=== PATIENT | male | born 1970 | race Caucasian/White ===

== ENCOUNTER 2023-05-01 14:08 | Outpatient (OUT) | payer OTHER, SELFPAY | END 2023-05-01 14:09 | disposition home or self-care (01) | LOC: WC 14:08 | PROVIDERS: PCP Family Medicine; Visit Provider Physician Assistant | DX: L97.909 Non-pressure chronic ulcer of unspecified part of unspecified lower leg with unspecified severity (principal); G62.9 Polyneuropathy, unspecified; L97.521 Non-pressure chronic ulcer of other part of left foot limited to breakdown of skin; S90.822A Blister (nonthermal), left foot, initial encounter; L08.89 Other specified local infections of the skin and subcutaneous tissue; L84 Corns and callosities; L72.0 Epidermal cyst; J44.9 Chronic obstructive pulmonary disease, unspecified; M13.80 Other specified arthritis, unspecified site; R73.9 Hyperglycemia, unspecified; I73.89 Other specified peripheral vascular diseases | CPT/HCPCS: 11043; 36415; 80048; 83036; 85025; G0463 ==

== ENCOUNTER 2023-05-01 14:51 | Outpatient (OUT) | payer OTHER, SELFPAY ==
[2023-05-01 15:11] LABS: Basophils Absolute Auto 0.1 10^3/uL (0.0-0.1); Basophils Percent Auto 0.7 % (0.2-2.0); Eosinophils Absolute Auto 0.3 10^3/uL (0.0-0.7); Eosinophils Percent Auto 2.4 % (0.9-7.0); Hematocrit 52.6 % (42.0-54.0); Hemoglobin 18.2 g/dL (14.0-18.0); Immature Granulocytes Abs Auto 0.05 10^3/uL (0.00-0.03); Immature Granulocytes Pct Auto 0.5 % (0.0-0.5); Lymphocytes Absolute Auto 2.9 10^3/uL (1.2-3.8); Lymphocytes Percent Auto 26.6 % (20.5-60.0); Mean Corpuscular HGB Conc 34.6 g/dL (29.9-35.2); Mean Corpuscular Hemoglobin 30.5 pg (25.9-34.0); Mean Corpuscular Volume 88.3 fL (80.0-94.0); Mean Platelet Volume 9.6 fL (9.5-13.5); Monocytes Absolute Auto 1.3 10^3/uL (0.3-0.8); Monocytes Percent Auto 11.8 % (1.7-12.0); Neutrophils Absolute Auto 6.2 10^3/uL (1.4-6.5); Platelet Count 266 10^3/uL (150-450); Red Blood Count 5.96 10^6/uL (4.70-6.10); Red Cell Distribution Width 13.3 % (11.0-15.0); White Blood Count 10.7 10^3/uL (4.0-11.0)
[2023-05-01 15:49] LABS: Anion Gap 13.6; BUN Creatinine Ratio 23.5; Calcium 9.8 mg/dL (8.5-10.1); Carbon Dioxide 28.8 mmol/L (21.0-32.0); Chloride 104 mmol/L (98-107); Estimated GFR (African America >60 (>=60); Estimated GFR (Non-African Ame >60 (>=60); Glucose 113 mg/dL (74-106); Potassium 5.4 mmol/L (3.5-5.1); Sodium 141 mmol/L (136-145)
[2023-05-01 15:52] LABS: Estimated Average Glucose 105 mg/dL; Glycohemoglobin A1C 5.3 % (4.5-6.2)
== END 2023-05-01 14:52 | disposition home or self-care (01) ==
LOC: LAB 14:52
PROVIDERS: PCP Family Medicine; Visit Provider Physician Assistant
DX: L97.909 Non-pressure chronic ulcer of unspecified part of unspecified lower leg with unspecified severity (principal); G62.9 Polyneuropathy, unspecified
CPT/HCPCS: 36415; 80048; 83036; 85025

== ENCOUNTER 2023-05-16 09:54 | Outpatient (OUT) | payer OTHER, SELFPAY ==
--- NOTE | 2023-05-16 09:59 | XR_ITS ---
The [address] [address] Patient Name: CHAKA DE LEÓN MRN: [id number] date: 1970 Sex: M Assigned Patient Location: Current Patient Location: Accession/Order Number: [id number] Exam Date: 05/16/2023 09:59 Report Date: 05/16/2023 12:42 At the request of: IMAN MIGUEL Procedure: XR foot LT min 3V EXAM: XR foot LT min 3V HISTORY: Left foot pain. COMPARISON: None. TECHNIQUE: 3 views left foot. FINDINGS: No fracture or dislocation. Mild to moderate degenerative change of the great toe MTP joint. Radiographically no focal soft tissue swelling or bone destruction seen. No radiopaque foreign body. XR/XR foot LT min 3V IMPRESSION: No acute process seen radiographically. Further workup with MRI could be obtained if indicated. Electronically authenticated by: RAINE KNIGHT Date: 05/16/2023 12:42
== END 2023-05-16 09:55 | disposition home or self-care (01) ==
LOC: WC 09:55
PROVIDERS: PCP Family Medicine; Visit Provider Podiatrist Foot & Ankle Surgery
DX: M79.672 Pain in left foot (principal); L97.521 Non-pressure chronic ulcer of other part of left foot limited to breakdown of skin
CPT/HCPCS: 73630; G0463

== ENCOUNTER 2023-06-02 10:14 | Outpatient (OUT) | payer OTHER, SELFPAY ==
--- NOTE | 2023-06-02 10:13 | ECG_ITS ---
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
--- NOTE | 2023-06-02 10:31 | XR_ITS ---
The [address] [address] Patient Name: CHAKA DE LEÓN MRN: [id number] date: 1970 Sex: M Assigned Patient [facility]: [facility] Current Patient Location: [facility] Accession/Order Number: [id number] Exam Date: 06/02/2023 10:54 Report Date: 06/02/2023 11:04 At the request of: IMAN MIGUEL Procedure: XR chest 2V EXAM: XR chest 2V HISTORY: PRE OP EXAM COMPARISON: None. TECHNIQUE: PA and lateral views of the chest. FINDINGS: The cardiomediastinal silhouette is normal. Apparent 17.3 mm pulmonary nodule of the right midlung field. This is poorly visualization of the lateral view. There is no pneumothorax. No pleural effusion is noted. The osseous structures are intact. XR/XR chest 2V IMPRESSION: Apparent 17.3 mm pulmonary nodule of the right midlung field. This is poorly visualization of the lateral view. Further evaluation with CT is recommended. Electronically authenticated by: BRADLEY CRANE Date: 06/02/2023 11:04
--- NOTE | 2023-06-02 10:51 | P.GSHP_ITS ---
History of Present Illness History of Present Illness Chief complaint: ulcer of left great toe Narrative: Patient presents for preadmission testing. Please see HPI from Dr. Robbins dated 05/16/2023. Review of Systems ROS Narrative REVIEW OF SYSTEMS: Negative except as stated in HPI, ten or more systems reviewed. Constitutional: No fever , chills, weakness ENT: No sore throat or epistaxis Cardiovascular: No edema, chest pain, palpitations, or activity intolerance Respiratory: No shortness of breath, cough, or wheezing Gastrointestinal: No abdominal pain, constipation, diarrhea, or vomiting Genitourinary: No dysuria or hematuria Neurological: No numbness, tingling, weakness, or headache Psychiatric: No mood changes PFSH PFS Medical History (Updated 06/02/23 @ 10:26 by Rochelle Urban NP) Surgical History (Updated 06/02/23 @ 10:26 by Rochelle Urban NP) Family History (Updated 06/02/23 @ 10:26 by Rochelle Urban NP) Other Family history of diabetes mellitus Family history of heart disease Family history of hypertension Family history of lung cancer Social History (Updated 06/02/23 @ 10:23 by Rochelle Urban NP) Within the past year, how often did you have a drink containing alcohol: never Score interpretation: A score less than 4 is consistent with normal alcohol consumption. Smoking status: Current every day smoker What tobacco products do you use: cigarettes Pack-years instructions: Please document either packs per day or cigarettes per day in order for pack years to calculate correctly. If using both packs per day and cigarettes per day, please make sure that they denote the same thing. If they differ, pack- years will calculate based on packs per day. Packs Per Day Cigarettes Per Day 1/4 of a pack 5 1/2 a pack 10 3/4 of a pack 15 1 pack 20 1.5 pack 30 2 packs 40 2.5 packs 50 3 packs 60 Packs per day: 2 Years smoked: 35 Smoking pack-years: 70.00 Highest level of school completed/degree received: high school graduate Meds Home Medications and Allergies Allergies Allergy/AdvReac Type Severity Reaction Status Date / Time No Known Drug Allergies Allergy Verified 06/02/23 10:22 Exam Narrative Exam Narrative: Constitutional: Awake, alert, comfortable, well-appearing, nontoxic, interactive, vital signs as charted Head: Normocephalic, atraumatic Neck: Supple, normal appearance, normal range of motion, no meningeal signs, no lymphadenopathy Respiratory: No respiratory distress, breath sounds clear Cardiovascular: Regular rate, irregular rhythm, systolic murmur noted Psychiatric: Oriented ?3, normal affect Assessment and Plan Assessment and Plan (1) Callus of foot: (2) Toe ulcer: Plan Left 1st MPJ fusion scheduled with Dr. Robbins 06/08/2023.
== END 2023-06-02 10:15 | disposition home or self-care (01) ==
PROVIDERS: PCP Emergency Medicine; Visit Provider Podiatrist Foot & Ankle Surgery
DX: Z01.810 Encounter for preprocedural cardiovascular examination (principal); L97.521 Non-pressure chronic ulcer of other part of left foot limited to breakdown of skin
CPT/HCPCS: 71046; 93005; G0463

== ENCOUNTER 2023-06-30 08:56 | Outpatient (OUT) | payer OTHER, SELFPAY | END 2023-06-30 08:57 | disposition home or self-care (01) | LOC: WC 08:56 | PROVIDERS: PCP Emergency Medicine; Visit Provider Podiatrist Foot & Ankle Surgery | DX: L97.521 Non-pressure chronic ulcer of other part of left foot limited to breakdown of skin (principal) | CPT/HCPCS: 11042 ==

== ENCOUNTER 2023-07-07 08:59 | Outpatient (OUT) | payer OTHER, SELFPAY | END 2023-07-07 09:00 | disposition home or self-care (01) | LOC: WC 08:59 | PROVIDERS: PCP Emergency Medicine; Visit Provider Podiatrist Foot & Ankle Surgery | DX: L97.521 Non-pressure chronic ulcer of other part of left foot limited to breakdown of skin (principal) | CPT/HCPCS: G0463 ==

== ENCOUNTER 2023-07-13 13:34 | Outpatient (OUT) | payer OTHER, SELFPAY ==
[2023-07-13 09:20] LABS: Hemoglobin 17.5 g/dL (14.0-18.0)
[2023-07-13] MEDS: ALBUTEROL SULFATE 2.5 MG/3 ML VIAL NEB IH (10:15)
--- NOTE | 2023-07-13 10:19 | RT_ITS ---
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 Findings were considered accurate and reproducible, with exception of pre-bronchodilator FVC which did not meet ATS standards. Both pre- and post-bronchodilator values utilized for spirometry. Due to software limitations, unable to assess for any prior studies for comparison. Spirometry (based on pre-bronchodilator values): -FEV1/FVC: Reduced @ 53% -FEV1: Mildly reduced @ 81% -FVC: Normal @ 119% -There is a partial bronchodilator response in FEV1 which meets >200mL increase but <12% change. Lung volumes by plethysmography (based on pre-bronchodilator values): -RV: High normal @ 117% -TLC: High normal @ 118% Diffusion capacity: -DLCO: Very severe reduction @ 37% when corrected for Hb 17.5g/dL Impressions: -Spirometry consistent with a mild obstruction with a partial bronchodilator response, normal lung volumes, and a very severe diffusion impairment which appears out of proportion to the remainder of the study. Hemoglobin is elevated suggesting a secondary polycythemia, likely associated with the reduced DLCO. Overall study is compatible with COPD/emphysema, though there may be an additional process contributing to the decreased DLCO (e.g. cardiac, ILD, smoking prior to the testing). Clinical correlation required. Electronically Signed On 07-13-2023 13:33:32 EDT by Sang Edwards
== END 2023-07-13 13:35 | disposition home or self-care (01) ==
LOC: CARD 13:35
PROVIDERS: PCP Emergency Medicine; Visit Provider Internal Medicine
DX: J43.2 Centrilobular emphysema (principal)
CPT/HCPCS: 36415; 85018; 94060; 94726; 94729; 99406

== ENCOUNTER 2023-07-17 15:09 | Outpatient (OUT) | payer OTHER, SELFPAY | END 2023-07-17 15:10 | disposition home or self-care (01) | LOC: WC 15:09 | PROVIDERS: PCP Emergency Medicine; Visit Provider Physician Assistant | DX: L97.521 Non-pressure chronic ulcer of other part of left foot limited to breakdown of skin (principal) | CPT/HCPCS: 11042 ==

== ENCOUNTER 2023-07-31 15:28 | Outpatient (OUT) | payer OTHER, SELFPAY | END 2023-07-31 15:29 | disposition home or self-care (01) | LOC: WC 15:28 | PROVIDERS: PCP Emergency Medicine; Visit Provider Physician Assistant | DX: L97.521 Non-pressure chronic ulcer of other part of left foot limited to breakdown of skin (principal) | CPT/HCPCS: G0463 ==

== ENCOUNTER 2023-08-18 09:03 | Outpatient (OUT) | payer OTHER, SELFPAY | END 2023-08-18 09:04 | disposition home or self-care (01) | LOC: WC 09:04 | PROVIDERS: PCP Emergency Medicine; Visit Provider Podiatrist Foot & Ankle Surgery | DX: L97.521 Non-pressure chronic ulcer of other part of left foot limited to breakdown of skin (principal) | CPT/HCPCS: G0463 ==

== ENCOUNTER 2023-09-07 10:13 | Outpatient (OUT) | payer OTHER, SELFPAY ==
[2023-09-07 11:11] LABS: Alanine Aminotransferase 31 U/L (16-63); Albumin Level 3.6 g/dL (3.4-5.0); Alkaline Phosphatase 114 U/L (46-116); Anion Gap 12.7; Aspartate Amino Transferase 19 U/L (15-37); BUN Creatinine Ratio 23.3; Bilirubin Total 0.3 mg/dL (0.2-1.0); Calcium 8.8 mg/dL (8.5-10.1); Carbon Dioxide 28.3 mmol/L (21.0-32.0); Chloride 104 mmol/L (98-107); Estimated GFR (African America >60 (>=60); Estimated GFR (Non-African Ame >60 (>=60); Globulin 3.5 g/dL; Glucose 101 mg/dL (74-106); Sodium 141 mmol/L (136-145); Total Protein 7.1 g/dL (6.4-8.2)
[2023-09-07 11:49] LABS: Basophils Absolute Auto 0.1 10^3/uL (0.0-0.1); Basophils Percent Auto 0.5 % (0.2-2.0); Eosinophils Absolute Auto 0.4 10^3/uL (0.0-0.7); Eosinophils Percent Auto 3.2 % (0.9-7.0); Hematocrit 49.1 % (42.0-54.0); Hemoglobin 16.5 g/dL (14.0-18.0); Immature Granulocytes Abs Auto 0.03 10^3/uL (0.00-0.03); Immature Granulocytes Pct Auto 0.3 % (0.0-0.5); Mean Corpuscular HGB Conc 33.6 g/dL (29.9-35.2); Mean Corpuscular Volume 92.1 fL (80.0-94.0); Mean Platelet Volume 10.1 fL (9.5-13.5); Monocytes Absolute Auto 1.1 10^3/uL (0.3-0.8); Monocytes Percent Auto 9.7 % (1.7-12.0); Neutrophils Absolute Auto 6.6 10^3/uL (1.4-6.5); Neutrophils Percent Auto 59.3 % (43.0-75.0); Platelet Count 242 10^3/uL (150-450); Red Blood Count 5.33 10^6/uL (4.70-6.10); Red Cell Distribution Width 12.7 % (11.0-15.0); White Blood Count 11.1 10^3/uL (4.0-11.0)
== END 2023-09-07 10:14 | disposition home or self-care (01) ==
LOC: PST 10:14
PROVIDERS: PCP Emergency Medicine; Visit Provider Podiatrist Foot & Ankle Surgery
DX: L97.521 Non-pressure chronic ulcer of other part of left foot limited to breakdown of skin (principal); Z01.812 Encounter for preprocedural laboratory examination
CPT/HCPCS: 36415; 80053; 85025

== ENCOUNTER 2025-06-11 11:27 | Outpatient (OUT) | payer OTHER, SELFPAY ==
--- OUTSIDE RECORDS SUMMARY | 2025-06-11 11:29 | XMS_ITS | Encounter Summary ---
Author Organization [facility] Address [address] [place] [address] Phone Care Team Providers Care Lithographing Machine Operator Name Role Phone Marguerite Degroot DO Primary Care Provider [phone] Marguerite Degroot DO Primary Care Provider [phone] Encounter Details Date Type Department Care Team (Late st Contact Info) Description 08/16/2023 Scanned Document [facility] [address] [place] [id number] Scanning, Generic Provider Social History Tobacco Use Types Packs/Day Years Used Date Smoking Tobacco: Never Assessed Sex and Gender Information Value Date Recorded Sex Assigned at Not on file Legal Sex Male 3:19 PM EDT Gender Identity Not on file Sexual Orientation Not on file COVID-19 Exposure Response Date Recorded In the last 10 days, have yo u been in contact with someone who was confirmed or suspected to have Coronavirus/COVID-19? No / Unsure 08/15/2023 8:33 AM EDT documented as of this encounter Plan of Treatment Not on file documented as of this encounter Procedures Procedure Name Priority Date/Time Associated Diagnosis Comments CARDIAC STRESS TEST 08/16/2023 documented in this encounter Results * CARDIAC STRESS TEST (08/16/2023) Narrative 08/16/2023 Ordered by an unspecified provider. us Generic Provider Scanning CV STRESS PROCEDURES F inal Result documented in this encounter Visit Diagnoses Not on filedocumented in this encounter Care Teams Lithographing Machine Operator Relationship Specialty Start Date End Date Marguerite Degroot DO [address] [place], [place] [id number] PCP - General 06/27/23 09/14/23 Marguerite Degroot DO [address] [place] [address] PCP - General Family Medicine 09/15/23 documented as of this encounter
--- OUTSIDE RECORDS SUMMARY | 2025-06-11 11:29 | XMS_ITS | Encounter Summary ---
Author Organization [facility] Address [address] [place] [address] Phone Care Team Providers Care Ballistic Expert Name Role Phone Magruerite Degroot DO Primary Care Provider [phone] Marguerite Degroot DO Primary Care Provider [phone] Encounter Details Date Type Department Care Team (Late st Contact Info) Description 06/27/2023 Scanned Document [facility] [address] [place] [address] Conversion, Onbase Social History Tobacco Use Types Packs/Day Years Used Date Smoking Tobacco: Never Assessed Sex and Gender Information Value Date Recorded Sex Assigned at Not on file Legal Sex Male 3:19 PM EDT Gender Identity Not on file Sexual Orientation Not on file documented as of this encounter Plan of Treatment Not on file documented as of this encounter Procedures Procedure Name Priority Date/Time Associated Diagnosis Comments ELECTROCARDIOGRAM RHYTHM STRIP 06/27/2023 documented in this encounter Results * ELECTROCARDIOGRAM RHYTHM STRIP (06/27/2023) Narrative 06/27/2023 Ordered by an unspecified provider. us Onbase Conversion ECG ORDERABLES Final Result documented in this encounter Visit Diagnoses Not on filedocumented in this encounter Care Teams Ballistic Expert Relationship Specialty Start Date End Date Marguerite Degroot DO [address] [place] [address] PCP - General 06/27/23 09/14/23 Marguerite Degroot DO [address] [place] [address] PCP - General Family Medicine 09/15/23 documented as of this encounter
--- OUTSIDE RECORDS SUMMARY | 2025-06-11 11:29 | XMS_ITS | Clinical Summary ---
Author Organization [facility] Address [address] [place] [address] Phone Care Team Providers Care Cyber Incident Handler Name Role Phone Marguerite Degroot Primary Care Provider [phone] Allergies No known active allergies Social History Tobacco Use Types Packs/Day Years Used Date Smoking Tobacco: Never Assessed Sex and Gender Information Value Date Recorded Sex Assigned at Not on file Legal Sex Male 3:19 PM EDT Gender Identity Not on file Sexual Orientation Not on file Last Filed Vital Signs Vital Sign Reading Time Taken Comments Blood Pressure 102/60 08/15/2023 11:20 AM EDT Pulse 73 08/15/2023 11:20 AM EDT Temperature - - Respiratory Rate - - Oxygen Saturation - - Inhaled Oxygen Concentration - - Weight 93 kg (205 lb) 08/15/2023 11:20 AM EDT Height 190.5 cm (6' 3 ) 08/15/2023 11:20 AM EDT Body Mass Index 25.62 08/15/2023 11:20 AM EDT Plan of Treatment Health Maintenance Due Date Last Done Comments CT Colonography 1970 Colonoscopy 1970 Colorectal Cancer Screening 1970 FIT-DNA (Cologuard) 1970 FIT 1970 HIV Screening 1970 Lipid Panel 1970 Sigmoidoscopy 1970 Yearly Adult Physical 1970 MMR Vaccines (1 of 1 - Stand romana series) 12/24/1971 Diabetes Screening 1988 Hepatitis C Screening 1988 Hepatitis B Vaccines (1 of 3 - 19+ 3-dose series) 1989 DTaP/Tdap/Td Vaccines (1 - Tdap) 1992 PSA Prostate Cancer Screening 2020 Pneumococcal Vaccine (1 of 1 - PCV) 2020 Zoster Vaccines (1 of 2) 2020 COVID-19 Vaccine (1 - 2023-2 5 season) 2024 Influenza Vaccine (#1) 2025 HIB Vaccines Aged Out No longer eligi ble based on patient's age to complete this topic HPV Vaccines Aged Out No longer eligi ble based on patient's age to complete this topic Hepatitis A Vaccines Aged Out No long er eligible based on patient's age to complete this topic IPV Vaccines Aged Out No longer eligi ble based on patient's age to complete this topic Meningococcal Vaccine Aged Out No tito palma eligible based on patient's age to complete this topic Rotavirus Vaccines Aged Out No longer eligible based on patient's age to complete this topic Insurance [employer] Care Teams Cyber Incident Handler Relationship Specialty Start Date End Date Marguerite Degroot DO [address] [place], [place] [id number] PCP - General Family Medicine 09/15/23
--- OUTSIDE RECORDS SUMMARY | 2025-06-11 11:30 | XMS_ITS | Clinical Summary ---
Author Organization [facility] Address [address] [place] [address] Care Team Providers Care Chicken And Fish Butcher Name Role Phone Marguerite Degroot MD Primary Care Provider Allergies No known active allergies Medications tiotropium-oloda terol (Stiolto Respimat) 2.5-2.5 MCG/ACT aerosol solution inhaler 1 (one) time each day at the same time. 07/12/2023 Active Active Problems Problem Noted Date Diagnosed Date Age-related nuclear cataract of left eye 23 Family History Medical History Relation Name Comments Cataracts Mother Diabetes Mother Relation Name Status Comments Mother Social History Tobacco Use Types Packs/Day Years Used Date Smoking Tobacco: Every Day Cigarettes Tobacco Cessation:Ready to Q uit: No; Counseling Given: Yes Sex and Gender Information Value Date Recorded Sex Assigned at Not on file Legal Sex Male 11:25 PM EDT Gender Identity Not on file Sexual Orientation Not on file Plan of Treatment Not on file Insurance [address] [place] [id number] [employer] Care Teams Chicken And Fish Butcher Relationship Specialty Start Date End Date Marguerite Degroot MD PCP - General Family Medicine 08/31/23
--- OUTSIDE RECORDS SUMMARY | 2025-06-11 11:30 | XMS_ITS | Encounter Summary ---
Author Organization [facility] Address [address] [place] [address] Phone Care Team Providers Care Actuarial Internship Name Role Phone Ambika Toscano APRN-HOME PARAPROFESSIONAL Primary Care Pro vider Marguerite Degroot DO Primary Care Provider [phone] Marguerite Degroot DO Primary Care Provider [phone] Encounter Details Date Type Department Care Team (Late st Contact Info) Description 06/22/[address] [facility] [address] [place] [address] Conversion, Onbase Social History Tobacco Use Types Packs/Day Years Used Date Smoking Tobacco: Never Assessed Sex and Gender Information Value Date Recorded Sex Assigned at Not on file Legal Sex Male 3:19 PM EDT Gender Identity Not on file Sexual Orientation Not on file documented as of this encounter Plan of Treatment Not on file documented as of this encounter Visit Diagnoses Not on filedocumented in this encounter Care Teams Actuarial Internship Relationship Specialty Start Date End Date Ambika Toscano APRN-CNP PCP - General 06/22/23 06/26/23 Marguerite Degroot DO [address] [place] [address] PCP - General 06/27/23 09/14/23 Marguerite Degroot DO [address] [place] [address] PCP - General Family Medicine 09/15/23 documented as of this encounter
--- OUTSIDE RECORDS SUMMARY | 2025-06-11 11:33 | XMS_ITS | CCD ---
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 Role Phone Anabell Degroot Primary Care Physician IMAN ROBBINS Attending Unavailable IMAN ROBBINS Admitting Unavailable ARASH, DR ROBIN Michael Primary Care Unavailable ARASH, DR ROBIN Michael Primary Care Unavailable MARILYNERTYSHABNAM Admitting Unavailabl e CLOUGHERTYSHABNAM Attending Unavailabl e CLOUGHERTYSHABNAM Attending Unavailabl e CLOUGHERTYSHABNAM Admitting Unavailabl e ARASH, DR ROBIN Michael Primary Care Unavailable ARASH, DR ROBIN Michael Primary Care Unavailable IMAN ROBBINS Consulting Unavailable IMAN ROBBINS Admitting Unavailable IMAN ROBBINS Attending Unavailable ELHAM GOODE Consulting Unavailable ARASH, DR ROBIN Michael Primary Care Unavailable IMAN ROBBINS Admitting Unavailable IMAN ROBBINS Attending Unavailable IMAN ROBBINS Attending Unavailable ARASH, DR ROBIN Michael Primary Care Unavailable IMAN ROBBINS Admitting Unavailable Anabell Degroot Unavailable Unavailable Unavailable Angelita, Dr. Guillermina Mejia Referring Dafne vailable Angelita, Dr. Guillermina Mejia Attending Dafne vailable Anabell Degroot DO Primary Care Provider Quintin Vo Attending Unavailable Quintin Vo Attending Unavailable Quintin Vo Referring Unavailable Quintin Vo Admitting Unavailable MEJIA HARDING Attending Unavailable CRISTOPHER DAY Referring Unavailable Anabell Degroot DO Primary Care Provider ANABELL DEGROOT Primary Care Unavailable GUILLERMINA GOLDSTEIN Referring Unavailable ANABELL DEGROOT Primary Care Unavailable GUILLERMINA GOLDSTEIN Referring Unavailable GUILLERMINA GOLDSTEIN Referring Unavailable ANABELL DEGROOT Primary Care Unavailable GUILLERMINA GOLDSTEIN Referring Unavailable ANABELL DEGROOT Primary Care Unavailable GUILLERMINA GOLDSTEIN Referring Unavailable ANABELL DEGROOT Primary Care Unavailable GUILLERMINA GOLDSTEIN Referring Unavailable ANABELL DEGROOT Primary Care Unavailable Medications Current Medications Medication Drug Class(es) Dates Sig (Normalized) Sig (Original) albuterol HFA 90 mcg/inh MDI (8 sources) Start: 10-11-2021 take 180 ug by inhalation every two hours albuterol HFA 90 mcg/inh MDI 180 mcg, 2 puff(s), Inhalation, q2hr Shortness of breath or wheezing, 8.5 gm, Refill(s) 0, [facility], 191, cm, 10/06/21 9:14:00 EST, Height/Length Dosing, 100, kg, 10/06/21 9:14:00 EST, Weight Dosing Start Date: 10/11/21 Status: Ordered apixaban 5 mg oral tablet (16 sources) Factor Xa Inhibitor Start: 10-11-2021 take 1 tablet by mouth twice daily Eliquis 5 mg oral tablet 5 mg = 1 tab(s), Oral, BID, # 60 tab(s), Refills(s) 3, Pharmacy: [facility] 1985, 191, cm, 11/01/21 13:08:00 EST, Height/Length Dosing, 97.2, kg, 11/01/21 13:07:00 EST, Weight Dosing Start Date: 11/01/21 Status: Ordered dexamethasone 6 mg oral tablet (8 sources) Corticosteroid Start: 10-11-2021 take 1 tablet by mouth once daily dexamethasone 6 mg oral tablet 6 mg = 1 tab(s), Oral, Daily, # 4 tab(s), Refills(s) 0, Pharmacy: [facility] 1985, 191, cm, 10/06/21 9:14:00 EST, Height/Length Dosing, 100, kg, 10/06/21 9:14:00 EST, Weight Dosing Start Date: 10/11/21 Status: Ordered ibuprofen 400 mg oral tablet (9 sources) Nonsteroidal Anti-inflammatory Drug Start: 11-01-2021 take 400 mg by mouth every six hours as needed for pain ibuprofen 400 mg, Oral, q6hr, PRN as needed for pain, Refills(s) 0 Start Date: 11/01/21 Status: Ordered Ibuprofen CAPS T ARIS 4 CAPSULE Daily Quantity: 0 Refills: 0 Ordered: 27-Jun-2023 DO Active Completed/Discontinued Medications Medication Drug Class(es) Dates Sig (Normalized) Sig (Original) aspirin 81 mg delayed release oral tablet (1 source) Platelet Aggregation Inhibitor, Nonsteroidal Anti-inflammatory Drug Start: 06-27-2023 take 1 tablet by mouth once daily Aspirin 81 MG Oral Tablet Delayed Release TAKE 1 TABLET DAILY. Quantity: 90 Refills: 3 Ordered: 27-Jun-2023 Guillermina Goldstein MD Start : 27-Jun-2023 Active regadenoson (Lexiscan) injection 0.4 mg (2 sources) Start: 08-15-2023 End: 08-15-2023 regadenoson (Lexiscan) injection 0.4 mg Problems Active Problems Problem Classification Problem Date Documented Date Episodic/Chronic Chronic obstructive pulmonary disease and bronchiectasis (10 sources) Chronic obstructive lung disease; Translations: [Chronic obstructive pulmonary disease, unspecified] Onset: 07-06-2022 09-23-2012 Chronic Chronic ulcer of skin (5 sources) Non-pressure chronic ulcer of other part of left foot with fat layer exposed; Translations: [N-PRS ULCR OTH PRT LT FT FAT EXPOS] Onset: 05-24-2022 Chronic Diabetes mellitus without complication (1 source) Hyperglycemia, unspecified; Translations: [HYPERGLYCEMIA UNSPECIFIED] Onset: 07-06-2022 Episodic Disorders of lipid metabolism (9 sources) Hypercholesterolemia; Translations: [Hyperlipidemia] 11-01-2021 Chronic Other circulatory disease (5 sources) Other specified peripheral vascular diseases; Translations: [OTH SPEC PERIPHERAL VASC DISEASES] Onset: 06-01-2022 Chronic Other circulatory disease (3 sources) Femoral bruit; Translations: [Other symptoms involving cardiovascular system] 08-15-2023 Episodic Other lower respiratory disease (3 sources) Disorder of lung; Translations: [Other disorders of lung] Onset: 01-31-2022 Episodic Other non-traumatic joint disorders (1 source) Other specified arthritis, unspecified site; Translations: [OTHER SPECIFIED ARTHRITIS UNS SITE] Onset: 06-01-2022 Chronic Other nutritional; endocrine; and metabolic disorders (1 source) Overweight in adulthood with body mass index of 25 or more but less than 30; Translations: [Overweight] Episodic Other skin disorders (1 source) Epidermal cyst; Translations: [EPIDERMAL CYST] Onset: 07-06-2022 Episodic Other skin disorders (1 source) Corns and callosities; Translations: [CORNS AND CALLOSITIES] Onset: 07-06-2022 Episodic Skin and subcutaneous tissue infections (1 source) Other specified local infections of the skin and subcutaneous tissue; Translations: [OTH SPEC LOC INFECT SKIN SUBQ TISS] Onset: 07-06-2022 Episodic Substance-related disorders (10 sources) Smoker; Translations: [Nicotine dependence, cigarettes, uncomplicated] Onset: 07-06-2022 10-24-2017 Chronic Comment on above: Added secondary to d ocumentation in Social History. 1-2 PACKS DAILY; Superficial injury; contusion (5 sources) Blister (nonthermal), left foot, sequela; Translations: [BLISTER NONTHERMAL LT FOOT SEQUELA] Onset: 08-02-2021 Episodic Past or Other Problems Problem Classification Problem Date Documented Date Episodic/Chronic Heart valve disorders (5 sources) Heart murmur; Translations: [Undiagnosed cardiac murmurs] Onset: 08-15-2023 08-15-2023 Episodic Other circulatory disease (2 sources) Other specified symptoms and signs involving the circulatory and respiratory systems; Translations: [Other specified symptoms and signs involving the circulatory and respiratory systems] Onset: 08-15-2023 Episodic Other screening for suspected conditions (not mental disorders or infectious disease) (3 sources) Electrocardiogram abnormal; Translations: [Nonspecific abnormal electrocardiogram [ECG] [EKG]] Onset: 08-15-2023 Episodic Unclassified (3 sources) cyst removed( Confirmed ) 10-07-2012 Unclassified (5 sources) cyst removed 10-07-2012 Results Test Name Value Interpretation Reference Range Facility Consent for Treatmenton Consent for Treatment [id number] IFF Normal [facility] Oncology Progress Noteon Oncology Progress Note Patient: Eyad DE LEÓN Age: 52 years Sex: Male : 1970 Associated Diagnoses: None Author: Quintin Vo DO History of Present Illness Mr. De León is a 51 year old man who presented initially in October [address] Stevenson. He had been diagnosed with COVID-pneumonia in September 2021 and was found to have a pulmonary embolism at that time. He was prescribed Eliquis at discharge from [facility]. He also has a history of some lung nodules that have been followed for 3-4 years now and have remained fairly stable overall. On September 2021 scans there was note of some increase in size of these nodules and some enlarged hilar and infrahilar lymph nodes. He was referred to oncology for further work-up. Plan will be to repeat CT of the chest in 3 months and see him in follow-up. 01/31/22 denies any symptoms today, feels well overall with good energy CT scan stable with resolution of enlarged hilar, infrahilar lymph nodes. no s/s of bleeding while on Eliquis he continues to smoke and is not interested in quitting currently 08/25/[address] with 2.3cm R pulmonary nodule and a few sub 5mm L pulmonary nodule. T10 vertebral body lesion is overal grwoing very slowly since 2018 now [id number] no new complaints. / 08/30/23 doing well. he is not on eliquis since january 2022. Review of Systems Constitutional: Negative. Eye: Negative. Ear/Nose/Mouth/Throat: Negative. Respiratory: Negative. Cardiovascular: Negative. Gastrointestinal: Negative. Genitourinary: Negative. Hematology/Lymphatics: Negative. Endocrine: Negative. Immunologic: Negative. Musculoskeletal: Negative. Integumentary: Negative. Neurologic: Negative. Psychiatric: Negative. All other systems are negative Health Status Allergies: Allergic Reactions (Selected) No Known Allergies Current medications: Home Medications (5) Active albuterol HFA 90 mcg/inh MDI 180 mcg = 2 puff(s), PRN, Inhalation, q2hr apixaban 5 mg oral tablet 5 mg = 1 tab(s), Oral, BID dexamethasone 6 mg oral tablet 6 mg = 1 tab(s), Oral, Daily Eliquis 5 mg oral tablet 5 mg = 1 tab(s), Oral, BID ibuprofen 400 mg, PRN, Oral, q6hr , No qualifying data available Problem list: All Problems Smoker / IMO 174010 / Confirmed Added secondary to documentation in Social History. Resolved: COPD / SNOMED CT 60826163 Resolved: cyst removed Resolved: Hypercholesterolemia / SNOMED CT 39559912 Canceled: Tobacco use / SNOMED CT [id number] Added secondary to social history documentation. Histories Past Medical History: Resolved COPD (22499482): Resolved. cyst removed: Resolved. Hypercholesterolemia (03481090): Resolved. Family History: No family history items have been selected or recorded. Procedure history: cyst removed. Social History Social & Psychosocial Habits Alcohol 08/30/2023 Risk Assessment: Denies Alcohol Use Comment: denies - 08/19/2019 09:22 - Lisa Fajardo RN Substance Abuse 08/30/2023 Risk Assessment: Denies Substance Abuse Comment: denies - 08/19/2019 09:22 - Lisa Fajardo RN Tobacco 08/30/2023 Risk Assessment: High Risk 08/30/2023 Tobacco Use: Current Type: Cigarettes Previous treatment: None Comment: 1 ppd - 09/23/2012 21:12 - Kaitlyn Davis RN 08/30/2023 Type: Cigarettes Comment: 1 ppd - 08/19/2019 09:22 - Lisa Fajardo RN . Physical Examination Vital Signs (last 24 hrs) Last Charted Temp Axillary 36.6 DegC (AUG 30 13:58) SBP 120 mmHg (AUG 30 13:57) DBP 73 mmHg (AUG 30 13:57) SpO2 97 % (AUG 30 13:58) General: Alert and oriented, No acute distress. Eye: Pupils are equal, round and reactive to light, Extraocular movements are intact, Normal conjunctiva. HENT: Normocephalic, Normal hearing. Neck: Supple, Non-tender, No jugular venous distention, No thyromegaly. Respiratory: Lungs are clear to auscultation, Respirations are non-labored, Breath sounds are equal, Symmetrical chest wall expansion, Good air exchange. Cardiovascular: Normal rate, Good pulses equal in all extremities, Normal peripheral perfusion. Gastrointestinal: Soft, Non-tender, Non-distended, Normal bowel sounds, no guarding, no tenderness. Lymphatics: negative. Musculoskeletal Normal range of motion. Normal strength. Normal gait. Neurologic: Alert, Oriented, Normal sensory, Normal motor function, No focal deficits, Cranial Nerves II-XII are grossly intact. Cognition and Speech: Oriented, Speech clear and coherent, Functional cognition intact. Psychiatric: Cooperative, Appropriate mood & affect. Integumentary: Warm, Dry, No pallor, No rash. Review / Management Results review: No qualifying data available . Impression and Plan Diagnosis Pulmonary embolus (OGD34-OL I26.99, Working, Medical). COVID-19 with pulmonary comorbidity (FYP42-JJ U07.1, Working, Medical). .. Pulmonary Embolus d/t COVID completed 6 mos El (more content not included)... Normal [facility] Outside Progress Noteon 07-25 Outside Progress Note [id number] TIFF Normal [facility] Heart TransthoracicOrdere d By: Guillermina Goldstein on 08-18-2023 LV A4C EF 74.7 [facility] Work Phone: [facility] Work Phone: Heart Transthoracicon [address], [address] [place] [address] TRANSTHORACIC ECHOCARDIOGRAM REPORT Patient Name: CHAKA COMPACharles Itzel Physician: [id number] Guillermina Goldstein MD, [facility] Study Date: 08/15/2023 Ordering Provider: [id number] GUILLERMINA GOLDSTEIN MRN/PID: [id number] Fellow: Nurse: Date of /Age: 3 1970 / 52 years 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 Robbins for Foot Ulcer/Date Pending, COPD, Hyperlipidemia, 2/6 Systolic Murmur, Tobacco Abuse, Overweight, Femoral Artery Bruit CPT Codes: Echo Complete w Full Doppler-[id number] Study Detail: The following Echo studies were performed: 2D, M-Mode, Doppler and color flow. PHYSICIAN INTERPRETATION: Left Ventricle: Left ventricular systolic function is normal, with an estimated ejection fraction of 65%. There are no regional wall motion abnormalities. The left ventricular cavity size is normal. Spectral Doppler shows a normal pattern of left ventricular diastolic filling. Left Atrium: The left atrium is normal in size. Right Ventricle: The right ventricle is normal in size. There is normal right ventricular global systolic function. Right Atrium: The right atrium is normal in size. Aortic Valve: The aortic valve appears abnormal. There is trace to mild aortic valve regurgitation. The peak instantaneous gradient of the aortic valve is 80.6 mmHg. The mean gradient of the aortic valve is 39.0 mmHg. Aortic valve is probably bicuspid with increased velocity up to 450 cm/s corresponding to a peak pressure gradient of 90 mmHg and a mean pressure gradient of 40 mmHg, these findings are consistent with severe aortic stenosis. Trivial regurgitation is noted, aortic valve area measured 0.9 cm . Mitral Valve: The mitral valve is mildly thickened. There is no evidence of mitral valve regurgitation. Tricuspid Valve: The tricuspid valve is structurally normal. There is trace tricuspid regurgitation. Pulmonic Valve: The pulmonic valve is structurally normal. There is no indication of pulmonic valve regurgitation. Pericardium: There is no pericardial effusion noted. Aorta: The aortic root is normal. Systemic Veins: The inferior vena cava appears to be of normal size. In comparison to the previous echocardiogram(s): No previous studies are available for comparison. CONCLUSIONS: 1. Left ventricular systolic function is normal with a 65% estimated ejection fraction. 2. Aortic valve appears abnormal. 3. Aortic valve is probably bicuspid with increased velocity up to 450 cm/s corresponding to a peak pressure gradient of 90 mmHg and a mean pressure gradient of 40 mmHg, these findings are consistent with severe aortic stenosis. Trivial regurgitation is noted, aortic valve area measured 0.9 cm . 4. No previous studies are available for comparison. QUANTITATIVE DATA SUMMARY: 2D MEASUREMENTS: Normal Ranges: Ao Root d: 3.30 cm (2.0-3.7cm) LAs: 3.40 cm (2.7-4.0cm) RVIDd: 2.80 cm (0.9-3.6cm) IVSd: 1.30 cm (0.6-1.1cm) LVPWd: 1.10 cm (0.6-1.1cm) LVIDd: 4.50 cm (3.9-5.9cm) LVIDs: 2.40 cm LV Mass Index: 89.3 g/m2 LV % FS 46.7 % LV SYSTOLIC FUNCTION BY 2D PLANIMETRY (MOD): Normal Ranges: EF-A4C View: 74.7 % (>=55%) LV DIASTOLIC FUNCTION: Normal Ranges: MV Peak E: 0.81 m/s (0.7-1.2 m/s) MV Peak A: 0.69 m/s (0.42-0.7 m/s) E/A Ratio: 1.17 (1.0-2.2) MV lateral e' 0.10 m/s MV medial e' 0.07 m/s E/e' Ratio: 8.20 (<8.0) MITRAL VALVE: Normal Ranges: MV Vmax: 1.22 m/s (<=1.3m/s) MV peak P.0 mmHg (<5mmHg) MV mean P.0 mmHg (<48mmHg) MITRAL INSUFFICIENCY: Normal Ranges: MR Vmax: 293.00 cm/s AORTIC VALVE: Normal Ranges: AoV Vmax: 4.49 m/s (<=1.7m/s) AoV Peak P.6 mmHg (<20mmHg) AoV Mean P.0 mmHg (1.7-11.5mmHg) LVO (more content not included)... 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 Robbins for Foot Ulcer/Date Pending, COPD, Hyperlipidemia, 2/6 Systolic Murmur, Tobacco Abuse, Overweight, Femoral Artery Bruit CPT Codes: Echo Complete w Full Doppler-[id number] Study Detail: The following Echo studies were performed: 2D, M-Mode, Doppler and color flow. PHYSICIAN INTERPRETATION: Left Ventricle: Left ventricular systolic function is normal, with an estimated ejection fraction of 65%. There are no regional wall motion abnormalities. The left ventricular cavity size is normal. Spectral Doppler shows a normal pattern of left ventricular diastolic filling. Left Atrium: The left atrium is normal in size. Right Ventricle: The right ventricle is normal in size. There is normal right ventricular global systolic function. Right Atrium: The right atrium is normal in size. Aortic Valve: The aortic valve appears abnormal. There is trace to mild aortic valve regurgitation. The peak instantaneous gradient of the aortic valve is 80.6 mmHg. The mean gradient of the aortic valve is 39.0 mmHg. Aortic valve is probably bicuspid with increased velocity up to 450 cm/s corresponding to a peak pressure gradient of 90 mmHg and a mean pressure gradient of 40 mmHg, these findings are consistent with severe aortic stenosis. Trivial regurgitation is noted, aortic valve area measured 0.9 cm . Mitral Valve: The mitral valve is mildly thickened. There is no evidence of mitral valve regurgitation. Tricuspid Valve: The tricuspid valve is structurally normal. There is trace tricuspid regurgitation. Pulmonic Valve: The pulmonic valve is structurally normal. There is no indication of pulmonic valve regurgitation. Pericardium: There is no pericardial effusion noted. Aorta: The aortic root is normal. Systemic Veins: The inferior vena cava appears to be of normal size. In comparison to the previous echocardiogram(s): No previous studies are available for comparison. CONCLUSIONS: 1. Left ventricular systolic function is normal with a 65% estimated ejection fraction. 2. Aortic valve appears abnormal. 3. Aortic valve is probably bicuspid with increased velocity up to 450 cm/s corresponding to a peak pressure gradient of 90 mmHg and a mean pressure gradient of 40 mmHg, these findings are consistent with severe aortic stenosis. Trivial regurgitation is noted, aortic valve area measured 0.9 cm . 4. No previous studies are available for comparison. QUANTITATIVE DATA SUMMARY: 2D MEASUREMENTS: Normal Ranges: Ao Root d: 3.30 cm (2.0-3.7cm) LAs: 3.40 cm (2.7-4.0cm) RVIDd: 2.80 cm (0.9-3.6cm) IVSd: 1.30 cm (0.6-1.1cm) LVPWd: 1.10 cm (0.6-1.1cm) LVIDd: 4.50 cm (3.9-5.9cm) LVIDs: 2.40 cm LV Mass Index: 89.3 g/m2 LV % FS 46.7 % LV SYSTOLIC FUNCTION BY 2D PLANIMETRY (MOD): Normal Ranges: EF-A4C View: 74.7 % (>=55%) LV DIASTOLIC FUNCTION: Normal Ranges: MV Peak E: 0.81 m/s (0.7-1.2 m/s) MV Peak A: 0.69 m/s (0.42-0.7 m/s) E/A Ratio: 1.17 (1.0-2.2) MV lateral e' 0.10 m/s MV medial e' 0.07 m/s E/e' Ratio: 8.20 (<8.0) MITRAL VALVE: Normal Ranges: MV Vmax: 1.22 m/s (<=1.3m/s) MV peak P.0 mmHg (<5mmHg) MV mean P.0 mmHg (<48mmHg) MITRAL INSUFFICIENCY: Normal Ranges: MR Vmax: 293.00 cm/s AORTIC VALVE: Normal Ranges: AoV Vmax: 4.49 m/s (<=1.7m/s) AoV Peak P.6 mmHg (<20mmHg) AoV Mean P.0 mmHg (1.7-11.5mmHg) LVOT Max Luis: 0.85 m/s (<=1.1m/s) AoV VTI: 90.30 cm (18-25cm) LVOT VTI: 15.60 cm LVOT Diameter: 2.50 cm (1.8-2.4cm) AoV Area, VTI: 0.85 cm2 (2.5-5.5cm2) AoV Area,Vmax: 0.93 cm2 (2.5-4.5cm2) AoV Dimensionless Index: 0.17 AORTIC INSUFFICIENCY: AI Vmax: 3.43 m/s AI Half-time: 395 msec AI Decel Rate: 254.00 cm/s2 TRICUSPID VALVE/RVSP: Normal Ranges: Peak TR Velocity: 2.00 m/s RV Syst Pressure: 19.0 mmHg (< 30mmHg) PULMONIC VALVE: Normal Ranges: PV Max Luis: 0.6 m/s (0.6-0.9m/s) PV Max P.5 mmHg PIEDV: 2.00 m/s PADP: 19.0 mmHg [id number] Guillermina Goldstein MD, [facility] Electronically signed on 08/18/2023 at 2:33:32 PM Final [facility] Work Phone: Vascular US PVR without exer ciseon 08-18-[address], [place] [address] Vascular Lab Report VASC US PVR WITHOUT EXERCISE Patient Name: CHAKA Robbins Physician: [id number] Guillermina Goldstein MD, FAC Study Date: 08/15/2023 Ordering Provider: [id number] GUILLERMINA GOLDSTEIN MRN/PID: [id number] Fellow: Technologist: Heaven Simmons RDCS, T Date of /Age: 3 1970 / 52 years Technologist 2: Gender: M Admission Status: Outpatient Location Performed: [facility] Diagnosis/ICD: Other specified symptoms and signs involving the circulatory and respiratory systems-R09.89 Indication: Left Femoral Artery Bruit, Abnormal EKG, POC-Dr. Robbins for Left Foot Ulcer/Date Pending, COPD, Hyperlipidemia, 2/6 Systolic Murmur, Tobacco Abuse, Overweight CONCLUSIONS: Bilateral Lower PVR: No evidence of arterial occlusive disease bilaterally in the lower extremities at rest. Right Lower PVR: Biphasic flow is noted in the right common femoral artery, right superficial femoral artery, right popliteal artery, right dorsalis pedis artery and right anterior tibial artery. Normal PVR waveform in the right lower extremity. Left Lower PVR: Biphasic flow is noted in the left common femoral artery, left superficial femoral artery, left popliteal artery, left dorsalis pedis artery and left anterior tibial artery. Normal PVR waveforms in the left lower extremity. Imaging & Doppler Findings: RIGHT Lower PVR Pressures Ratios Right High Thigh 121 mmHg 1.08 Right Low Thigh 135 mmHg 1.21 Right Calf 127 mmHg 1.13 Right Posterior Tibial (Ankle) 125 mmHg 1.12 Right Dorsalis Pedis (Ankle) 108 mmHg 0.96 LEFT Lower PVR Pressures Ratios Left High Thigh 134 mmHg 1.20 Left Low Thigh 138 mmHg 1.23 Left Calf 130 mmHg 1.16 Left Posterior Tibial (Ankle) 137 mmHg 1.22 Left Dorsalis Pedis (Ankle) 131 mmHg 1.17 Right Left Brachial Pressure 112 mmHg 101 mmHg Elkin Goldstein MD, FACC Final Guillermina Santos M D - 08/18/[address], [place] [address] Vascular Lab Report VASC US PVR WITHOUT EXERCISE Patient Name: CHAKA Robbins Physician: Elkin Goldstein MD, FACC Study Date: 08/15/2023 Ordering Provider: Elkin GOLDSTEIN MRN/PID: [id number] Fellow: Technologist: Heaven Simmons RDCS, T Date of /Age: 3 1970 / 52 years Technologist 2: Gender: M Admission Status: Outpatient Location Performed: [facility] Diagnosis/ICD: Other specified symptoms and signs involving the circulatory and respiratory systems-R09.89 Indication: Left Femoral Artery Bruit, Abnormal EKG, POC-Dr. Robbins for Left Foot Ulcer/Date Pending, COPD, Hyperlipidemia, 2/6 Systolic Murmur, Tobacco Abuse, Overweight CONCLUSIONS: Bilateral Lower PVR: No evidence of arterial occlusive disease bilaterally in the lower extremities at rest. Right Lower PVR: Biphasic flow is noted in the right common femoral artery, right superficial femoral artery, right popliteal artery, right dorsalis pedis artery and right anterior tibial artery. Normal PVR waveform in the right lower extremity. Left Lower PVR: Biphasic flow is noted in the left common femoral artery, left superficial femoral artery, left popliteal artery, left dorsalis pedis artery and left anterior tibial artery. Normal PVR waveforms in the left lower extremity. Imaging & Doppler Findings: RIGHT Lower PVR Pressures Ratios Right High Thigh 121 mmHg 1.08 Right Low Thigh 135 mmHg 1.21 Right Calf 127 mmHg 1.13 Right Posterior Tibial (Ankle) 125 mmHg 1.12 Right Dorsalis Pedis (Ankle) 108 mmHg 0.96 LEFT Lower PVR Pressures Ratios Left High Thigh 134 mmHg 1.20 Left Low Thigh 138 mmHg 1.23 Left Calf 130 mmHg 1.16 Left Posterior Tibial (Ankle) 137 mmHg 1.22 Left Dorsalis Pedis (Ankle) 131 mmHg 1.17 Right Left Brachial Pressure 112 mmHg 101 mmHg [id number] Guillermina Goldstein MD, FACC Final [facility] Work Phone: Vascular US PVR without exer ciseOrdered By: Guillermina Goldstein on 08-18-2023 [facility] Work Phone: NM Heart Perfusion W stress and W radionuclide Robina 08-15-2023 Normal Lexiscan Myov iew cardiac perfusion stress test. No evidence of ischemia or myocardial infarction by perfusion imaging. Normal left ventricular systolic function, ejection fraction 64%. No previous studies are available for comparison. Signed by: Guillermina Goldstein 08/15/2023 6:10 PM Dictation workstation: [id number] Interpreted By: Guillermina Goldstein, and Shalom Correia STUDY: MYOCARDIAL PERFUSION STRESS TEST WITH LEXISCAN Performing facility: [facility], [address] [place] [address] [address], [address] Provider: Guillermina Goldstein MD, [facility] PCP: Dr. Daniel Degroot Supervising provider: Guillermina Goldstein MD, [facility] INDICATION: Abn EKG Pre-operative risk assessment for Toe surgery scheduled at [place] on TBD. HISTORY: Gender: M; Age: 52 y/o ; Height: HT 190.5 cm cm; Weight: WT 92.987 kg kg. Abnormal EKG; High Cholesterol; COPD; Currently smoking. COMPARISON: No comparison. ACCESSION NUMBER(S): [id number] ORDERING CLINICIAN: GUILLERMINA GOLDSTEIN TECHNIQUE: ONE DAY protocol. Stress injection: Date:08-15-23, 35.6 mCi of Myoview IV 20 seconds after rapid injection of Lexiscan. Rest injection: Date: 08-15-23, 11.1 mCi of Myoview IV at rest. The patient had a rapid injection of 0.4 mg of Lexiscan IV over 10 seconds. Imaging was performed by gated tomographic technique. Reason for Lexiscan: Foot pain STRESS TEST DATA: Resting heart rate was 73 BPM. Resting blood pressure was 102/60 mmHg. Peak blood pressure was 106/66 mmHg. Peak heart rate was 103 BPM. TEST TERMINATED DUE TO: Protocol completed FINDINGS: STRESS TEST RESULTS: Resting electrocardiogram revealed normal sinus rhythm with incomplete right bundle branch block and septal myocardial infarction of undetermined age. There were no significant ischemic ECG changes or dysrhythmias. The patient did not have chest pains/symptoms during procedure. There was a normal recovery phase. IMAGING RESULTS: Image quality was good. Rest and stress tomographic images were reviewed and revealed normal perfusion without evidence of ischemia, myocardial infarction, or left ventricular dilatation with stress. Overall left ventricular systolic function appeared to be normal without regional wall motion abnormalities. Ejection fraction was 64%. TID is 1.13 and is normal. There was evidence of apical attenuation artifact. MMODAL Guillermina Goldstein M D - 08/15/2023 Interpreted By: Guillermina Goldstein and Giannuzzi Michael STUDY: MYOCARDIAL PERFUSION STRESS TEST WITH LEXISCAN Performing facility: [facility], [address], [address], [place] [id number] [facility] Provider: Guillermina Goldstein MD, [facility] PCP: Dr. Daniel Degroot Supervising provider: Guillermina Goldstein MD, [facility] INDICATION: Abn EKG Pre-operative risk assessment for Toe surgery scheduled at [place] on TBD. HISTORY: Gender: M; Age: 52 y/o ; Height: HT 190.5 cm cm; Weight: WT 92.987 kg kg. Abnormal EKG; High Cholesterol; COPD; Currently smoking. COMPARISON: No comparison. ACCESSION NUMBER(S): [id number] ORDERING CLINICIAN: GUILLERMINA GOLDSTEIN TECHNIQUE: ONE DAY protocol. Stress injection: Date:08-15-23, 35.6 mCi of Myoview IV 20 seconds after rapid injection of Lexiscan. Rest injection: Date: 08-15-23, 11.1 mCi of Myoview IV at rest. The patient had a rapid injection of 0.4 mg of Lexiscan IV over 10 seconds. Imaging was performed by gated tomographic technique. Reason for Lexiscan: Foot pain STRESS TEST DATA: Resting heart rate was 73 BPM. Resting blood pressure was 102/60 mmHg. Peak blood pressure was 106/66 mmHg. Peak heart rate was 103 BPM. TEST TERMINATED DUE TO: Protocol completed FINDINGS: STRESS TEST RESULTS: Resting electrocardiogram revealed normal sinus rhythm with incomplete right bundle branch block and septal myocardial infarction of undetermined age. There were no significant ischemic ECG changes or dysrhythmias. The patient did not have chest pains/symptoms during procedure. There was a normal recovery phase. IMAGING RESULTS: Image quality was good. Rest and stress tomographic images were reviewed and revealed normal perfusion without evidence of ischemia, myocardial infarction, or left ventricular dilatation with stress. Overall left ventricular systolic function appeared to be normal without regional wall motion abnormalities. Ejection fraction was 64%. TID is 1.13 and is normal. There was evidence of apical attenuation artifact. IMPRESSION: Normal Lexiscan Myoview cardiac perfusion stress test. No evidence of ischemia or myocardial infarction by perfusion imaging. Normal left ventricular systolic function, ejection fraction 64%. No previous studies are available for comparison. Signed by: Guillermina Goldstein 08/15/2023 6:10 PM Dictation workstation: [id number] [facility] Work Phone: Radiology Study observation (narrative) [facility] Work Phone: NM Heart Perfusion W stress and W radionuclide IVOrdered By: Giullermina Goldstein on 08-15-2023 [facility] Work Phone: NUCLEAR STRESS TESTon 2022 NUCLEAR STRESS TEST Interpreted By: Guillermina Goldstein and Giannuzzi Michael STUDY: MYOCARDIAL PERFUSION STRESS TEST WITH LEXISCAN Performing facility: [facility], [address], [address], [address] Provider: Guillermina Goldstein MD, FACC PCP: Dr. Daniel Degroot Supervising provider: Guillermina Goldstein MD, FACC INDICATION: Abn EKG Pre-operative risk assessment for Toe surgery scheduled at [place] on TBD. HISTORY: Gender: M; Age: 52 y/o ; Height: HT 190.5 cm cm; Weight: WT 92.987 kg kg. Abnormal EKG; High Cholesterol; COPD; Currently smoking. COMPARISON: No comparison. ACCESSION NUMBER(S): [id number] ORDERING CLINICIAN: GUILLERMINA GOLDSTEIN TECHNIQUE: ONE DAY protocol. Stress injection: Date:08-15-23, 35.6 mCi of Myoview IV 20 seconds after rapid injection of Lexiscan. Rest injection: Date: 08-15-23, 11.1 mCi of Myoview IV at rest. The patient had a rapid injection of 0.4 mg of Lexiscan IV over 10 seconds. Imaging was performed by gated tomographic technique. Reason for Lexiscan: Foot pain STRESS TEST DATA: Resting heart rate was 73 BPM. Resting blood pressure was 102/60 mmHg. Peak blood pressure was 106/66 mmHg. Peak heart rate was 103 BPM. TEST TERMINATED DUE TO: Protocol completed FINDINGS: STRESS TEST RESULTS: Resting electrocardiogram revealed normal sinus rhythm with incomplete right bundle branch block and septal myocardial infarction of undetermined age. There were no significant ischemic ECG changes or dysrhythmias. The patient did not have chest pains/symptoms during procedure. There was a normal recovery phase. IMAGING RESULTS: Image quality was good. Rest and stress tomographic images were reviewed and revealed normal perfusion without evidence of ischemia, myocardial infarction, or left ventricular dilatation with stress. Overall left ventricular systolic function appeared to be normal without regional wall motion abnormalities. Ejection fraction was 64%. TID is 1.13 and is normal. There was evidence of apical attenuation artifact. IMPRESSION: Normal Lexiscan Myoview cardiac perfusion stress test. No evidence of ischemia or myocardial infarction by perfusion imaging. Normal left ventricular systolic function, ejection fraction 64%. No previous studies are available for comparison. Signed by: Guillermina Goldstein 08/15/2023 6:10 PM Dictation workstation: [id number] [facility] Comment on above: Order Comment: José Antonio S elected: Y [facility] to schedule and to read TRANSTHORACIC ECHO (TTE) COM PLETEon 08-15-2023 TRANSTHORACIC ECHO (TTE) COMPLETE [address], [address], [place] [address] TRANSTHORACIC ECHOCARDIOGRAM REPORT Patient Name: CHAKA DE LEÓN Reading Physician: [id number] Guillermina Goldstein MD, [facility] Study Date: 08/15/2023 Ordering Provider: [id number] GUILLERMINA GOLDSTEIN MRN/PID: [id number] Fellow: Nurse: Date of /Age: 3 1970 / 52 years Stretching Machine Operator: Heaven Simmons RDCS, T Gender: M Additional Staff: Height: 190.50 cm Admit Date: Weight: 92.99 kg Admission Status: BSA: 2.22 m2 Department Location: [facility] Blood Pressure: 126 /72 mmHg Study Type: TRANSTHORACIC ECHO (TTE) COMPLETE Diagnosis/ICD: Cardiac murmur, unspecified-R01.1; Encounter for preprocedural cardiovascular examination-Z01.810 Indication: Abnormal EKG, POC-Dr. Robbins for Foot Ulcer/Date Pending, COPD, Hyperlipidemia, 2/6 Systolic Murmur, Tobacco Abuse, Overweight, Femoral Artery Bruit CPT Codes: Echo Complete w Full Doppler-[id number] Study Detail: The following Echo studies were performed: 2D, M-Mode, Doppler and color flow. PHYSICIAN INTERPRETATION: Left Ventricle: Left ventricular systolic function is normal, with an estimated ejection fraction of 65%. There are no regional wall motion abnormalities. The left ventricular cavity size is normal. Spectral Doppler shows a normal pattern of left ventricular diastolic filling. Left Atrium: The left atrium is normal in size. Right Ventricle: The right ventricle is normal in size. There is normal right ventricular global systolic function. Right Atrium: The right atrium is normal in size. Aortic Valve: The aortic valve appears abnormal. There is trace to mild aortic valve regurgitation. The peak instantaneous gradient of the aortic valve is 80.6 mmHg. The mean gradient of the aortic valve is 39.0 mmHg. Aortic valve is probably bicuspid with increased velocity up to 450 cm/s corresponding to a peak pressure gradient of 90 mmHg and a mean pressure gradient of 40 mmHg, these findings are consistent with severe aortic stenosis. Trivial regurgitation is noted, aortic valve area measured 0.9 cm???. Mitral Valve: The mitral valve is mildly thickened. There is no evidence of mitral valve regurgitation. Tricuspid Valve: The tricuspid valve is structurally normal. There is trace tricuspid regurgitation. Pulmonic Valve: The pulmonic valve is structurally normal. There is no indication of pulmonic valve regurgitation. Pericardium: There is no pericardial effusion noted. Aorta: The aortic root is normal. Systemic Veins: The inferior vena cava appears to be of normal size. In comparison to the previous echocardiogram(s): No previous studies are available for comparison. CONCLUSIONS: 1. Left ventricular systolic function is normal with a 65% estimated ejection fraction. 2. Aortic valve appears abnormal. 3. Aortic valve is probably bicuspid with increased velocity up to 450 cm/s corresponding to a peak pressure gradient of 90 mmHg and a mean pressure gradient of 40 mmHg, these findings are consistent with severe aortic stenosis. Trivial regurgitation is noted, aortic valve area measured 0.9 cm???. 4. No previous studies are available for comparison. QUANTITATIVE DATA SUMMARY: 2D MEASUREMENTS: Normal Ranges: Ao Root d: 3.30 cm (2.0-3.7cm) LAs: 3.40 cm (2.7-4.0cm) RVIDd: 2.80 cm (0.9-3.6cm) IVSd: 1.30 cm (0.6-1.1cm) LVPWd: 1.10 cm (0.6-1.1cm) LVIDd: 4.50 cm (3.9-5.9cm) LVIDs: 2.40 cm LV Mass Index: 89.3 g/m2 LV % FS 46.7 % LV SYSTOLIC FUNCTION BY 2D PLANIMETRY (MOD): Normal Ranges: EF-A4C View: 74.7 % (>=55%) LV DIASTOLIC FUNCTION: Normal Ranges: MV Peak E: 0.81 m/s (0.7-1.2 m/s) MV Peak A: 0.69 m/s (0.42-0.7 m/s) E/A Ratio: 1.17 (1.0-2.2) MV lateral e' 0.10 m/s MV medial e' 0.07 m/s E/e' Ratio: 8.20 (<8.0) MITRAL VALVE: Normal Ranges: MV Vmax: 1.22 m/s (<=1.3m/s) MV peak P.0 mmHg (<5mmHg) MV mean P.0 mmHg (<48mmHg) MITRAL INSUFFICIENCY: Normal Ranges: MR Vmax: 293.00 cm/s AORTIC VALVE: Normal Ranges: AoV Vmax: 4.49 m/s (<=1.7m/s) AoV Peak P.6 mmHg (<20mmHg) AoV Mean P.0 mmHg (1.7-11.5mmHg) LVOT Max Luis: 0.85 m/s (<=1.1m/s) AoV VTI: 90.30 cm (18-25cm) LVOT VTI: 15.60 cm LVOT Diameter: 2.50 cm (1.8-2.4cm) AoV Area, VTI: 0.85 cm2 (2.5-5.5cm2) AoV Area,Vmax: 0.93 cm2 (2.5-4.5cm2) AoV Dimensionless Index: 0.17 AORTIC INSUFFICIENCY: AI Vmax: 3.43 m/s AI Half-time: 395 msec AI Decel Rate: 254.00 cm/s2 TRICUSPID VALVE/RVSP: Normal Ranges: Peak TR Velocity: 2.00 m/s RV Syst Pressure: 19.0 mmHg (< 30mmHg) PULMONIC VALVE: Normal Ranges: PV Max Luis: 0.6 m/s (0.6-0.9m/s) PV Max P.5 mmHg PIEDV: 2.00 m/s PADP: 19.0 mmHg [id number] Guillermina Goldstein MD, [facility] Electronically signed on 08/18/2023 at 2:33:32 PM Final [facility] US PVR WITHOUT EXERCISE on 08-15-2023 [facility] US PVR WITHOUT EXERCISE [address], [address], [place] [address] Vascular Lab Report [facility] US PVR WITHOUT EXERCISE Patient Name: CHAKA DE LEÓN Itzel Physician: [id number] Guillermina Goldstein MD, FACC Study Date: 08/15/2023 Ordering Provider: [id number] GUILLERMINA GOLDSTEIN MRN/PID: [id number] Fellow: Technologist: Heaven Simmons RD, T Date of /Age: 3 1970 / 52 years Technologist 2: Gender: M Admission Status: Outpatient Location Performed: [facility] Diagnosis/ICD: Other specified symptoms and signs involving the circulatory and respiratory systems-R09.89 Indication: Left Femoral Artery Bruit, Abnormal EKG, POC-Dr. Robbins for Left Foot Ulcer/Date Pending, COPD, Hyperlipidemia, 2/6 Systolic Murmur, Tobacco Abuse, Overweight CONCLUSIONS: Bilateral Lower PVR: No evidence of arterial occlusive disease bilaterally in the lower extremities at rest. Right Lower PVR: Biphasic flow is noted in the right common femoral artery, right superficial femoral artery, right popliteal artery, right dorsalis pedis artery and right anterior tibial artery. Normal PVR waveform in the right lower extremity. Left Lower PVR: Biphasic flow is noted in the left common femoral artery, left superficial femoral artery, left popliteal artery, left dorsalis pedis artery and left anterior tibial artery. Normal PVR waveforms in the left lower extremity. Imaging & Doppler Findings: RIGHT Lower PVR Pressures Ratios Right High Thigh 121 mmHg 1.08 Right Low Thigh 135 mmHg 1.21 Right Calf 127 mmHg 1.13 Right Posterior Tibial (Ankle) 125 mmHg 1.12 Right Dorsalis Pedis (Ankle) 108 mmHg 0.96 LEFT Lower PVR Pressures Ratios Left High Thigh 134 mmHg 1.20 Left Low Thigh 138 mmHg 1.23 Left Calf 130 mmHg 1.16 Left Posterior Tibial (Ankle) 137 mmHg 1.22 Left Dorsalis Pedis (Ankle) 131 mmHg 1.17 Right Left Brachial Pressure 112 mmHg 101 mmHg [id number] Guillermina Goldstein MD, FACC Final [facility] Vascular US PVR without exer ciseon 08-15-2023 Radiology Study observation (narrative) [facility] Work Phone: CT Chest w/ Contraston 08-11 CT Chest w/ Contrast Exam Date/Time: 08/10/2023 09:25 EDT Reason for Exam: Lung nodule, multiple < 6mm;Other (please specify) Report IMPRESSION: STABLE CHRONIC CHANGES WITH ADVANCED EMPHYSEMA AND BENIGN BEHAVING NODULES. EXAM: CT Chest w/ Contrast INDICATION: Shortness of breath Lung nodule, multiple < 6mm TECHNIQUE: Helical CT was performed through the chest without IV contrast. COMPARISON: 08/16/2022 and 10/06/2021 FINDINGS Lungs: Advanced emphysematous changes. Multiple pulmonary nodules most striking in the right middle lobe. Several of these are juxtapleural. The largest measures 2 cm and contains multiple calcifications. These are not significantly changed. There stability and absence of FDG activity in a previous PET scan from 01/25/2018 Signs of advanced emphysema.. Consider low dose cancer screening protocol if not already enrolled in such a program. Pleura: No pleural effusion or thickening. Mediastinum: Mediastinum and tommy are normal. There are no pathologically enlarged lymph nodes. Vascular structures: There is no evidence for thoracic aortic aneurysm or dissection. No coronary artery calcifications noted Chest wall: The chest wall and lower neck are normal. Upper abdomen: The visualized portions of the upper abdomen are unremarkable. Bones: No aggressive skeletal lesions. All CT scans at this facility use dose modulation, iterative reconstruction, and/or weight based dosing when appropriate to reduce radiation dose to as low as reasonably achievable. Ordering Provider: Quintin Vo FINAL REPORT Dictated: 08/11/2023 10:40 am Quintin Herrera MD Signed (Electronic Signature): 08/11/2023 10:40 am Signed by: Quintin Herrera MD Transcribed by: DAVE Technologist: TORRI Technical Comments GFR (mL/min/1/73m2) na Contrast: Isovue 300 Contrast amount in ml's: 100 Normal [facility] Consent for Treatmenton 07-23 Consent for Treatment [id number]#1.00T IFF Normal [facility] Outside Progress Noteon 10- Outside Progress Note [id number] 0TIFF Normal [facility] Insurance Correspondenceon 1 Insurance Correspondence [id number]#1.00 TIFF Normal [facility] Office Visit (Cardiology)on 06-27-2023 Follow-up visit Diagnoses/Problems Assessed Pre-operative cardiovascular examination (V72.81) (Z01.810) Cardiac murmur (785.2) (R01.1) Abnormal EKG (794.31) (R94.31) COPD (chronic obstructive pulmonary disease) (496) (J44.9) Hyperlipidemia (272.4) (E78.5) Overweight with body mass index (BMI) of 25 to 25.9 in adult (278.02,V85.21) (E66.3,Z68.25) Current smoker (305.1) (F17.200) 1-2 PACKS DAILY Femoral bruit (785.9) (R09.89) Orders Abnormal EKG IO EKG Electrocardiogram- 12 Lead; Status:Complete; Done: 27Jun2023 Abnormal EKG, Femoral bruit VASC LAB PVR MULU only; Status:Hold For - Scheduling,Retrospectiv e Authorization; Requested for:27Jun2023; Abnormal EKG, Femoral bruit, Pre-operative cardiovascular examination US UP/Low Ext PVR; Status:Hold For - Scheduling,Retrospectiv e Authorization; Requested for:27Jun2023; Radiologist to Determine Optimal Study : Y What are the patient's signs and symptoms? : poc Abnormal EKG, Hyperlipidemia Start: Aspirin 81 MG Oral Tablet Delayed Release; TAKE 1 TABLET DAILY Abnormal EKG, Pre-operative cardiovascular examination NM Cardiac Stress/Rest Nuclear Med Order; Status:Hold For - Scheduling,Retrospectiv e Authorization; Requested for:27Jun2023; Radiologist to Determine Optimal Study : Y What are the patient's signs and symptoms? : poc Cardiac murmur, Pre-operative cardiovascular examination Echocardiogram; Status:Hold For - Scheduling,Retrospectiv e Authorization; Requested for:27Jun2023; Hyperlipidemia Lipid Panel; Status:Active - Retrospective Authorization; Requested for:[id number]; Overweight with body mass index (BMI) of 25 to 25.9 in adult Healthy Weight Tips; Status:Complete - Retrospective Authorization; Done: [id number] Some eating tips that can help you lose weight.; Status:Complete - Retrospective Authorization; Done: [id number] SocHx: Current smoker You need to stop smoking. Though it is not easy, more than half of all adult smokers have quit. We encourage you to write down all the reasons you should quit smoking and set a quit date for yourself. Ask us how we can help. You may also call 0-694-AFOIAugmenixNOW for free resources and assistance.; Status:Complete - Retrospective Authorization; Done: [id number] Tobacco Use Screening; Status:Complete; Done: [id number] Patient Instructions Please bring all medicines, vitamins, and herbal supplements with you when you come to the office. Prescriptions will not be filled unless you are compliant with your follow up appointments or have a follow up appointment scheduled as per instruction of your physician. Refills should be requested at the time of your visit. Follow-up after testing completed Lexiscan Echo PVR aspirin Lipid The provider reviewed the following test(s) and result(s) with the patient: ECG Chief Complaint CHAKA DE LEÓN is being seen for npv:jeri- abn ekg/ murmur. 53-year-old white male was referred to me for cardiac risk stratification prior to surgery on his left foot for nonhealing ulcer that has been there for couple of years. This is scheduled with Dr. Robbins in [place]. The patient is not a very good historian but confesses for being heavy tobacco user of more than 2 packs daily for years. He is labeled as having emphysema and has history of severe hyperlipidemia on medical therapy which he stopped taking when he run out of his medications. He is nonhypertensive and nondiabetic. Does not have family history of premature CAD. He came by himself. He was assessed recently by his PCP and he was found to have abnormal EKG and a cardiac murmur. They reported first-degree AV block. I do not have that EKG for my review but his EKG in my office did not demonstrate first-degree AV block but rather nonspecific ST and T changes. The patient denies any angina orthopnea PND or lower extremity edema but has nonhealing wound in his left foot. He has no knowledge of having had previous PVR studies. He has no syncope or cardiac arrhythmias. He only takes ibuprofen for generalized aches. His examination was remarkable for diminished breath sounds in his lungs and to/6 systolic murmur best heard at the left lower sternal border. It was nonradiating and there is no gallop or diastolic murmurs. He had no carotid bruits but has a left femoral artery bruit. His pulse was felt in all extremities with no dropout. He has overweight. The patient does not utilize oxygen at home. Assessment/recommendati ons: 1?patient need cardiac risk stratification before minor surgery involving the left foot for nonhealing ulcer for over couple of years. He has good pulses in his dorsalis pedis and posterior tibial but has left femoral artery bruit. He has abnormal EKG with nonspecific ST and T changes but no clinical angina. I do not have his lipid profile to calculate his 10-year cardiovascular risk category. The patient clearly need to have cardiac risk assessment using noninvasive measures. He will have a Lexiscan perfusion study, echocardiogram to (more content not included)... Normal [facility] Tobacco Screening.on 023 Fall risk assessment a) No falls within the last year [facility] [employer] 600 DO Work Phone: Tobacco use status CP a) Yes [facility] [employer] [facility] 600 DO Work Phone: Tobacco Screening. Yes [facility] [employer] 600 DO Work Phone: Physician Orderon 06-23-2023 Physician Order Scheduled in [facility] on 06/29. Spoke with Monika at [facility] and let her know I got patient scheduled. [id number]#1.00C D:127 Normal [facility] XR FOOT LT MIN 3 VIEWSon XR FOOT LT MIN 3 VIEWS STUDY: XR FOOT LT MIN 3 VIEWS HISTORY: Pain in left foot COMPARISON: Foot radiograph 12/02/2020 FINDINGS: Soft tissue irregularity with overlying bandage along the medial aspect of the first toe is without subjacent osseous irregularity. Mild joint space narrowing is again noted at the first MTP joint. There is no fracture or focal osseous destruction. There is mild posterior calcaneal spurring at the Achilles insertion. IMPRESSION: Soft tissue irregularity at the medial first toe without subjacent osseous irregularity. Mild degenerative changes at the first MTP joint. Electronically authenticated by: ELHAM GOODE Date: 2022-04-11 16:53 Normal [facility] Vital Signs Date Time Vital Sign Value Performing Clinician Facility 08-30-2023 13:58-0500 Heart rate 79 /min [facility] 08-30-2023 13:58-0500 SaO2% (BldA) [Mass fraction] 97 % [facility] 08-30-2023 13:58-0500 Body temperature 97.88 [degF] [facility] 08-30-2023 13:57-0500 Diastolic blood pressure 73 mm[Hg] [facility] 08-30-2023 13:57-0500 Mean blood pressure 89 mm[Hg] [facility] 08-30-2023 13:57-0500 Systolic blood pressure 120 mm[Hg] [facility] 08-30-2023 13:56-0500 Respiratory rate 14 /min [facility] 08-15-2023 11:20-0400 Body height 190.[address] 08-15-2023 11:20-0400 Body mass index (BMI) [Ratio] 25.62 kg/m2 [address] 08-15-2023 11:20-0400 Body weight 92.[address] 08-15-2023 11:20-0400 Diastolic blood pressure 60 mm[Hg] [address] 08-15-2023 11:20-0400 Heart rate 73 /min [address] 08-15-2023 11:20-0400 Systolic blood pressure 102 mm[Hg] [address] 08-15-2023 08:42-0400 Body height 190.[address] 08-15-2023 08:42-0400 Body mass index (BMI) [Ratio] 25.62 kg/m2 [address] 08-15-2023 08:42-0400 Body weight 92.[address] 08-15-2023 08:42-0400 Diastolic blood pressure 72 mm[Hg] [address] 08-15-2023 08:42-0400 Systolic blood pressure 126 mm[Hg] [address] 06-27-2023 11:21-0400 Diastolic blood pressure 54 mm[Hg] Anabell C Mikayla Work Phone: [facility] [employer] 600 DO Work Phone: 06-27-2023 11:21-0400 Systolic blood pressure 98 mm[Hg] Anabell C Mikayla Work Phone: [facility] [employer] 600 DO Work Phone: 06-27-2023 11:18-0400 Body height 190.5 cm Anabell C Mikayla Work Phone: [facility] [employer] 600 DO Work Phone: 06-27-2023 11:18-0400 Body mass index (BMI) [Ratio] 25.62 kg/m2 Anabell C Mikayla Work Phone: [facility] [employer] 600 DO Work Phone: 06-27-2023 11:18-0400 Body surface area Derived from formula 2.22 m2 Anabell C Mikayla Work Phone: [facility] [employer] 600 DO Work Phone: 06-27-2023 11:18-0400 Body weight 92.99 kg Anabell C Mikayla [facility] DO Work Phone: 06-27-2023 11:18-0400 Diastolic blood pressure 54 mm[Hg] Anabell Sampson Mikayla Work Phone: [facility] 600 DO Work Phone: 06-27-2023 11:18-0400 Heart rate 64 /min Anabell Sampson Mikayla Work Phone: [facility] 600 DO Work Phone: 06-27-2023 11:18-0400 Systolic blood pressure 100 mm[Hg] Anabell Sampson Mikayla Work Phone: [facility] 600 DO Work Phone: 08-25-2022 10:30-0400 Blood Pressure Location [facility] 08-25-2022 10:30-0400 Body temperature 98.24 [degF] [facility] 08-25-2022 10:30-0400 BP/Pulse Patient Position [facility] 08-25-2022 10:30-0400 Diastolic blood pressure 67 mm[Hg] [facility] 08-25-2022 10:30-0400 Heart rate 75 /min [facility] 08-25-2022 10:30-0400 Mean blood pressure 83 mm[Hg] [facility] 08-25-2022 10:30-0400 Respiratory rate 19 /min [facility] 08-25-2022 10:30-0400 SaO2% (BldA) [Mass fraction] 95 % [facility] 08-25-2022 10:30-0400 Systolic blood pressure 113 mm[Hg] [facility] 01-31-2022 12:33-0400 Blood Pressure Location Adwoa Monahan [facility] 01-31-2022 12:33-0400 Body temperature 97.7 [degF] Adwoa Monahan [facility] 01-31-2022 12:33-0400 BP/Pulse Patient Position Adwoa Monahan [facility] 01-31-2022 12:33-0400 Diastolic blood pressure 74 mm[Hg] Adwoa Monahan [facility] 01-31-2022 12:33-0400 Heart rate 91 /min Adwoa Monahan [facility] 01-31-2022 12:33-0400 Mean blood pressure 90 mm[Hg] Adwoa Monahan [facility] 01-31-2022 12:33-0400 Respiratory rate 17 /min Adwoa Monahan [facility] 01-31-2022 12:33-0400 SaO2% (BldA) [Mass fraction] 96 % Adwoa Taniya [facility] 01-31-2022 12:33-0400 Systolic blood pressure 121 mm[Hg] Adwoa Taniya [facility] Encounters Encounter Date Encounter Type Care Provider Facility Start: 09-05-2024 End: 09-12-2024 Pre-admission assessment Quintingaston Vo [facility] Start: 08-31-2023 End: 09-01-2023 ambulatory MEJIA HARDING Not Available Start: 08-30-2023 End: 08-31-2023 ambulatory Quintin Vo Facility:[facility] Start: 08-30-2023 End: 08-30-2023 Patient encounter procedure Quintin Vo [facility] Start: 08-15-2023 End: 08-15-2023 Subsequent hospital visit by physician Randee Beavers Stress Room 1 [facility] Start: 08-15-2023 End: 08-15-2023 Patient encounter status Randee 2 [facility] Work Phone: Start: 08-15-2023 End: 08-15-2023 Subsequent hospital visit by physician Randee Beavers Echo/Vasc Room 2 [facility] Comment on above: Femoral bruit Heart murmur; Pre-operative cardiovascular examination Start: 08-15-2023 End: 08-15-2023 ambulatory GUILLERMINA GOLDSTEIN [facility] Start: 08-15-2023 End: 08-15-2023 Encounter for preprocedural cardiovascular examination ANABELL DEGROOT [facility] Start: 08-10-2023 End: 08-11-2023 ambulatory Quintin Vo Facility:[facility] Start: 08-10-2023 End: 08-10-2023 Patient encounter procedure Quintin Vo [facility] Start: 06-27-2023 Office consultation new/estab patient 60 min Anabell Sampson NarvaezMikayla Work Phone: [facility] 600 DO Work Phone: Start: 06-27-[address] Guillermina Goldstein Facility: Start: 06-22-[address] [facility] Start: 08-25-2022 End: 08-25-2022 Patient encounter procedure Quintin Vo [facility] Start: 08-16-2022 End: 08-16-2022 Patient encounter procedure Adwoa Gonzales Taniya [facility] Start: 06-20-2022 End: 06-21-2022 ambulatory IMAN ROBBINS Facility:[facility] Start: 05-24-2022 End: 05-25-2022 ambulatory IMAN ROBBINS Facility:[facility] Start: 04-26-2022 End: 04-27-[address] ROBIN ANTOINE Facility:[facility] Start: 04-11-2022 End: 04-12-[address] ROBIN ANTOINE Facility:[facility] Start: 01-31-2022 End: 01-31-2022 Patient encounter procedure Adwoa Monahan [facility] Start: 01-28-2022 End: 01-28-2022 Patient encounter procedure Quintin Vo [facility] Start: 01-28-2022 End: 01-29-2022 Pre-admission assessment Cristopher Stevenson [facility] Start: 10-04-[address] ROBIN ANTOINE Facil ity:[facility] Start: 08-02-2021 End: 08-03-2021 ambulatory HAQUE Lizz MORENOCHARAN Facility:[facility] Patient encounter status Anabell Degroot Work Phone: [facility] 600 DO Work Phone: Procedures Date Procedure Procedure Detail Performing Clinician Start: 08-15-2023 NUCLEAR STRESS TEST RANDEE DEGROOT Start: 08-15-2023 Cv strs tst xers&/or rx cont ecg trcg only Guillermina Goldstein MD Work Phone: Start: 08-15-2023 VASC US PVR WITHOUT EXERCISE ANABELL DEGROOT Start: 08-15-2023 TRANSTHORACIC ECHO ( TTE) COMPLETE ANABELL DEGROOT Start: 08-15-2023 Non-invasive physiol ogic study extremity 3 levls Guillermina Goldstein MD Work Phone: Start: 08-15-2023 Echo tthrc r-t 2d w/wom-mode compl spec&colr d Guillermina Goldstein MD Work Phone: cyst removed Quintin Rodriguez cz Tonsillectomy Anabell Degroot Work Phone: Plan of Treatment Date Care Activity Detail Author Start: 09-19-2023 FUV, Provider: Guillermina Goldstein, Status: Pen, Time: 11:30 AM FUV, Provider: Guillermina Goldstein, Status: Pen, Time: 11:30 AM -[facility] 600 DO Work Phone: Start: 09-19-2023 End: 09-19-2023 Patient encounter procedure 09/19/2023 11:30 AM EST Office Visit [place] [address] [place] [address] Guillermina Goldstein MD [address] [facility] 2, [address] [place] [address] [facility] Start: 08-15-2023 PVR, Provider: BINTA HERRERA [facility] 01,[id number], Status: Pen, Time: 9:45 AM PVR, Provider: ARIANNA [facility] ULTRASOUND 01,[id number], Status: Pen, Time: 9:45 AM [facility] 600 DO Work Phone: Start: 08-15-2023 ECHO, Provider: EDISON GONZALEZ [facility] ULTR[facility] 01,[id number], Status: Pen, Time: 8:45 AM ECHO, Provider: ARIANNA [facility] ULTRASOUND 01,[id number], Status: Pen, Time: 8:45 AM -[facility] 600 DO Work Phone: Start: 08-15-2023 STRESS NUC, Provider : ARIANNA [facility] NUCLEAR 01,[id number], Status: Pen, Time: 8:00 AM STRESS NUC, Provider: ARIANNA [facility] NUCLEAR 01,[id number], Status: Pen, Time: 8:00 AM [facility] 600 DO Work Phone: Start: 06-23-2023 Influenza vaccination Influenza Vacc ine (#1) [facility] Start: 2020 Zoster Vaccines (1 of 2) Zoste r Vaccines (1 of 2) [facility] Start: 1992 DTaP/Tdap/Td Vaccine s (1 - Tdap) DTaP/Tdap/Td Vaccines (1 - Tdap) [facility] Start: 1989 Hepatitis A Vaccines (1 of 2 - Risk 2-dose series) Hepatitis A Vaccines (1 of 2 - Risk 2-dose series) [facility] Start: 1988 Diabetes mellitus screening Diabetes Screening [facility] Start: 1988 Hepatitis C screening Hepatitis C Sc [facility] Start: 1976 Pneumococcal Vaccine : Pediatrics (0 to 5 Years) and At-Risk Patients (6 to 64 Years) (1 - PCV) Pneumococcal Vaccine: Pediatrics (0 to 5 Years) and At-Risk Patients (6 to 64 Years) (1 - PCV) [facility] Start: 12-24-1971 MMR Vaccines (1 of 1 - Standard series) MMR Vaccines (1 of 1 - Standard series) [facility] Start: 06-25-1971 COVID-19 Vaccine (#1) COVID-19 Vacci ne (#1) [facility] Start: 1970 Hepatitis B Vaccines (1 of 3 - 3-dose series) Hepatitis B Vaccines (1 of 3 - 3-dose series) [facility] Start: 1970 HIV screening HIV Screening [facility] Start: 1970 Lipid panel Lipid Panel [facility] Start: 1970 Screening for malign ant neoplasm of colon [facility] Start: 1970 Yearly Adult Physical Yearly Adult P hysical [facility] End: 08-15-2023 US [facility]hor[facility] Work Phone: Comment on above: Once for 1 Occurrenc es starting 08/15/2023 until 08/15/2023 End: 08-15-2023 Vascular US PVR without exercise [facility] Work Phone: Comment on above: Once for 1 Occurrenc es starting 08/15/2023 until 08/15/2023 Payers Date Payer Category Payer Unknown 2021 Unknown [id number] 1970 Unknown [id number] 2.16.84 [id number] 1970 Unknown [id number] 2.16.84 [id number] 1970 Unknown [id number] 2.16.84 [id number] 1970 Unknown [id number] 2.16.84 0.1.020520.3.579.2.593 1970 Unknown [id number] 2.16.84 0.1.783908.3.579.2.593 1970 Unknown [id number] 2.16.84 0.1.731616.3.579.2.593 1970 Unknown [id number] 2.16. [id number] 1970 Unknown [id number] 2.16.8 40.1.810871.3.579.2.727 1970 Unknown [id number] 2.16.8 40.1.101281.3.579.2.727 1970 Unknown [id number] 2.16.840. 1.594812.3.579.2.1259 1970 Unknown [id number] 2.16.840 .1.928490.3.579.2.1246 1970 Unknown [id number] 2.16.840 .1.750659.3.579.2.1246 1970 Unknown [id number] 2.16.840 .1.737612.3.579.2.1246 1970 Unknown [id number] 2.16.840 .1.887941.3.579.2.1246 1970 Unknown [id number] 2.16.84 0.1.367870.3.579.2.1246 1970 Unknown [id number] 2.16.8 40.1.364515.3.579.2.1246 1970 Unknown [id number] 2.16.8 [id number] 1959 Unknown [id number] Social History Date Type Detail Facility Tobacco Cigarettes [facility] Comment on above: 1 ppd Sex Assigned At Male [facility] Tobacco smoking status No Smokin g Status Entered [facility] Daily caffeine consumption Daily caffeine consumption -[facility] 600 DO Work Phone: Comment on above: 1-2 PACKS DAILY; [facility] Work Phone: Start: 1970 Sex Assigned At Not on file U [facility] Work Phone: Start: 08-05-2023 End: 08-15-2023 Exposure to SARS-CoV-2 (event) Not sure [facility] Clinical Notes 11-01-2021 to 11-28-2023 RadiologyRadiologyRadiologyRadiology Note Date & Type Note Facility 11-28-2023 Evaluation + Plan note Future Scheduled TestsCT Chest, Low Dose Screening 11/28/23 [facility] 08-26-2022 Hospital Discharg e instructions Follow Up Care 08/26/2022 10:06:59 With:Quintin Vo Address: [address] [address] [phone] [employer] (1) When: Unknown Comments:f/u in [address] chest low dose screening prior to f/u in 1 year. If he talks to Dr. Degroot, she can order ct screening and do f/u and he will not need to see me. [facility] 08-15-2022 Hospital Discharg e instructions Follow Up Care 08/15/2022 13:08:07 With:Quintin Vo Address: [address] [address] [phone] [employer] (1) When: Unknown Comments:f/u with me or opal after ct ches with contrast in a year. [facility] 11-01-2021 Hospital Discharg e instructions Follow Up Care 11/01/2021 13:28:42 With:Quintin Vo Address: [address] [place] [address] [phone] [employer] (1) When: Unknown Comments:finish Sowmya in JuneCT chest w/ contrast in 6mofollow-up with Dr. Dobbins in 6mo after scan [facility] Evaluation + Plan note Future Appointments Appointment Date:01/31/2022 12:30:00 PM Scheduled Provider:Adwoa Delgado Location:FT.ONCOLOGY Appointment Type:ONC Office Visit 15 (FT) [facility] Evaluation + Plan note Future Appointments Appointment Date:08/10/2022 12:30:00 PM Scheduled Provider:Quintin Vo DO Location:[facility].ONCOLOGY Appointment Type:ONC Office Visit 15 (FT) Future Scheduled TestsCT Chest w/ Contrast 08/02/22 [facility] Evaluation + Plan note Future Appointments Appointment Date:08/25/2022 10:15:00 AM Scheduled Provider:Quintin Vo DO Location:FT.ONCOLOGY Appointment Type:ONC Office Visit 30 (FT) [facility] Evaluation + Plan note Future Scheduled TestsCT Chest w/ Contrast 08/09/23 [facility] Evaluation + Plan note Future Appointments Appointment Date:08/30/2023 02:00:00 PM Scheduled Provider:Quintin Vo DO Location:FT.ONCOLOGY Appointment Type:ONC Office Visit 15 (FT) [facility] Evaluation + Plan note Future Scheduled TestsCT Chest, Low Dose Screening 11/28/23 [facility] Evaluation note Diagnosis Femoral bruit documented in this encounter [facility] Work Phone: Evaluation note* Diagnosis Heart murmur Undiagnosed cardiac murmurs Pre-operative cardiovascular examination documented in this encounter [facility] Work Phone: Evaluation note* Diagnosis Femoral bruit documented in this encounter [facility] Work Phone: Evaluation note* Diagnosis Heart murmur Undiagnosed cardiac murmurs Pre-operative cardiovascular examination documented in this encounter [facility] Work Phone: Hospital course Narrative No data available for this section [facility] No data available for this section [facility] No data available for this section [facility] Summary Purpose Family History Unknown Family Member Name Dates Details No pertinent family history: Mother(V49.89, Z78.9) Status:Active Advance Directives No Advanced Directives Records FoundNo Advanced Directives Records FoundNo Advanced Directives Records FoundNo Advanced Directives Records FoundNo Advanced Directives Records FoundNo Advanced Directives Records Found Chief Complaint * CHAKA DE LEÓN is being seen for npv:jeri- abn ekg/ murmur. * 53-year-old white male was referred to me for cardiac risk stratification prior to surgery on his left foot for nonhealing ulcer that has been there for couple of years. This is scheduled with Dr. Robbins in [place]. The patient is not a very good historian but confesses for being heavy tobaccouser of more than 2 packs daily for years. He is labeled as having emphysema and has history of severe hyperlipidemia on medical therapy which he stopped taking when he run out of his medications. Heis nonhypertensive and nondiabetic. Does not have family history of premature CAD. He came by himsel f. He was assessed recently by his PCP and he was found to have abnormal EKG and a cardiac murmur. They reported first-degree AV block. I do not have that EKG for my review but his EKG in my office did not demonstrate first-degree AV block but rather nonspecific ST and T changes. The patient deniesany angina orthopnea PND or lower extremity edema but has nonhealing wound in his left foot. He hasno knowledge of having had previous PVR studies. He has no syncope or cardiac arrhythmias. He only takes ibuprofen for generalized aches. His examination was remarkable for diminished breath sounds in his lungs and to/6 systolic murmur best heard at the left lower sternal border. It was nonradiating and there is no gallop or diastolic murmurs. He had no carotid bruits but has a left femoral artery bruit. His pulse was felt in all extremities with no dropout. He has overweight. The patient does not utilize oxygen at home. * Assessment/recommendations: * 1 patient need cardiac risk stratification before minor surgery involving the left foot for nonhealing ulcer for over couple of years. He has good pulses in his dorsalis pedis and posterior tibial but has left femoral artery bruit. He has abnormal EKG with nonspecific ST and T changes but no clinical angina. I do not have his lipid profile to calculate his 10-year cardiovascular risk category. The patient clearly need to have cardiac risk assessment using noninvasive measures. He will have a Lexiscan perfusion study, echocardiogram to assess the cardiac murmur and a PVR study to assess the severity of his PAD. Aspirin is recommended and lipid profile is ordered and will use his lab data to assess his cardiac risks. * 2 a cardiac murmur that is systolic in nature best heard at the left lower sternal border, aortic stenosis cannot be excluded. Echocardiogram is ordered. * 3 emphysema from heavy tobacco abuse but currently not symptomatic and not utilizing inhalers or oxygen. Tobacco cessation was strongly advocated * 4 heavy tobacco abuse up to 2 packs on daily basis. Encouraged the patient to find a way to quit smoking. Offered the patient pharmacological therapy such as Chantix and nicotine patches. * 5 abnormal EKG with nonspecific ST and T changes. Could be a manifestation of underlying CAD for which Lexiscan perfusion study was recommended. * 6 hyperlipidemia that has been treated previously but the patient did not continue therapy once he ran out of his medications. We will check his lipid profile and address accordingly. Reason for Referral Specialty Diagnoses / Procedures Referred By Oneil enrique Referred To Contact Cardiology Diagnoses Heart murmur Pre-operative cardiovascular examination Procedures Transthoracic Echo (TTE) Complete TN ECHO TRANSTHORC R-T 2D W/WO M-MODE REC F-UP/LMTD TN DOP ECHOCARD COLOR FLOW VELOCITY MAPPING TN DOP ECHOCARD PULSE WAVE W/SPECTRAL F-UP/LMTD STD Guillermina Goldstein MD [address] [facility] 2, [address] [address] Referral ID Status Reason Start Date Expiration Date Visits Requested Visits Authorized [id number] Authorized Perform Procedure 07/17/2023 01/13/2024 1 1 Specialty Diagnoses / Procedures Referred By Oneil enrique Referred To Contact Cardiology Diagnoses Femoral bruit Procedures Vascular US PVR without exercise Guillermina Goldstein MD [address], [address] [place] [address] Referral ID Status Reason Start Date Expiration Date Visits Requested Visits Authorized [id number] Authorized Perform Procedure 07/17/2023 01/13/2024 1 1 Additional Source Comments (unrecognized sect ion and content) No Status Records FoundNo Status Records FoundNo Status Records FoundNo Status Records FoundNo Status Records FoundNo Status Records Found INFORMATION SOURCE (unrecogn ized section and content) DATE CREATED AUTHOR 07/19/2022 [facility] [place] [facility] DATE CREATED AUTHOR AUTHOR'S ORGANIZ ATION 06/27/2023 [facility] DATE CREATED AUTHOR AUTHOR'S ORGANIZ ATION 06/28/2023 [employer] DATE CREATED AUTHOR AUTHOR'S ORGANIZ ATION 09/01/2023 [facility] DATE CREATED AUTHOR AUTHOR'S ORGANIZ ATION 09/04/2023 [facility] EPIC DATE CREATED AUTHOR AUTHOR'S ORGANIZ ATION 06/04/2024 [facility] Patient Care team informatio n (unrecognized section and content) Personnel Name: Anabell Degroot DO Address: Address: [address] [place] [address] Liza tyler , [address] [employer] Relationship Specialty Start Date End Date Anabell Degroot DO [address] [place] [address] PCP - General 06/27/23 [employer] Relationship Specialty Start Date End Date Anabell Degroot DO [address] [place] [address] PCP - General 06/27/23 [employer] Relationship Specialty Start Date End Date Anabell Degroot DO PCP - General 06/27/23 [employer] Relationship Specialty Start Date End Date Anbaell Degroot DO PCP - General 06/27/23 Reason for Visit (unrecogniz ed section and content) Specialty Diagnoses / Procedures Referred By Oneil t Referred To Contact Cardiology Diagnoses Femoral bruit Procedures Vascular US PVR without exercise Guillermina Goldstein MD [address] [facility] [address], [address] [address] Referral ID Status Reason Start Date Expiration Date Visits Requested Visits Authorized [id number] Authorized Perform Procedure 07/17/2023 01/13/2024 1 1 Specialty Diagnoses / Procedures Referred By Oneil t Referred To Contact Radiology Diagnoses Abnormal electrocardiogram (ECG) (EKG) Encounter for preprocedural cardiovascular examination Procedures Nuclear Stress Test CHG MYOCARDIAL SPECT MULTIPLE STUDIES CHG MYOCARDIAL SPECT SINGLE STUDY AT REST OR STRESS TN CV STRS TST XERS&/OR RX CONT ECG W/O I&R TN CV STRS TST XERS&/OR RX CONT ECG I&R ONLY TN CV STRS TST XERS&/OR RX CONT ECG TRCG ONLY TN CV STRS TST XERS&/OR RX CONT ECG W/SI&R Guilelrmina Goldstein MD [address] [facility] 2, [address] [address] Referral ID Status Reason Start Date Expiration Date V isits Requested Visits Authorized [id number] Authorized 07/06/2023 01/02/2024 3 3 Specialty Diagnoses / Procedures Referred By Oneil t Referred To Contact Cardiology Diagnoses Heart murmur Pre-operative cardiovascular examination Procedures Transthoracic Echo (TTE) Complete TN ECHO TRANSTHORC R-T 2D W/WO M-MODE REC F-UP/LMTD TN DOP ECHOCARD COLOR FLOW VELOCITY MAPPING TN DOP ECHOCARD PULSE WAVE W/SPECTRAL F-UP/LMTD STD Guillermina Goldstein MD [address], [address] [address] Referral ID Status Reason Start Date Expiration Date Visits Requested Visits Authorized [id number] Authorized Perform Procedure 07/17/2023 01/13/2024 1 1 FOR RECORDS PERTAINING TO PATIENTS WHO ARE OR HAVE BEEN ENROLLED IN A CHEMICAL DEPENDENCY/SUBSTANCEABUSE PROGRAM, SOME INFORMATION MAY BE OMITTED. This clinical summary was aggregated from multiple sources. Caution should be exercised in using it in the provision of clinical care. This summary normalizes information from multiple sources, and as a consequence, information in this document may materially change the coding, format and clinical context of patient data. In addition, data may be omitted in some cases. CLINICAL DECISIONS SHOULD BE BASED ON THE PRIMARY CLINICAL RECORDS. [facility]. provides no warranty or guarantee of the accuracy or completeness of information in this document.
== END 2025-06-11 11:28 | disposition home or self-care (01) ==
LOC: WC 11:27
PROVIDERS: PCP Emergency Medicine; Visit Provider Physician Assistant
DX: L97.525 Non-pressure chronic ulcer of other part of left foot with muscle involvement without evidence of necrosis (principal)
CPT/HCPCS: 11043; G0463

== ENCOUNTER 2025-06-24 13:32 | Outpatient (OUT) | payer OTHER, SELFPAY ==
--- OUTSIDE RECORDS SUMMARY | 2025-06-24 13:34 | XMS_ITS | Encounter Summary ---
Author Organization [facility] Address [address] [place] [address] Phone Care Team Providers Care Radiotelephone Operator Name Role Phone Marguerite Degroot DO Primary Care Provider Marguerite Degroot DO Primary Care Provider [phone] Encounter Details Date Type Department Care Team (Late st Contact Info) Description 06/27/2023 Scanned Document [facility] [address] [place] [address] Conversion, Onbase Social History Tobacco Use Types [...] on filedocumented in this encounter Care Teams Radiotelephone Operator Relationship Specialty Start Date End Date Marguerite Degroot DO [address] [place] [address] PCP - General 06/27/23 09/14/23 Marguerite Degroot DO [address] [place] [address] PCP - General Family Medicine 09/15/23 documented as of this encounter
--- OUTSIDE RECORDS SUMMARY | 2025-06-24 13:34 | XMS_ITS | Clinical Summary ---
Author Organization [facility] Address [address] [place] [address] Care Team Providers Care Obstetrics And Gynecology Professor Name Role Phone Marguerite Degroot MD Primary Care Provider [phone] Allergies No known active allergies Medications tiotropium-oloda [...] Treatment Not on file Insurance [address] [place] [id number] [employer] Care Teams Obstetrics And Gynecology Professor Relationship Specialty Start Date End Date Marguerite Degroot MD PCP - General Family Medicine 08/31/23
--- OUTSIDE RECORDS SUMMARY | 2025-06-24 13:34 | XMS_ITS | Encounter Summary ---
Author Organization [facility] Address [address] [place] [address] Phone Care Team Providers Care Qualification Engineer Name Role Phone Marguerite Degroot DO Primary Care Provider [phone] Marguerite Degroot DO Primary Care Provider [phone] Encounter Details Date Type Department Care Team (Late st Contact Info) Description 08/16/2023 Scanned Document [facility] [address] [place] [id number] Scanning, Generic Provider Social History Tobacco Use [...] on filedocumented in this encounter Care Teams Qualification Engineer Relationship Specialty Start Date End Date Marguerite Degroot DO [address] [place], [place] [id number] PCP - General 06/27/23 09/14/23 Marguerite Degroot DO [address] [place] [address] PCP - General Family Medicine 09/15/23 documented as of this encounter
--- OUTSIDE RECORDS SUMMARY | 2025-06-24 13:34 | XMS_ITS | Encounter Summary ---
Author Organization [facility] Address [address] [place] [address] Phone Care Team Providers Care Lumber Tallier Name Role Phone Ambika Toscano APRN-CARDIOLOGY TEACHER Primary Care Pro vider Marguerite Degroot DO Primary Care Provider [phone] Marguerite Degroot DO Primary Care Provider [phone] Encounter Details Date Type Department Care Team (Late st Contact Info) Description 06/22/2023 Scanned Document [facility] [address] [place] [address] Conversion, Onbase Social History Tobacco Use Types [...] on filedocumented in this encounter Care Teams Lumber Tallier Relationship Specialty Start Date End Date Ambika Toscano APRN-CNP PCP - General 06/22/23 06/26/23 Marguerite Degroot DO [address] [place] [address] PCP - General 06/27/23 09/14/23 Marguerite Degroot DO [address] [place] [address] PCP - General Family Medicine 09/15/23 documented as of this encounter
--- OUTSIDE RECORDS SUMMARY | 2025-06-24 13:34 | XMS_ITS | Encounter Summary ---
Author Organization [facility] Address [address] [place] [address] Phone Care Team Providers Care Packaging Technician Name Role Phone Marguerite Degroot DO Primary Care Provider [phone] Marguerite Degroot DO Primary Care Provider [phone] Encounter Details Date Type Department Care Team (Late st Contact Info) Description 08/08/2023 Scanned Document [facility] [address] [place] [id number] Scanning, Generic Provider Social History Tobacco Use [...] on filedocumented in this encounter Care Teams Packaging Technician Relationship Specialty Start Date End Date Marguerite Degroot DO [address] [place] [address] PCP - General 06/27/23 09/14/23 Marguerite Degroot DO [address] [place] [place] [address] PCP - General Family Medicine 09/15/23 documented as of this encounter
--- OUTSIDE RECORDS SUMMARY | 2025-06-24 13:34 | XMS_ITS | Clinical Summary ---
Author Organization [facility] Address [address] [place] [address] Phone Care Team Providers Care Sports Reporter Name Role Phone Marguerite Degroot Primary Care Provider [phone] Allergies No known active allergies Social History [...] complete this topic Insurance [employer] Care Teams Sports Reporter Relationship Specialty Start Date End Date Marguerite Degroot DO [address] [place], [place] [id number] PCP - General Family Medicine 09/15/23
--- OUTSIDE RECORDS SUMMARY | 2025-06-24 13:55 | XMS_ITS | CCD ---
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 Name Role Phone Anabell Degroot Primary Care Physician IMAN ROBBINS Attending Unavailable IMAN ROBBINS Admitting Unavailable ARASH, DR ROBIN Michael Primary Care Unavailable ARASH, DR ROBIN Michael Primary Care Unavailable JOSHUGHERTYSHABNAM Admitting Unavailabl e CLOUGHERTYSHABNAM Attending Unavailabl e [...] breath or wheezing, 8.5 gm, Refill(s) 0, [facility], 191, cm, 10/06/21 9:14:00 EST, Height/Length Dosing, 100, kg, 10/06/21 9:14:00 EST, Weight Dosing Start Date: 10/11/21 Status: Ordered apixaban 5 mg oral tablet (16 sources) Factor Xa Inhibitor Start: 10-11-2021 take 1 tablet by mouth twice daily Eliquis 5 mg oral tablet 5 mg = 1 tab(s), Oral, BID, # 60 tab(s), Refills(s) 3, Pharmacy: [facility] 1985, 191, cm, 11/01/21 13:08:00 EST, Height/Length Dosing, 97.2, kg, 11/01/21 13:07:00 EST, Weight Dosing Start Date: 11/01/21 Status: Ordered dexamethasone 6 mg oral tablet (8 sources) Corticosteroid Start: 10-11-2021 take 1 tablet by mouth once daily dexamethasone 6 mg oral tablet 6 mg = 1 tab(s), Oral, Daily, # 4 tab(s), Refills(s) 0, Pharmacy: [facility] 1985, 191, cm, 10/06/21 9:14:00 EST, [...] Consent for Treatmenton Consent for Treatment [id number]#1.00T IFF Normal [facility] Oncology Progress Noteon Oncology Progress Note Patient: [...] He was prescribed Eliquis at discharge from [facility]. He also has a history of some [...] overal grwoing very slowly since 2018 now [id number] no new complaints. / 08/30/23 doing well. [...] Problem list: All Problems Smoker / IMO [id number] / Confirmed Added secondary to documentation in Social History. Resolved: COPD / SNOMED CT 74981029 Resolved: cyst removed Resolved: Hypercholesterolemia / SNOMED CT 22000809 Canceled: Tobacco use / SNOMED CT [id number]-R1O1 -[id number] Added secondary to social history documentation. Histories Past Medical History: Resolved COPD (26352852): Resolved. cyst removed: Resolved. Hypercholesterolemia (66415682): Resolved. Family History: No family history items [...] . Impression and Plan Diagnosis Pulmonary embolus (MZF51-EX I26.99, Working, Medical). COVID-19 with pulmonary comorbidity (MXX79-ST U07.1, Working, Medical). .. Pulmonary Embolus d/t COVID completed 6 mos El (more content not included)... Normal [facility] Outside Progress Noteon 07-25 Outside Progress Note [id number]#1.00 TIFF Normal [facility] Heart TransthoracicOrdere d By: Guillermina Goldstein on 08-18-2023 LV A4C EF 74.7 [facility] Work Phone: [facility] Work Phone: Heart Transthoracicon [address], [address] [place] [address] TRANSTHORACIC ECHOCARDIOGRAM REPORT Patient Name: CHAKA COMPACharles Itzel Physician: [id number] Guillermina Goldstein MD, 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 Robbins for Foot Ulcer/Date Pending, COPD, Hyperlipidemia, 2/6 Systolic Murmur, Tobacco Abuse, Overweight, Femoral Artery Bruit CPT Codes: Echo Complete w Full Doppler-15112 Study Detail: The following Echo studies were [...] included)... Guillermina Santos M D - 08/18/[address], [address], [place] [address] TRANSTHORACIC ECHOCARDIOGRAM REPORT Patient Name: CHAKA DE LEÓN Itzel Physician: [id number] Guillermina Goldstein MD, 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 Robbins for Foot Ulcer/Date Pending, COPD, Hyperlipidemia, 2/6 Systolic Murmur, Tobacco Abuse, Overweight, Femoral Artery Bruit CPT Codes: Echo Complete w Full Doppler-73455 Study Detail: The following Echo studies were [...] mmHg PIEDV: 2.00 m/s PADP: 19.0 mmHg [id number] Guillermina Goldstein MD, [facility] Electronically signed on 08/18/2023 at 2:33:32 PM Final [facility] Work Phone: Vascular US PVR without exer ciseon 08-18-[address], [place] [address] Vascular Lab Report VASC US PVR WITHOUT EXERCISE Patient Name: CHAKA Robbins Physician: [id number] Guillermina Goldstein MD, FAC Study Date: 08/15/2023 Ordering Provider: [id number] GUILLERMINA GOLDSTEIN MRN/PID: [id number] Fellow: Technologist: Heaven Simmons RDCS, T Date of /Age: 3 1970 / 52 years Technologist 2: Gender: M Admission Status: Outpatient Location Performed: [facility] Diagnosis/ICD: Other specified symptoms and signs involving [...] Final Guillermina Santos M D - 08/18/[address], [place] [address] Vascular Lab Report VASC US PVR WITHOUT EXERCISE Patient Name: CHAKA Robbins Physician: Elkin Goldstein MD, FACC Study Date: 08/15/2023 Ordering Provider: Elkin GOLDSTEIN MRN/PID: [id number] Fellow: Technologist: Heaven Simmons RDCS, T Date of /Age: 3 1970 / 52 years Technologist 2: Gender: M Admission Status: Outpatient Location Performed: [facility] Diagnosis/ICD: Other specified symptoms and signs involving [...] Left Brachial Pressure 112 mmHg 101 mmHg [id number] Guillermina Goldstein MD, FACC Final [facility] Work Phone: Vascular US PVR without exer ciseOrdered By: Guillermina Goldstein on 08-18-2023 [facility] Work Phone: NM Heart Perfusion W stress and W radionuclide Robina 08-15-2023 Normal Lexiscan Myov iew cardiac perfusion stress test. No evidence of ischemia or myocardial infarction by perfusion imaging. Normal left ventricular systolic function, ejection fraction 64%. No previous studies are available for comparison. Signed by: Guillermina Goldstein 08/15/2023 6:10 PM Dictation workstation: [id number] Interpreted By: Guillermina Goldstein, and Shalom Correia STUDY: MYOCARDIAL PERFUSION STRESS TEST WITH LEXISCAN Performing facility: [facility], [address] [place] [address] [address], [address] Provider: Guillermina Goldstein MD, [facility] PCP: Dr. Daniel Degroot Supervising provider: Guillermina Goldstein MD, [facility] INDICATION: Abn EKG Pre-operative risk assessment for Toe surgery scheduled at [place] on TBD. HISTORY: Gender: M; Age: 52 y/o ; Height: HT 190.5 cm cm; Weight: WT 92.987 kg kg. Abnormal EKG; High Cholesterol; COPD; Currently smoking. COMPARISON: No comparison. ACCESSION NUMBER(S): [id number] ORDERING CLINICIAN: GUILLERMINA GOLDSTEIN TECHNIQUE: ONE DAY [...] PERFUSION STRESS TEST WITH LEXISCAN Performing facility: [facility], [address], [address], [place] [id number] [facility] Provider: Guillermina Goldstein MD, [facility] PCP: Dr. Daniel Degroot Supervising provider: Guillermina Goldstein MD, [facility] INDICATION: Abn EKG Pre-operative risk assessment for Toe surgery scheduled at [place] on TBD. HISTORY: Gender: M; Age: 52 y/o ; Height: HT 190.5 cm cm; Weight: WT 92.987 kg kg. Abnormal EKG; High Cholesterol; COPD; Currently smoking. COMPARISON: No comparison. ACCESSION NUMBER(S): [id number] ORDERING CLINICIAN: GUILLERMINA GOLDSTEIN TECHNIQUE: ONE DAY [...] Guillermina Goldstein 08/15/2023 6:10 PM Dictation workstation: [id number] [facility] Work Phone: Radiology Study observation (narrative) [facility] Work Phone: NM Heart Perfusion W stress and W radionuclide IVOrdered By: Guillermina Goldstein on 08-15-2023 [facility] Work Phone: NUCLEAR STRESS TESTon 2022 NUCLEAR STRESS TEST Interpreted By: Guillermina Goldstein and Giannuzzi Michael STUDY: MYOCARDIAL PERFUSION STRESS TEST WITH LEXISCAN Performing facility: [facility], [address], [address], [address] Provider: Guillermina Goldstein MD, FACC PCP: Dr. Daniel Degroot Supervising provider: Guillermina Goldstein MD, FACC INDICATION: Abn EKG Pre-operative risk assessment for Toe surgery scheduled at [place] on TBD. HISTORY: Gender: M; Age: 52 y/o ; Height: HT 190.5 cm cm; Weight: WT 92.987 kg kg. Abnormal EKG; High Cholesterol; COPD; Currently smoking. COMPARISON: No comparison. ACCESSION NUMBER(S): [id number] ORDERING CLINICIAN: GUILLERMINA GOLDSTEIN TECHNIQUE: ONE DAY [...] Guillermina Goldstein 08/15/2023 6:10 PM Dictation workstation: [id number] [facility] Comment on above: Order Comment: José Antonio S elected: Y [facility] to schedule and to read TRANSTHORACIC ECHO (TTE) COM PLETEon 08-15-2023 TRANSTHORACIC ECHO (TTE) COMPLETE [address], [address], [place] [address] TRANSTHORACIC ECHOCARDIOGRAM REPORT Patient Name: CHAKA DE LEÓN Reading Physician: [id number] Guillermina Goldstein MD, 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 Robbins for Foot Ulcer/Date Pending, COPD, Hyperlipidemia, 2/6 Systolic Murmur, Tobacco Abuse, Overweight, Femoral Artery Bruit CPT Codes: Echo Complete w Full Doppler-83604 Study Detail: The following Echo studies were [...] mmHg PIEDV: 2.00 m/s PADP: 19.0 mmHg [id number] [facility], [facility] Electronically signed on 08/18/2023 at 2:33:32 PM Final [facility] US PVR WITHOUT EXERCISE on 08-15-2023 [facility] US PVR WITHOUT EXERCISE [address], [address], [place] [address] Vascular Lab Report [facility] US PVR WITHOUT EXERCISE Patient Name: CHAKA DE LEÓN Itzel Physician: [id number] Guillermina Goldstein MD, FACC Study Date: 08/15/2023 Ordering Provider: [id number] GUILLERMINA GOLDSTEIN MRN/PID: [id number] Fellow: Technologist: Heaven Simmons RD, T Date of /Age: 3 1970 / 52 years Technologist 2: Gender: M Admission Status: Outpatient Location Performed: [facility] Diagnosis/ICD: Other specified symptoms and signs involving [...] Left Brachial Pressure 112 mmHg 101 mmHg [id number] Guillermina Goldstein MD, FACC Final Normal [facility] Vascular US PVR without exer ciseon 08-15-2023 Radiology Study observation (narrative) [facility] Work Phone: CT Chest w/ Contraston [...] 300 Contrast amount in ml's: 100 Normal [facility] Consent for Treatmenton 07-23 Consent for Treatment [id number]#1.00T IFF Normal [facility] Outside Progress Noteon 10- Outside Progress Note [id number]#1.0 0TIFF Normal [facility] Insurance Correspondenceon 1 Insurance Correspondence [id number]#1.00 TIFF Normal [facility] Office Visit (Cardiology)on 06-27-2023 Follow-up visit Diagnoses/Problems [...] Lipid Panel; Status:Active - Retrospective Authorization; Requested for:80Axf2460; Overweight with body mass index (BMI) of 25 to 25.9 in adult Healthy Weight Tips; Status:Complete - Retrospective Authorization; Done: 32Iqx4742 Some eating tips that can help you lose weight.; Status:Complete - Retrospective Authorization; Done: 56Dct5140 SocHx: Current smoker You need to stop smoking. Though it is not easy, more than half of all adult smokers have quit. We encourage you to write down all the reasons you should quit smoking and set a quit date for yourself. Ask us how we can help. You may also call 8-526-BIWGEleven JamesNOW for free resources and assistance.; Status:Complete - Retrospective Authorization; Done: 48Wwk3322 Tobacco Use Screening; Status:Complete; Done: 83Nex2992 Patient Instructions Please bring all medicines, vitamins, [...] This is scheduled with Dr. Robbins in [place]. The patient is not a very good [...] echocardiogram to (more content not included)... Normal [employer] Tobacco Screening.on 023 Fall risk assessment a) No falls within the last year [facility] 600 DO Work Phone: Tobacco use status CP a) Yes [facility] 600 DO Work Phone: Tobacco Screening. Yes [facility] [employer] 600 DO Work Phone: Physician Orderon 06-23-2023 Physician Order Scheduled in [facility] on 06/29. Spoke with Monika at [facility] and let her know I got patient scheduled. [id number]#1.00C D:127 Normal [facility] XR FOOT LT MIN 3 VIEWSon XR [...] by: ELHAM GOODE Date: 2022-04-11 16:53 Normal [facility] Vital Signs Date Time Vital Sign Value Performing Clinician Facility 08-30-2023 13:58-0500 Heart rate 79 /min [facility] 08-30-2023 13:58-0500 SaO2% (BldA) [Mass fraction] 97 % [facility] 08-30-2023 13:58-0500 Body temperature 97.88 [degF] [facility] [place] [facility] 08-30-2023 13:57-0500 Diastolic blood pressure 73 mm[Hg] [facility] 08-30-2023 13:57-0500 Mean blood pressure 89 mm[Hg] [facility] 08-30-2023 13:57-0500 Systolic blood pressure 120 mm[Hg] [facility] 08-30-2023 13:56-0500 Respiratory rate 14 /min [facility] [place] [facility] 08-15-2023 11:20-0400 Body height 190.[address] 08-15-2023 11:20-0400 Body mass index (BMI) [Ratio] 25.62 kg/m2 [address] 08-15-2023 11:20-0400 Body weight 92.[address] 08-15-2023 11:20-0400 Diastolic blood pressure 60 mm[Hg] [address] 08-15-2023 11:20-0400 Heart rate 73 /min [address] 08-15-2023 11:20-0400 Systolic blood pressure 102 mm[Hg] [address] 08-15-2023 08:42-0400 Body height 190.[address] 08-15-2023 08:42-0400 Body mass index (BMI) [Ratio] 25.62 kg/m2 [address] 08-15-2023 08:42-0400 Body weight 92.[address] 08-15-2023 08:42-0400 Diastolic blood pressure 72 mm[Hg] [address] 08-15-2023 08:42-0400 Systolic blood pressure 126 mm[Hg] [address] 06-27-2023 11:21-0400 Diastolic blood pressure 54 mm[Hg] Anabell C Mikayla Work Phone: [facility] [employer] 600 DO Work Phone: 06-27-2023 11:21-0400 Systolic blood pressure 98 mm[Hg] Anabell C Mikayla Work Phone: [facility] [employer] 600 DO Work Phone: 06-27-2023 11:18-0400 Body height 190.5 cm Anabell C Mikayla Work Phone: [facility] [employer] 600 DO Work Phone: 06-27-2023 11:18-0400 Body mass index (BMI) [Ratio] 25.62 kg/m2 Anabell C Mikayla Work Phone: [facility] [employer] 600 DO Work Phone: 06-27-2023 11:18-0400 Body surface area Derived from formula 2.22 m2 Anabell C Mikayla Work Phone: [facility] [employer] 600 DO Work Phone: 06-27-2023 11:18-0400 Body weight 92.99 kg Anabell C Mikayla [facility] Phone: [facility] 600 DO Work Phone: 06-27-2023 11:18-0400 Diastolic blood pressure 54 mm[Hg] Anabell Sampson Mikayla Work Phone: [facility] 600 DO Work Phone: 06-27-2023 11:18-0400 Heart rate 64 /min Anabell Sampson Mikayla Work Phone: [facility] 600 DO Work Phone: 06-27-2023 11:18-0400 Systolic blood pressure 100 mm[Hg] Anabell Sampson Mikayla Work Phone: [facility] 600 DO Work Phone: 08-25-2022 10:30-0400 Blood Pressure Location [facility] 08-25-2022 10:30-0400 Body temperature 98.24 [degF] [facility] [place] [facility] 08-25-2022 10:30-0400 BP/Pulse Patient Position [facility] 08-25-2022 10:30-0400 Diastolic blood pressure 67 mm[Hg] [facility] 08-25-2022 10:30-0400 Heart rate 75 /min [facility] 08-25-2022 10:30-0400 Mean blood pressure 83 mm[Hg] [facility] 08-25-2022 10:30-0400 Respiratory rate 19 /min [facility] [place] [facility] 08-25-2022 10:30-0400 SaO2% (BldA) [Mass fraction] 95 % [facility] 08-25-2022 10:30-0400 Systolic blood pressure 113 mm[Hg] [facility] 01-31-2022 12:33-0400 Blood Pressure Location Adwoa Monahan [facility] 01-31-2022 12:33-0400 Body temperature 97.7 [degF] Adwoa Monahan [facility] 01-31-2022 12:33-0400 BP/Pulse Patient Position Adwoa Monahan [facility] 01-31-2022 12:33-0400 Diastolic blood pressure 74 mm[Hg] Adwoa Monahan [facility] 01-31-2022 12:33-0400 Heart rate 91 /min Adwoa Monahan [facility] 01-31-2022 12:33-0400 Mean blood pressure 90 mm[Hg] Adwoa Monahan [facility] 01-31-2022 12:33-0400 Respiratory rate 17 /min Adwoa Monahan [facility] 01-31-2022 12:33-0400 SaO2% (BldA) [Mass fraction] 96 % Adwoa Taniya [facility] 01-31-2022 12:33-0400 Systolic blood pressure 121 mm[Hg] Adwoa Taniya [facility] Encounters Encounter Date Encounter Type Care Provider Facility Start: 09-05-2024 End: 09-12-2024 Pre-admission assessment Quintingaston Vo [facility] Start: 08-31-2023 End: 09-01-2023 ambulatory MEJIA HARDING Not Available Start: 08-30-2023 End: 08-31-2023 ambulatory Quintin Vo Facility:[facility] Start: 08-30-2023 End: 08-30-2023 Patient encounter procedure Quintin Vo [facility] Start: 08-15-2023 End: 08-15-2023 Subsequent hospital visit by physician Randee Beavers Stress Room 1 [facility] Start: 08-15-2023 End: 08-15-2023 Patient encounter status Randee 2 [facility] Work Phone: Start: 08-15-2023 End: 08-15-2023 Subsequent hospital visit by physician Randee Beavers Echo/Vasc Room 2 [facility] Comment on above: Femoral bruit Heart murmur; Pre-operative cardiovascular examination Start: 08-15-2023 End: 08-15-2023 ambulatory GUILLERMINA GOLDSTEIN [facility] Start: 08-15-2023 End: 08-15-2023 Encounter for preprocedural cardiovascular examination ANABELL DEGROOT [facility] Start: 08-10-2023 End: 08-11-2023 ambulatory Quintin Vo Facility:[facility] Start: 08-10-2023 End: 08-10-2023 Patient encounter procedure Quintin Vo [facility] Start: 06-27-2023 Office consultation new/estab patient 60 min Anabell Sampson NarvaezMikayla Work Phone: [facility] 600 DO Work Phone: Start: 06-27-[address] Guillermina Goldstein Facility: Start: 06-22-[address] [facility] Start: 08-25-2022 End: 08-25-2022 Patient encounter procedure Quintin Vo [facility] Start: 08-16-2022 End: 08-16-2022 Patient encounter procedure Adwoa Gonzales Taniya [facility] Start: 06-20-2022 End: 06-21-2022 ambulatory IMAN ROBBINS Facility:[facility] Start: 05-24-2022 End: 05-25-2022 ambulatory IMAN ROBBINS Facility:[facility] Start: 04-26-2022 End: 04-27-[address] ROBIN ANTOINE Facility:[facility] Start: 04-11-2022 End: 04-12-[address] ROBIN ANTOINE Facility:[facility] Start: 01-31-2022 End: 01-31-2022 Patient encounter procedure Adwoa Monahan [facility] Start: 01-28-2022 End: 01-28-2022 Patient encounter procedure Quintin Vo [facility] Start: 01-28-2022 End: 01-29-2022 Pre-admission assessment Cristopher Stevenson [facility] Start: 10-04-[address] ROBIN ANTOINE Facil ity:[facility] Start: 08-02-2021 End: 08-03-2021 ambulatory HAQUE Lizz MORENOCHARAN Facility:[facility] Patient encounter status Anabell Degroot Work Phone: [facility] 600 DO Work Phone: Procedures Date [...] Guillermina Goldstein, Status: Pen, Time: 11:30 AM -[facility] 600 DO Work Phone: Start: 09-19-2023 End: 09-19-2023 Patient encounter procedure 09/19/2023 11:30 AM EST Office Visit [place] [address] [place] [address] Guillermina Goldstein MD [address] [facility] [address] [place] [address] [facility] Start: 08-15-2023 PVR, Provider: BINTA HERRERA [facility] ULTRASOUND 01,[id number], Status: Pen, Time: 9:45 AM PVR, Provider: ARIANNA [facility] ULTRASOUND 01,[id number], Status: Pen, Time: 9:45 AM [facility] 600 DO Work Phone: Start: 08-15-2023 ECHO, Provider: EDISON GONZALEZ [facility] ULTRASOUND 01,[id number], Status: Pen, Time: 8:45 AM ECHO, Provider: ARIANNA [facility] ULTRASOUND 01,[id number], Status: Pen, Time: 8:45 AM [facility] 600 DO Work Phone: Start: 08-15-2023 STRESS NUC, Provider : ARIANNA [facility] NUCLEAR 01,[id number], Status: Pen, Time: 8:00 AM STRESS NUC, Provider: ARIANNA [facility] NUCLEAR 01,[id number], Status: Pen, Time: 8:00 AM [facility] 600 DO Work Phone: Start: 06-23-2023 Influenza vaccination Influenza Vacc ine (#1) [facility] Start: 2020 Zoster Vaccines (1 of 2) Zoste r Vaccines (1 of 2) [facility] Start: 1992 DTaP/Tdap/Td Vaccine s (1 - Tdap) DTaP/Tdap/Td Vaccines (1 - Tdap) [facility] Start: 1989 Hepatitis A Vaccines (1 of 2 - Risk 2-dose series) Hepatitis A Vaccines (1 of 2 - Risk 2-dose series) [facility] Start: 1988 Diabetes mellitus screening Diabetes Screening [facility] Start: 1988 Hepatitis C screening Hepatitis C [facility] Start: 1976 Pneumococcal Vaccine : Pediatrics (0 to 5 Years) and At-Risk Patients (6 to 64 Years) (1 - PCV) Pneumococcal Vaccine: Pediatrics (0 to 5 Years) and At-Risk Patients (6 to 64 Years) (1 - PCV) [facility] Start: 12-24-1971 MMR Vaccines (1 of 1 - Standard series) MMR Vaccines (1 of 1 - Standard series) [facility] Start: 06-25-1971 COVID-19 Vaccine (#1) COVID-19 Vacci ne (#1) [facility] Start: 1970 Hepatitis B Vaccines (1 of 3 - 3-dose series) Hepatitis B Vaccines (1 of 3 - 3-dose series) [facility] Start: 1970 HIV screening HIV Screening [facility] Start: 1970 Lipid panel Lipid Panel [facility] Start: 1970 Screening for malign ant neoplasm of colon [facility] Start: 1970 Yearly Adult Physical Yearly Adult P hysical [facility] End: 08-15-2023 US Heart Transthoracic [facility] Service Area Work Phone: Comment on above: Once for 1 Occurrenc es starting 08/15/2023 until 08/15/2023 End: 08-15-2023 Vascular US PVR without exercise [facility] Service Area Work Phone: Comment on above: Once for 1 Occurrenc es starting 08/15/2023 until 08/15/2023 Payers Date Payer Category Payer Unknown 2021 Unknown [id number] 1970 Unknown [id number] 2.16.84 0.1.303378.3.579.2.593 1970 Unknown [id number] 2.16.84 0.1.505976.3.579.2.593 1970 Unknown [id number] 2.16.84 0.1.755620.3.579.2.593 1970 Unknown [id number] 2.16.84 0.1.968370.3.579.2.593 1970 Unknown [id number] 2.16.84 0.1.486874.3.579.2.593 1970 Unknown [id number] 2.16.84 0.1.872553.3.579.2.593 1970 Unknown [id number] 2.16. 840.1.713305.3.579.2.356 1970 Unknown [id number] 2.16.8 40.1.450921.3.579.2.727 1970 Unknown [id number] 2.16.8 40.1.024134.3.579.2.727 1970 Unknown [id number] 2.16.840. 1.493326.3.579.2.1259 1970 Unknown [id number] 2.16.840 .1.608523.3.579.2.1246 1970 Unknown [id number] 2.16.840 .1.185765.3.579.2.1246 1970 Unknown [id number] 2.16.840 .1.432761.3.579.2.1246 1970 Unknown [id number] 2.16.840 .1.764915.3.579.2.1246 1970 Unknown [id number] 2.16.84 0.1.270862.3.579.2.1246 1970 Unknown [id number] 2.16.8 40.1.751749.3.579.2.1246 1970 Unknown [id number] 2.16.8 40.1.129547.3.579.2.1246 1959 Unknown [id number] Social History Date Type Detail Facility Tobacco Cigarettes [facility] Comment on above: 1 ppd Sex Assigned At Male [facility] Tobacco smoking status No Smokin g Status Entered [facility] Daily caffeine consumption Daily caffeine consumption -[facility] [address] DO Work Phone: Comment on above: 1-2 PACKS DAILY; [facility] Work Phone: Start: 1970 Sex Assigned At Not on file [facility] Work Phone: Start: 08-05-2023 End: 08-15-2023 Exposure to SARS-CoV-2 (event) Not sure [facility] Clinical Notes 11-01-2021 to 11-28-2023 RadiologyRadiologyRadiologyRadiology Note Date & Type Note Facility 11-28-2023 Evaluation + Plan note Future Scheduled TestsCT Chest, Low Dose Screening 11/28/23 [facility] 08-26-2022 Hospital Discharg e instructions Follow Up Care 08/26/2022 10:06:59 With:Quintin Vo Address: [address] [address] [phone] [employer] (1) When: Unknown Comments:f/u in [address] chest low dose screening prior to f/u in 1 year. If he talks to Dr. Degroot, she can order ct screening and do f/u and he will not need to see me. [facility] 08-15-2022 Hospital Discharg e instructions Follow Up Care 08/15/2022 13:08:07 With:Quintin Vo Address: [address] [address]- [phone] [employer] Business (1) When: Unknown Comments:f/u with me or opal after ct ches with contrast in a year. [facility] 11-01-2021 Hospital Discharg e instructions Follow Up Care 11/01/2021 13:28:42 With:Quintin Vo Address: [address] [place] [address] [phone] [employer] Business (1) When: Unknown Comments:finish Sowmya in JuneCT chest w/ contrast in 6mofollow-up with Dr. Dobbins in 6mo after scan [facility] Evaluation + Plan note Future Appointments Appointment Date:01/31/2022 12:30:00 PM Scheduled Provider:Adwoa Delgado Location:[facility].ONCOLOGY Appointment Type:ONC Office Visit 15 (FT) [facility] Evaluation + Plan note Future Appointments Appointment Date:08/10/2022 12:30:00 PM Scheduled Provider:Quintin Vo DO Location:[facility].ONCOLOGY Appointment Type:ONC Office Visit 15 (FT) Future Scheduled TestsCT Chest w/ Contrast 08/02/22 [facility] Evaluation + Plan note Future Appointments Appointment Date:08/25/2022 10:15:00 AM Scheduled Provider:Quintin Vo DO Location:FT.ONCOLOGY Appointment Type:ONC Office Visit 30 (FT) [facility] Evaluation + Plan note Future Scheduled TestsCT Chest w/ Contrast 08/09/23 [facility] Evaluation + Plan note Future Appointments Appointment Date:08/30/2023 02:00:00 PM Scheduled Provider:Quintin Vo DO Location:[facility].ONCOLOGY Appointment Type:ONC Office Visit 15 (FT) [facility] Evaluation + Plan note Future Scheduled TestsCT Chest, Low Dose Screening 11/28/23 [facility] Evaluation note Diagnosis Femoral bruit documented in this encounter [facility] Work Phone: Evaluation note* Diagnosis Heart murmur Undiagnosed cardiac murmurs Pre-operative cardiovascular examination documented in this encounter [facility] Work Phone: Evaluation note* Diagnosis Femoral bruit documented in this encounter [facility] Work Phone: Evaluation note* Diagnosis Heart murmur Undiagnosed cardiac murmurs Pre-operative cardiovascular examination documented in this encounter [facility] Work Phone: Hospital course Narrative No data available for this section [facility] No data available for this section [facility] No data available for this section [facility] Summary Purpose Family History Unknown Family Member [...] This is scheduled with Dr. Robbins in [place]. The patient is not a very good [...] cardiovascular examination Procedures Transthoracic Echo (TTE) Complete [place] ECHO TRANSTHORC R-T 2D W/WO M-MODE REC F-UP/LMTD [place] DOP ECHOCARD COLOR FLOW VELOCITY MAPPING [place] DOP ECHOCARD PULSE WAVE W/SPECTRAL F-UP/LMTD STD Guillermina Goldstein MD [address] [facility] [address], [address] [address] Referral ID Status Reason Start Date Expiration Date Visits Requested Visits Authorized [id number] Authorized Perform Procedure 07/17/2023 01/13/2024 1 1 Specialty Diagnoses / Procedures Referred By Oneil enrique Referred To Contact Cardiology Diagnoses Femoral bruit Procedures Vascular US PVR without exercise Guillermina Goldstein MD [address], [address] [place] [address] Referral ID Status Reason Start Date Expiration Date Visits Requested Visits Authorized [id number] Authorized Perform Procedure 07/17/2023 01/13/2024 1 1 Additional Source Comments (unrecognized sect ion and content) No Status Records FoundNo Status Records FoundNo Status Records FoundNo Status Records FoundNo Status Records FoundNo Status Records Found INFORMATION SOURCE (unrecogn ized section and content) DATE CREATED AUTHOR 07/19/2022 [facility] DATE CREATED AUTHOR AUTHOR'S ORGANIZ ATION 06/27/2023 [facility] DATE CREATED AUTHOR AUTHOR'S ORGANIZ ATION 06/28/2023 [employer] DATE CREATED AUTHOR AUTHOR'S ORGANIZ ATION 09/01/2023 [facility] DATE CREATED AUTHOR AUTHOR'S ORGANIZ ATION 09/04/2023 [facility] EPIC DATE CREATED AUTHOR AUTHOR'S ORGANIZ ATION 06/04/2024 [facility] Patient Care team informatio n (unrecognized section and content) Personnel Name: Anabell Degroot DO Address: Address: [address] [place] [address] Liza tyler , [address] [employer] Operator Relationship Specialty Start Date End Date Anabell Degroot DO [address] [place] [address] PCP - General 06/27/23 [employer] Relationship Specialty Start Date End Date Anabell Degroot DO [address] [place] [address] PCP - General 06/27/23 [employer]ing Operator Relationship Specialty Start Date End Date Anabell Degroot DO PCP - General 06/27/23 [employer] And [employer]ing Operator Relationship Specialty Start Date End Date Anabell Degroot DO PCP - General 06/27/23 Reason for Visit (unrecogniz ed section and content) Specialty Diagnoses / Procedures Referred By Oneil t Referred To Contact Cardiology Diagnoses Femoral bruit Procedures Vascular US PVR without exercise Guillermina Goldstein MD [address] [facility] [address], [address] [address] Referral ID Status Reason Start Date Expiration Date Visits Requested Visits Authorized [id number] Authorized Perform Procedure 07/17/2023 01/13/2024 1 1 Specialty Diagnoses / Procedures Referred By Oneil t Referred To Contact Radiology Diagnoses Abnormal electrocardiogram (ECG) (EKG) Encounter for preprocedural cardiovascular examination Procedures Nuclear Stress Test CHG MYOCARDIAL SPECT MULTIPLE STUDIES CHG MYOCARDIAL SPECT SINGLE STUDY AT REST OR STRESS [place] CV STRS TST XERS&/OR RX CONT ECG W/O I&R [place] CV STRS TST XERS&/OR RX CONT ECG I&R ONLY [place] CV STRS TST XERS&/OR RX CONT ECG TRCG ONLY [place] CV STRS TST XERS&/OR RX CONT ECG W/SI&R Guillermina Goldstein MD [address] [facility] [address], [address] [address] Referral ID Status Reason Start Date Expiration Date V isits Requested Visits Authorized [id number] Authorized 07/06/2023 01/02/2024 3 3 Specialty Diagnoses / Procedures Referred By Oneil t Referred To Contact Cardiology Diagnoses Heart murmur Pre-operative cardiovascular examination Procedures Transthoracic Echo (TTE) Complete [place] ECHO TRANSTHORC R-T 2D W/WO M-MODE REC F-UP/LMTD [place] DOP ECHOCARD COLOR FLOW VELOCITY MAPPING [place] DOP ECHOCARD PULSE WAVE W/SPECTRAL F-UP/LMTD STD Guillermina Goldstein MD [address], [address] [address] Referral ID Status Reason Start Date Expiration Date Visits Requested Visits Authorized [id number] Authorized Perform Procedure 07/17/2023 01/13/2024 1 1 [...] BE BASED ON THE PRIMARY CLINICAL RECORDS. [facility] [employer] [facility]. provides no warranty or guarantee of the accuracy or completeness of information in this document.
== END 2025-06-24 13:33 | disposition home or self-care (01) ==
LOC: WC 13:32
PROVIDERS: PCP Emergency Medicine; Visit Provider Physician Assistant
DX: L97.525 Non-pressure chronic ulcer of other part of left foot with muscle involvement without evidence of necrosis (principal)
CPT/HCPCS: 11043

== ENCOUNTER 2025-07-08 11:35 | Outpatient (OUT) | payer OTHER, SELFPAY ==
--- OUTSIDE RECORDS SUMMARY | 2025-07-08 12:31 | XMS_ITS | CCD ---
Author Organization [facility] Care Team Providers Care Mastic Floor Layer Name Role Phone Anabell Degroot Primary Care Physician [phone] IMAN ROBBINS Attending Unavailable IMAN ROBBINS Admitting [...] breath or wheezing, 8.5 gm, Refill(s) 0, [facility], 191, cm, 10/06/21 9:14:00 EST, Height/Length Dosing, 100, kg, 10/06/21 9:14:00 EST, Weight Dosing Start Date: 10/11/21 Status: Ordered apixaban 5 mg oral tablet (16 sources) Factor Xa Inhibitor Start: 10-11-2021 take 1 tablet by mouth twice daily Eliquis 5 mg oral tablet 5 mg = 1 tab(s), Oral, BID, # 60 tab(s), Refills(s) 3, Pharmacy: [facility], 191, cm, 11/01/21 13:08:00 EST, Height/Length Dosing, 97.2, kg, 11/01/21 13:07:00 EST, Weight Dosing Start Date: 11/01/21 Status: Ordered dexamethasone 6 mg oral tablet (8 sources) Corticosteroid Start: 10-11-2021 take 1 tablet by mouth once daily dexamethasone 6 mg oral tablet 6 mg = 1 tab(s), Oral, Daily, # 4 tab(s), Refills(s) 0, Pharmacy: [facility], 191, cm, 10/06/21 9:14:00 EST, [...] Consent for Treatmenton Consent for Treatment [id number]#1.00T IFF Normal [facility] Oncology Progress Noteon Oncology Progress Note Patient: [...] He was prescribed Eliquis at [facility]. He also has a history of some [...] overal grwoing very slowly since 2018 now [id number] no new complaints. / 08/30/23 doing well. [...] Problem list: All Problems Smoker / IMO [id number] / Confirmed Added secondary to documentation in Social History. Resolved: COPD / SNOMED CT 46175284 Resolved: cyst removed Resolved: Hypercholesterolemia / SNOMED CT 92414057 Canceled: Tobacco use / SNOMED CT [id number] -[id number] Added secondary to social history documentation. Histories Past Medical History: Resolved COPD (57054491): Resolved. cyst removed: Resolved. Hypercholesterolemia (00572289): Resolved. Family History: No family history items [...] . Impression and Plan Diagnosis Pulmonary embolus (GIV81-EV I26.99, Working, Medical). COVID-19 with pulmonary comorbidity (WGG24-YN U07.1, Working, Medical). .. Pulmonary Embolus d/t COVID completed 6 mos El (more content not included)... Normal [facility] Outside Progress Noteon 07-25 Outside Progress Note [id number]#1.00 TIFF Normal [facility] Heart TransthoracicOrdere d By: Guillermina Goldstein on 08-18-2023 LV A4C EF 74.7 [facility] Work Phone: [facility] Work Phone: Heart Transthoracicon [address], [address] [place] [address] TRANSTHORACIC ECHOCARDIOGRAM REPORT Patient Name: CHAKA COMPACharles Itzel Physician: [id number] Guillermina Goldstein MD, [facility] Study Date: 08/15/2023 Ordering Provider: [id number] GUILLERMINA GOLDSTEIN MRN/PID: [id number] Fellow: Nurse: Date of /Age: 3 1970 / 52 years Slate Splitting Supervisor: Heaven Simmons RDCS Seferino Gender: M Additional Staff: Height: 190.50 cm Admit Date: Weight: 92.99 kg Admission Status: BSA: 2.22 m2 Department Location: [facility] Blood Pressure: 126 /72 mmHg Study Type: TRANSTHORACIC ECHO (TTE) COMPLETE Diagnosis/ICD: Cardiac murmur, unspecified-R01.1; Encounter for preprocedural cardiovascular examination-Z01.810 Indication: Abnormal EKG, POC-Dr. Robbins for Foot Ulcer/Date Pending, COPD, Hyperlipidemia, 2/6 Systolic Murmur, Tobacco Abuse, Overweight, Femoral Artery Bruit CPT Codes: Echo Complete w Full Doppler-99980 Study Detail: The following Echo studies were [...] included)... Guillermina Santos M D - 08/18/[address], [address], [place] [address] TRANSTHORACIC ECHOCARDIOGRAM REPORT Patient Name: CHAKA DE LEÓN Itzel Physician: [id number] Guillermina Goldstein MD, [facility] Study Date: 08/15/2023 Ordering Provider: [id number] GUILLERMINA GOLDSTEIN MRN/PID: [id number] Fellow: Nurse: Date of /Age: 3 1970 / 52 years [employer]ate Spl[employer] Supervisor: Heaven Simmons RDCS, RVT Gender: M Additional Staff: Height: 190.50 cm Admit Date: Weight: 92.99 kg Admission Status: BSA: 2.22 m2 Department Location: [facility] Blood Pressure: 126 /72 mmHg Study Type: TRANSTHORACIC ECHO (TTE) COMPLETE Diagnosis/ICD: Cardiac murmur, unspecified-R01.1; Encounter for preprocedural cardiovascular examination-Z01.810 Indication: Abnormal EKG, POC-Dr. Robbins for Foot Ulcer/Date Pending, COPD, Hyperlipidemia, 2/6 Systolic Murmur, Tobacco Abuse, Overweight, Femoral Artery Bruit CPT Codes: Echo Complete w Full Doppler-64979 Study Detail: The following Echo studies were [...] mmHg PIEDV: 2.00 m/s PADP: 19.0 mmHg [id number] Guillermina Goldstein MD, [facility] Electronically signed on 08/18/2023 at 2:33:32 PM Final [facility] Work Phone: Vascular US PVR without exer ciseon 08-18-[address], [place] [address] Vascular Lab Report VASC US PVR WITHOUT EXERCISE Patient Name: CHAKA Robbins Physician: [id number] Guillermina Goldstein MD, FAC Study Date: 08/15/2023 Ordering Provider: [id number] GUILLERMINA GOLDSTEIN MRN/PID: [id number] Fellow: Technologist: Heaven Simmons RDCS, T Date of /Age: 3 1970 / 52 years Technologist 2: Gender: M Admission Status: Outpatient Location Performed: [facility] Diagnosis/ICD: Other specified symptoms and signs [...] Final Guillermina Santos M D - 08/18/[address], [place] [address] Vascular Lab Report VASC US PVR WITHOUT EXERCISE Patient Name: CHAKA Robbins Physician: Elkin Goldstein MD, FACC Study Date: 08/15/2023 Ordering Provider: Elkin GOLDSTEIN MRN/PID: [id number] Fellow: Technologist: Heaven Simmons RDCS, T Date of /Age: 3 1970 / 52 years Technologist 2: Gender: M Admission Status: Outpatient Location Performed: [facility] Diagnosis/ICD: Other specified symptoms and signs [...] Left Brachial Pressure 112 mmHg 101 mmHg [id number] Guillermina Goldstein MD, FACC Final [facility] Work Phone: Vascular US PVR without exer ciseOrdered By: Guillermina Goldstein on 08-18-2023 [facility] Work Phone: NM Heart Perfusion W stress and W radionuclide Robina 08-15-2023 Normal Lexiscan Myov iew cardiac perfusion stress test. No evidence of ischemia or myocardial infarction by perfusion imaging. Normal left ventricular systolic function, ejection fraction 64%. No previous studies are available for comparison. Signed by: Guillermina Goldstein 08/15/2023 6:10 PM Dictation workstation: [id number] Interpreted By: Guillermina Goldstein, and Shalom Correia STUDY: MYOCARDIAL PERFUSION STRESS TEST WITH LEXISCAN Performing facility: [facility], [address] [place] [address] [address], [address] Provider: Guillermina Goldstein MD, [facility] PCP: Dr. Daniel Degroot Supervising provider: Guillermina Goldstein MD, [facility] INDICATION: Abn EKG Pre-operative risk assessment for Toe surgery scheduled at [place] on TBD. HISTORY: Gender: M; Age: 52 y/o ; Height: HT 190.5 cm cm; Weight: WT 92.987 kg kg. Abnormal EKG; High Cholesterol; COPD; Currently smoking. COMPARISON: No comparison. ACCESSION NUMBER(S): [id number] ORDERING CLINICIAN: GUILLERMINA GOLDSTEIN TECHNIQUE: ONE DAY [...] PERFUSION STRESS TEST WITH LEXISCAN Performing facility: [facility], [address], [address], [place] [id number] [facility] Provider: Guillermina Goldstein MD, [facility] PCP: Dr. Daniel Degroot Supervising provider: Guillermina Goldstein MD, [facility] INDICATION: Abn EKG Pre-operative risk assessment for Toe surgery scheduled at [place] on TBD. HISTORY: Gender: M; Age: 52 y/o ; Height: HT 190.5 cm cm; Weight: WT 92.987 kg kg. Abnormal EKG; High Cholesterol; COPD; Currently smoking. COMPARISON: No comparison. ACCESSION NUMBER(S): [id number] ORDERING CLINICIAN: GUILLERMINA GOLDSTEIN TECHNIQUE: ONE DAY [...] Guillermina Goldstein 08/15/2023 6:10 PM Dictation workstation: [id number] [facility] Work Phone: Radiology Study observation (narrative) [facility] Work Phone: NM Heart Perfusion W stress and W radionuclide IVOrdered By: Guillermina Goldstein on 08-15-2023 [facility] Work Phone: NUCLEAR STRESS TESTon 2022 NUCLEAR STRESS TEST Interpreted By: Guillermina Goldstein and Giannuzzi Michael STUDY: MYOCARDIAL PERFUSION STRESS TEST WITH LEXISCAN Performing facility: [facility], [address], [address], [address] Provider: Guillermina Goldstein MD, FACC PCP: Dr. Daniel Degroot Supervising provider: Guillermina Goldstein MD, FACC INDICATION: Abn EKG Pre-operative risk assessment for Toe surgery scheduled at [place] on TBD. HISTORY: Gender: M; Age: 52 y/o ; Height: HT 190.5 cm cm; Weight: WT 92.987 kg kg. Abnormal EKG; High Cholesterol; COPD; Currently smoking. COMPARISON: No comparison. ACCESSION NUMBER(S): [id number] ORDERING CLINICIAN: GUILLERMINA GOLDSTEIN TECHNIQUE: ONE DAY [...] Guillermina Goldstein 08/15/2023 6:10 PM Dictation workstation: [id number] [facility] Comment on above: Order Comment: José Antonio S elected: Y [facility] to schedule and to read TRANSTHORACIC ECHO (TTE) COM PLETEon 08-15-2023 TRANSTHORACIC ECHO (TTE) COMPLETE [address], [address], [place] [address] TRANSTHORACIC ECHOCARDIOGRAM REPORT Patient Name: CHAKA DE LEÓN Reading Physician: [id number] Guillermina Goldstein MD, [facility] Study Date: 08/15/2023 Ordering Provider: [id number] GUILLERMINA GOLDSTEIN MRN/PID: [id number] Fellow: Nurse: Date of /Age: 3 1970 / 52 years Slate Splitting Supervisor: Heaven Simmons RDCS, T Gender: M Additional Staff: Height: 190.50 cm Admit Date: Weight: 92.99 kg Admission Status: BSA: 2.22 m2 Department Location: [facility] Blood Pressure: 126 /72 mmHg Study Type: TRANSTHORACIC ECHO (TTE) COMPLETE Diagnosis/ICD: Cardiac murmur, unspecified-R01.1; Encounter for preprocedural cardiovascular examination-Z01.810 Indication: Abnormal EKG, POC-Dr. Robbins for Foot Ulcer/Date Pending, COPD, Hyperlipidemia, 2/6 Systolic Murmur, Tobacco Abuse, Overweight, Femoral Artery Bruit CPT Codes: Echo Complete w Full Doppler-11187 Study Detail: The following Echo studies were [...] mmHg PIEDV: 2.00 m/s PADP: 19.0 mmHg [id number] Guillermina Goldstein MD, [facility] Electronically signed on 08/18/2023 at 2:33:32 PM Final [facility] US PVR WITHOUT EXERCISE on 08-15-2023 [facility] US PVR WITHOUT EXERCISE [address], [address], [place] [address] Vascular Lab Report [facility] US PVR WITHOUT EXERCISE Patient Name: CHAKA DE LEÓN Itzel Physician: [id number] Guillermina Goldstein MD, FACC Study Date: 08/15/2023 Ordering Provider: [id number] GUILLERMINA GOLDSTEIN MRN/PID: [id number] Fellow: Technologist: Heaven Simmons RD, T Date of /Age: 3 1970 / 52 years Technologist 2: Gender: M Admission Status: Outpatient Location Performed: [facility] Diagnosis/ICD: Other specified symptoms and signs [...] Left Brachial Pressure 112 mmHg 101 mmHg [id number] Guillermina Goldstein MD, FACC Final Normal [facility] Vascular US PVR without exer ciseon 08-15-2023 Radiology Study observation (narrative) [facility] Work Phone: CT Chest w/ Contraston [...] 300 Contrast amount in ml's: 100 Normal [facility] Consent for Treatmenton 07-23 Consent for Treatment [id number]#1.00T IFF Normal [facility] Outside Progress Noteon 10- Outside Progress Note [id number]#1.0 0TIFF Normal [facility] Insurance Correspondenceon 1 Insurance Correspondence [id number]#1.00 TIFF Normal [facility] Office Visit (Cardiology)on 06-27-2023 Follow-up visit Diagnoses/Problems [...] Lipid Panel; Status:Active - Retrospective Authorization; Requested for:[id number]; Overweight with body mass index (BMI) of 25 to 25.9 in adult Healthy Weight Tips; Status:Complete - Retrospective Authorization; Done: [id number] Some eating tips that can help you lose weight.; Status:Complete - Retrospective Authorization; Done: [id number] SocHx: Current smoker You need to stop smoking. Though it is not easy, more than half of all adult smokers have quit. We encourage you to write down all the reasons you should quit smoking and set a quit date for yourself. Ask us how we can help. You may also call 8-531-YVUMIntroMapsNOW for free resources and assistance.; Status:Complete - Retrospective Authorization; Done: [id number] Tobacco Use Screening; Status:Complete; Done: [id number] Patient Instructions Please bring all medicines, vitamins, [...] This is scheduled with Dr. Robbins in [place]. The patient is not a very good [...] echocardiogram to (more content not included)... Normal [employer] Tobacco Screening.on 023 Fall risk assessment a) No falls within the last year [facility] 600 DO Work Phone: Tobacco use status CP a) Yes [facility] 600 DO Work Phone: Tobacco Screening. Yes [facility] [employer] 600 DO Work Phone: Physician Orderon 06-23-2023 Physician Order Scheduled in [facility] on 06/29. Spoke with Monika at [facility] and let her know I got patient scheduled. [id number]#1.00C D:127 Normal [facility] XR FOOT LT MIN 3 VIEWSon XR [...] Date: 2022-04-11 16:53 Normal [facility] Vital Signs Date Time Vital Sign Value Performing Clinician Facility 08-30-2023 13:58-0500 Heart rate 79 /min [facility] 08-30-2023 13:58-0500 SaO2% (BldA) [Mass fraction] 97 % [facility] 08-30-2023 13:58-0500 Body temperature 97.88 [degF] [facility] 08-30-2023 13:57-0500 Diastolic blood pressure 73 mm[Hg] [facility] 08-30-2023 13:57-0500 Mean blood pressure 89 mm[Hg] [facility] 08-30-2023 13:57-0500 Systolic blood pressure 120 mm[Hg] [facility] 08-30-2023 13:56-0500 Respiratory rate 14 /min [facility] 08-15-2023 11:20-0400 Body height 190.[address] 08-15-2023 11:20-0400 Body mass index (BMI) [Ratio] 25.62 kg/m2 [address] 08-15-2023 11:20-0400 Body weight 92.[address] 08-15-2023 11:20-0400 Diastolic blood pressure 60 mm[Hg] [address] 08-15-2023 11:20-0400 Heart rate 73 /min [address] 08-15-2023 11:20-0400 Systolic blood pressure 102 mm[Hg] [address] 08-15-2023 08:42-0400 Body height 190.[address] 08-15-2023 08:42-0400 Body mass index (BMI) [Ratio] 25.62 kg/m2 [address] 08-15-2023 08:42-0400 Body weight 92.[address] 08-15-2023 08:42-0400 Diastolic blood pressure 72 mm[Hg] [address] 08-15-2023 08:42-0400 Systolic blood pressure 126 mm[Hg] [address] 06-27-2023 11:21-0400 Diastolic blood pressure 54 mm[Hg] Anabell C Mikayla Work Phone: [facility] [employer] 600 DO Work Phone: 06-27-2023 11:21-0400 Systolic blood pressure 98 mm[Hg] Anabell C Mikayla Work Phone: [facility] [employer] 600 DO Work Phone: 06-27-2023 11:18-0400 Body height 190.5 cm Anabell C Mikayla Work Phone: [facility] [employer] 600 DO Work Phone: 06-27-2023 11:18-0400 Body mass index (BMI) [Ratio] 25.62 kg/m2 Anabell C Mikayla Work Phone: [facility] [employer] 600 DO Work Phone: 06-27-2023 11:18-0400 Body surface area Derived from formula 2.22 m2 Anabell C Mikayla Work Phone: [facility] [employer] 600 DO Work Phone: 06-27-2023 11:18-0400 Body weight 92.99 kg Anabell C Mikayla [facility] Phone: [facility] 600 DO Work Phone: 06-27-2023 11:18-0400 Diastolic blood pressure 54 mm[Hg] Anabell Sampson Mikayla Work Phone: [facility] 600 DO Work Phone: 06-27-2023 11:18-0400 Heart rate 64 /min Anabell Sampson Mikayla Work Phone: [facility] 600 DO Work Phone: 06-27-2023 11:18-0400 Systolic blood pressure 100 mm[Hg] Anabell Sampson Mikayla [facility] 600 DO Work Phone: 08-25-2022 10:30-0400 Blood Pressure Location [facility] 08-25-2022 10:30-0400 Body temperature 98.24 [degF] [facility] 08-25-2022 10:30-0400 BP/Pulse Patient Position [facility] 08-25-2022 10:30-0400 Diastolic blood pressure 67 mm[Hg] [facility] 08-25-2022 10:30-0400 Heart rate 75 /min [facility] 08-25-2022 10:30-0400 Mean blood pressure 83 mm[Hg] [facility] 08-25-2022 10:30-0400 Respiratory rate 19 /min [facility] 08-25-2022 10:30-0400 SaO2% (BldA) [Mass fraction] 95 % [facility] 08-25-2022 10:30-0400 Systolic blood pressure 113 mm[Hg] [facility] 01-31-2022 12:33-0400 Blood Pressure Location Adwoa Monahan [facility] 01-31-2022 12:33-0400 Body temperature 97.7 [degF] Adwoa Monahan [facility] 01-31-2022 12:33-0400 BP/Pulse Patient Position Adwoa Monahan [facility] 01-31-2022 12:33-0400 Diastolic blood pressure 74 mm[Hg] Adwoa Monahan [facility] 01-31-2022 12:33-0400 Heart rate 91 /min Adwoa Mnoahan [facility] 01-31-2022 12:33-0400 Mean blood pressure 90 mm[Hg] Adwoa Monahan [facility] 01-31-2022 12:33-0400 Respiratory rate 17 /min Adwoa Monahan [facility] 01-31-2022 12:33-0400 SaO2% (BldA) [Mass fraction] 96 % Adwoa Taniya [facility] 01-31-2022 12:33-0400 Systolic blood pressure 121 mm[Hg] Adwoa Taniya [facility] Encounters Encounter Date Encounter Type Care Provider Facility Start: 09-05-2024 End: 09-12-2024 Pre-admission assessment Quintingaston Vo [facility] Start: 08-31-2023 End: 09-01-2023 ambulatory MEJIA HARDING Not Available Start: 08-30-2023 End: 08-31-2023 ambulatory Quintin Vo Facility:[facility] Start: 08-30-2023 End: 08-30-2023 Patient encounter procedure Quintin Vo [facility] Start: 08-15-2023 End: 08-15-2023 Subsequent hospital visit by physician Randee Beavers Stress Room 1 [facility] Start: 08-15-2023 End: 08-15-2023 Patient encounter status Randee 2 [facility] Work Phone: Start: 08-15-2023 End: 08-15-2023 Subsequent hospital visit by physician Randee Beavers Echo/Vasc Room 2 [facility] Comment on above: Femoral bruit Heart murmur; Pre-operative cardiovascular examination Start: 08-15-2023 End: 08-15-2023 ambulatory GUILLERMINA GOLDSTEIN [facility] Start: 08-15-2023 End: 08-15-2023 Encounter for preprocedural cardiovascular examination ANABELL DEGROOT [facility] Start: 08-10-2023 End: 08-11-2023 ambulatory Quintin Vo Facility:[facility] Start: 08-10-2023 End: 08-10-2023 Patient encounter procedure Quintin Vo [facility] Start: 06-27-2023 Office consultation new/estab patient 60 min Anabell Sampson NarvaezMikayla Work Phone: [facility] 600 DO Work Phone: Start: 06-27-[address] Guillermina Goldstein Facility: Start: 06-22-[address] [facility] Start: 08-25-2022 End: 08-25-2022 Patient encounter procedure Quintin Vo [facility] Start: 08-16-2022 End: 08-16-2022 Patient encounter procedure Adwoa Gonzales Taniya [facility] Start: 06-20-2022 End: 06-21-2022 ambulatory IMAN ROBBINS Facility:[facility] Start: 05-24-2022 End: 05-25-2022 ambulatory IMAN ROBBINS Facility:[facility] Start: 04-26-2022 End: 04-27-[address] ROBIN ANTOINE Facility:[facility] Start: 04-11-2022 End: 04-12-[address] ROBIN ANTOINE Facility:[facility] Start: 01-31-2022 End: 01-31-2022 Patient encounter procedure Adwoa Monahan [facility] Start: 01-28-2022 End: 01-28-2022 Patient encounter procedure Quintin Vo [facility] Start: 01-28-2022 End: 01-29-2022 Pre-admission assessment Cristopher Stevenson [facility] Start: 10-04-[address] ROBIN ANTOINE Facil ity:[facility] Start: 08-02-2021 End: 08-03-2021 ambulatory HAQUE Lizz MORENOCHARAN Facility:[facility] Patient encounter status Anabell Degroot Work Phone: [facility] 600 DO Work Phone: Procedures Date Procedure [...] Guillermina Goldstein, Status: Pen, Time: 11:30 AM -[facility] 600 DO Work Phone: Start: 09-19-2023 End: 09-19-2023 Patient encounter procedure 09/19/2023 11:30 AM EST Office Visit [place] [address] [place] [address] Guillermina Goldstein MD [address] [facility] [address] [place] [address] [facility] Start: 08-15-2023 PVR, Provider: BINTA HERRERA [facility] ULTRASOUND 01,[id number], Status: Pen, Time: 9:45 AM PVR, Provider: ARIANNA [facility] ULTRASOUND 01,[id number], Status: Pen, Time: 9:45 AM [facility] 600 DO Work Phone: Start: 08-15-2023 ECHO, Provider: EDISON GONZALEZ [facility] ULTRASOUND 01,[id number], Status: Pen, Time: 8:45 AM ECHO, Provider: ARIANNA [facility] ULTRASOUND 01,[id number], Status: Pen, Time: 8:45 AM [facility] 600 DO Work Phone: Start: 08-15-2023 STRESS NUC, Provider : ARIANNA [facility] NUCLEAR 01,[id number], Status: Pen, Time: 8:00 AM STRESS NUC, Provider: ARIANNA [facility] NUCLEAR 01,[id number], Status: Pen, Time: 8:00 AM [facility] 600 DO Work Phone: Start: 06-23-2023 Influenza vaccination Influenza Vacc ine (#1) [facility] Start: 2020 Zoster Vaccines (1 of 2) Zoste r Vaccines (1 of 2) [facility] Start: 1992 DTaP/Tdap/Td Vaccine s (1 - Tdap) DTaP/Tdap/Td Vaccines (1 - Tdap) [facility] Start: 1989 Hepatitis A Vaccines (1 of 2 - Risk 2-dose series) Hepatitis A Vaccines (1 of 2 - Risk 2-dose series) [facility] Start: 1988 Diabetes mellitus screening Diabetes Screening [facility] Start: 1988 Hepatitis C screening Hepatitis C [facility] Start: 1976 Pneumococcal Vaccine : Pediatrics (0 to 5 Years) and At-Risk Patients (6 to 64 Years) (1 - PCV) Pneumococcal Vaccine: Pediatrics (0 to 5 Years) and At-Risk Patients (6 to 64 Years) (1 - PCV) [facility] Start: 12-24-1971 MMR Vaccines (1 of 1 - Standard series) MMR Vaccines (1 of 1 - Standard series) [facility] Start: 06-25-1971 COVID-19 Vaccine (#1) COVID-19 Vacci ne (#1) [facility] Start: 1970 Hepatitis B Vaccines (1 of 3 - 3-dose series) Hepatitis B Vaccines (1 of 3 - 3-dose series) [facility] Start: 1970 HIV screening HIV Screening [facility] Start: 1970 Lipid panel Lipid Panel [facility] Start: 1970 Screening for malign ant neoplasm of colon [facility] Start: 1970 Yearly Adult Physical Yearly Adult P hysical [facility] End: 08-15-2023 US Heart Transthoracic [facility] Service Area Work Phone: Comment on above: Once for 1 Occurrenc es starting 08/15/2023 until 08/15/2023 End: 08-15-2023 Vascular US PVR without exercise [facility] Service Area Work Phone: Comment on above: Once for 1 Occurrenc es starting 08/15/2023 until 08/15/2023 Payers Date Payer Category Payer Unknown 2021 Unknown [id number] 1970 Unknown [id number] 2.16.84 0.1.097250.3.579.2.593 1970 Unknown [id number] 2.16.84 0.1.059079.3.579.2.593 1970 Unknown [id number] 2.16.84 0.1.095798.3.579.2.593 1970 Unknown [id number] 2.16.84 0.1.832843.3.579.2.593 1970 Unknown [id number] 2.16.84 0.1.278494.3.579.2.593 1970 Unknown [id number] 2.16.84 0.1.828229.3.579.2.593 1970 Unknown [id number] 2.16. 840.1.766621.3.579.2.356 1970 Unknown [id number] 2.16.8 40.1.351649.3.579.2.727 1970 Unknown [id number] 2.16.8 40.1.223048.3.579.2.727 1970 Unknown [id number] 2.16.840. 1.178498.3.579.2.1259 1970 Unknown [id number] 2.16.840 .1.287126.3.579.2.1246 1970 Unknown [id number] 2.16.840 .1.085970.3.579.2.1246 1970 Unknown [id number] 2.16.840 .1.644270.3.579.2.1246 1970 Unknown [id number] 2.16.840 .1.872819.3.579.2.1246 1970 Unknown [id number] 2.16.84 0.1.871268.3.579.2.1246 1970 Unknown [id number] 2.16.8 40.1.771495.3.579.2.1246 1970 Unknown [id number] 2.16.8 40.1.049653.3.579.2.1246 1959 Unknown [id number] Social History Date Type Detail Facility Tobacco Cigarettes [facility] Comment on above: 1 ppd Sex Assigned At Male [facility] Tobacco smoking status No Smokin g Status Entered [facility] Daily caffeine consumption Daily caffeine consumption -[facility] 600 DO Work Phone: Comment on above: 1-2 PACKS DAILY; [facility] Work Phone: Start: 1970 Sex Assigned At Not on file [facility] Work Phone: Start: 08-05-2023 End: 08-15-2023 Exposure to SARS-CoV-2 (event) Not sure [facility] Clinical Notes 11-01-2021 to 11-28-2023 RadiologyRadiologyRadiologyRadiology Note Date & Type Note Facility 11-28-2023 Evaluation + Plan note Future Scheduled TestsCT Chest, Low Dose Screening 11/28/23 [facility] 08-26-2022 Hospital Discharg e instructions Follow Up Care 08/26/2022 10:06:59 With:Quintin Vo Address: [address] [address]- [phone] [employer] (1) When: Unknown Comments:f/u in [address] chest low dose screening prior to f/u in 1 year. If he talks to Dr. Degroot, she can order ct screening and do f/u and he will not need to see me. [facility] 08-15-2022 Hospital Discharg e instructions Follow Up Care 08/15/2022 13:08:07 With:Quintin Vo Address: [address] [address]- [phone] [employer] (1) When: Unknown Comments:f/u with me or opal after ct ches with contrast in a year. [facility] 11-01-2021 Hospital Discharg e instructions Follow Up Care 11/01/2021 13:28:42 With:Quintin Vo [address]: [address] [address] [phone] [employer] Business (1) When: Unknown Comments:finish Sowmya in JuneCT chest w/ contrast in 6mofollow-up with Dr. Dobbins in 6mo after scan [facility] Evaluation + Plan note Future Appointments Appointment Date:01/31/2022 12:30:00 PM Scheduled Provider:Adwoa Delgado Location:[facility]ONCOLOGY Appointment Type:ONC Office Visit 15 (FT) [facility] Evaluation + Plan note Future Appointments Appointment Date:08/10/2022 12:30:00 PM Scheduled Provider:Quintin Vo DO Location:[facility]ONCOLOGY Appointment Type:ONC Office Visit 15 (FT) Future Scheduled TestsCT Chest w/ Contrast 08/02/22 [facility] Evaluation + Plan note Future Appointments Appointment Date:08/25/2022 10:15:00 AM Scheduled Provider:Quintin Vo DO Location:[facility].ONCOLOGY Appointment Type:ONC Office Visit 30 (FT) [facility] Evaluation + Plan note Future Scheduled TestsCT Chest w/ Contrast 08/09/23 [facility] Evaluation + Plan note Future Appointments Appointment Date:08/30/2023 02:00:00 PM Scheduled Provider:Quintin Vo DO Location:[facility].ONCOLOGY Appointment Type:ONC Office Visit 15 (FT) [facility] Evaluation + Plan note Future Scheduled TestsCT Chest, Low Dose Screening 11/28/23 [facility] Evaluation note Diagnosis Femoral bruit documented in this encounter [facility] Work Phone: Evaluation note* Diagnosis Heart murmur Undiagnosed cardiac murmurs Pre-operative cardiovascular examination documented in this encounter [facility] Work Phone: Evaluation note* Diagnosis Femoral bruit documented in this encounter [facility] Work Phone: Evaluation note* Diagnosis Heart murmur Undiagnosed cardiac murmurs Pre-operative cardiovascular examination documented in this encounter [facility] Work Phone: Hospital course Narrative No data available for this section [facility] No data available for this section [facility] No data available for this section [facility] Summary Purpose Family History Unknown Family Member [...] This is scheduled with Dr. Robbins in [place]. The patient is not a very good [...] cardiovascular examination Procedures Transthoracic Echo (TTE) Complete MI ECHO TRANSTHORC R-T 2D W/WO M-MODE REC F-UP/LMTD MI DOP ECHOCARD COLOR FLOW VELOCITY MAPPING MI DOP ECHOCARD PULSE WAVE W/SPECTRAL F-UP/LMTD STD Guillermina Goldstein MD [address] [facility] 2, [address] [address] Referral ID Status Reason Start Date Expiration Date Visits Requested Visits Authorized [id number] Authorized Perform Procedure 07/17/2023 01/13/2024 1 1 Specialty Diagnoses / Procedures Referred By Oneil enrique Referred To Contact Cardiology Diagnoses Femoral bruit Procedures Vascular US PVR without exercise Guillermina Goldstein MD [address], [address] [place] [address] Referral ID Status Reason Start Date Expiration Date Visits Requested Visits Authorized [id number] Authorized Perform Procedure 07/17/2023 01/13/2024 1 1 Additional Source Comments (unrecognized sect ion and content) No Status Records FoundNo Status Records FoundNo Status Records FoundNo Status Records FoundNo Status Records FoundNo Status Records Found INFORMATION SOURCE (unrecogn ized section and content) DATE CREATED AUTHOR 07/19/2022 [facility] [place] [facility] DATE CREATED AUTHOR AUTHOR'S ORGANIZ ATION 06/27/2023 [facility] DATE CREATED AUTHOR AUTHOR'S ORGANIZ ATION 06/28/2023 [employer] DATE CREATED AUTHOR AUTHOR'S ORGANIZ ATION 09/01/2023 [facility] DATE CREATED AUTHOR AUTHOR'S ORGANIZ ATION 09/04/2023 [facility] EPIC DATE CREATED AUTHOR AUTHOR'S ORGANIZ ATION 06/04/2024 [facility] Patient Care team informatio n (unrecognized section and content) Personnel Name: Anabell Degroot DO Address: Address: [address] [place] [address] Liza tyler , [address] [employer] Relationship Specialty Start Date End Date Anabell Dergoot DO [address] [place] [address] PCP - General 06/27/23 [employer] Relationship Specialty Start Date End Date Anabell Degroot DO [address] [place] [address] PCP - General 06/27/23 [employer] Relationship Specialty Start Date End Date Anabell Degroot DO PCP - General 06/27/23 [employer] Relationship Specialty Start Date End Date Anabell Degroot DO PCP - General 06/27/23 Reason for Visit (unrecogniz ed section and content) Specialty Diagnoses / Procedures Referred By Oneil t Referred To Contact Cardiology Diagnoses Femoral bruit Procedures Vascular US PVR without exercise Guillermina Goldstein MD [address] [facility] [address], [address] [address] Referral ID Status Reason Start Date Expiration Date Visits Requested Visits Authorized [id number] Authorized Perform Procedure 07/17/2023 01/13/2024 1 1 Specialty Diagnoses / Procedures Referred By Oneil t Referred To Contact Radiology Diagnoses Abnormal electrocardiogram (ECG) (EKG) Encounter for preprocedural cardiovascular examination Procedures Nuclear Stress Test CHG MYOCARDIAL SPECT MULTIPLE STUDIES CHG MYOCARDIAL SPECT SINGLE STUDY AT REST OR STRESS MI CV STRS TST XERS&/OR RX CONT ECG W/O I&R MI CV STRS TST XERS&/OR RX CONT ECG I&R ONLY MI CV STRS TST XERS&/OR RX CONT ECG TRCG ONLY MI CV STRS TST XERS&/OR RX CONT ECG W/SI&R Guillermina Goldstein MD [address] [facility] 2, [address] [address] Referral ID Status Reason Start Date Expiration Date V isits Requested Visits Authorized [id number] Authorized 07/06/2023 01/02/2024 3 3 Specialty Diagnoses / Procedures Referred By Oneil t Referred To Contact Cardiology Diagnoses Heart murmur Pre-operative cardiovascular examination Procedures Transthoracic Echo (TTE) Complete MI ECHO TRANSTHORC R-T 2D W/WO M-MODE REC F-UP/LMTD MI DOP ECHOCARD COLOR FLOW VELOCITY MAPPING MI DOP ECHOCARD PULSE WAVE W/SPECTRAL F-UP/LMTD STD Guillermina Goldstein MD [address], [address] [address] Referral ID Status Reason Start Date Expiration Date Visits Requested Visits Authorized [id number] Authorized Perform Procedure 07/17/2023 01/13/2024 1 1 [...] BE BASED ON THE PRIMARY CLINICAL RECORDS. [facility] [email or web address] [facility]. provides no warranty or guarantee of the accuracy or completeness of information in this document.
== END 2025-07-08 11:36 | disposition home or self-care (01) ==
LOC: WC 11:35
PROVIDERS: PCP Emergency Medicine; Visit Provider Physician Assistant
DX: L97.525 Non-pressure chronic ulcer of other part of left foot with muscle involvement without evidence of necrosis (principal)
CPT/HCPCS: 11043

== ENCOUNTER 2025-07-30 11:14 | Outpatient (OUT) | payer OTHER, SELFPAY ==
--- OUTSIDE RECORDS SUMMARY | 2025-07-30 11:21 | XMS_ITS | CCD ---
Author Organization [facility] Care Team Providers Care Systems Program Manager Name Role Phone Anabell Degroot Primary Care Physician [phone] IMAN ROBBINS Attending Unavailable IMAN ROBBINS Admitting Unavailable ARASH, DR ROBIN Michael Primary Care Unavailable ARASH, DR ROBIN Michael Primary Care Unavailable SHABNAM CORONA Admitting Unavailabl e CLOUGHERTYSHABNAM Attending Unavailabl e [...] breath or wheezing, 8.5 gm, Refill(s) 0, [facility], 191, cm, 10/06/21 9:14:00 EST, Height/Length Dosing, 100, kg, 10/06/21 9:14:00 EST, Weight Dosing Start Date: 10/11/21 Status: Ordered apixaban 5 mg oral tablet (16 sources) Factor Xa Inhibitor Start: 10-11-2021 take 1 tablet by mouth twice daily Eliquis 5 mg oral tablet 5 mg = 1 tab(s), Oral, BID, # 60 tab(s), Refills(s) 3, Pharmacy: [facility] 1985, 191, cm, 11/01/21 13:08:00 EST, Height/Length Dosing, 97.2, kg, 11/01/21 13:07:00 EST, Weight Dosing Start Date: 11/01/21 Status: Ordered dexamethasone 6 mg oral tablet (8 sources) Corticosteroid Start: 10-11-2021 take 1 tablet by mouth once daily dexamethasone 6 mg oral tablet 6 mg = 1 tab(s), Oral, Daily, # 4 tab(s), Refills(s) 0, Pharmacy: [facility] 1985, 191, cm, 10/06/21 9:14:00 EST, [...] Consent for Treatmenton Consent for Treatment [id number]#1.00T IFF Normal [facility] Oncology Progress Noteon Oncology Progress Note [...] He was prescribed Eliquis at discharge from [facility]. He also has a history of some [...] overal grwoing very slowly since 2018 now [id number] no new complaints. / 08/30/23 doing well. [...] Problem list: All Problems Smoker / IMO 047202 / Confirmed Added secondary to documentation in Social History. Resolved: COPD / SNOMED CT 36508570 Resolved: cyst removed Resolved: Hypercholesterolemia / SNOMED CT 72555265 Canceled: Tobacco use / SNOMED CT [id number] -[id number] Added secondary to social history documentation. Histories Past Medical History: Resolved COPD (17257936): Resolved. cyst removed: Resolved. Hypercholesterolemia (44577317): Resolved. Family History: No family history items have been selected or recorded. Procedure history: cyst removed. Social History Social & Psychosocial Habits Alcohol 08/30/2023 Risk Assessment: Denies Alcohol Use Comment: denies - 08/19/2019 09:22 - Lisa Fajardo RN Substance Abuse 08/30/2023 Risk Assessment: Denies Substance Abuse Comment: denies - 08/19/2019 09:22 - Lisa Fajarod RN Tobacco 08/30/2023 Risk Assessment: High Risk [...] . Impression and Plan Diagnosis Pulmonary embolus (IGI79-HA I26.99, Working, Medical). COVID-19 with pulmonary comorbidity (PZP48-AP U07.1, Working, Medical). .. Pulmonary Embolus d/t COVID completed 6 mos El (more content not included)... Normal [facility] Outside Progress Noteon 07-25 Outside Progress Note [id number]#1.00 TIFF Normal [facility] Heart TransthoracicOrdere d By: Guillermina Goldstein on 08-18-2023 LV A4C EF 74.7 [facility] Work Phone: [facility] Work Phone: Heart Transthoracicon [address], [address] [place] [address] TRANSTHORACIC ECHOCARDIOGRAM REPORT Patient Name: CHAKA COMPACharles Itzel Physician: [id number] Guillermina Goldstein MD, [facility] Study Date: 08/15/2023 Ordering Provider: [id number] GUILLERMINA GOLDSTEIN MRN/PID: [id number] Fellow: Nurse: Date of /Age: 3 1970 / 52 years [employer] Operator: Heaven Simmons RDCS Seferino Gender: M Additional Staff: Height: 190.50 cm Admit Date: Weight: 92.99 kg Admission Status: BSA: 2.22 m2 Department Location: [facility] Blood Pressure: 126 /72 mmHg Study Type: TRANSTHORACIC ECHO (TTE) COMPLETE Diagnosis/ICD: Cardiac murmur, unspecified-R01.1; Encounter for preprocedural cardiovascular examination-Z01.810 Indication: Abnormal EKG, POC-Dr. Robbins for Foot Ulcer/Date Pending, COPD, Hyperlipidemia, 2/6 Systolic Murmur, Tobacco Abuse, Overweight, Femoral Artery Bruit CPT Codes: Echo Complete w Full Doppler-74262 Study Detail: The following Echo studies were [...] included)... Guillermina Santos M D - 08/18/[address], [address], [place] [address] TRANSTHORACIC ECHOCARDIOGRAM REPORT Patient Name: CHAKA DE LEÓN Itzel Physician: [id number] Guillermina Goldstein MD, [facility] Study Date: 08/15/2023 Ordering Provider: [id number] GUILLERMINA GOLDSTEIN MRN/PID: [id number] Fellow: Nurse: Date of /Age: 3 1970 / 52 years [employer] Operator: Heaven Simmons RDCS, RVT Gender: M Additional Staff: Height: 190.50 cm Admit Date: Weight: 92.99 kg Admission Status: BSA: 2.22 m2 Department Location: [facility] Blood Pressure: 126 /72 mmHg Study Type: TRANSTHORACIC ECHO (TTE) COMPLETE Diagnosis/ICD: Cardiac murmur, unspecified-R01.1; Encounter for preprocedural cardiovascular examination-Z01.810 Indication: Abnormal EKG, POC-Dr. Robbins for Foot Ulcer/Date Pending, COPD, Hyperlipidemia, 2/6 Systolic Murmur, Tobacco Abuse, Overweight, Femoral Artery Bruit CPT Codes: Echo Complete w Full Doppler-76982 Study Detail: The following Echo studies were [...] mmHg PIEDV: 2.00 m/s PADP: 19.0 mmHg [id number] Guillermina Goldstein MD, [facility] Electronically signed on 08/18/2023 at 2:33:32 PM Final [facility] Work Phone: Vascular US PVR without exer ciseon 08-18-[address], [place] [address] Vascular Lab Report VASC US PVR WITHOUT EXERCISE Patient Name: CHAKA Robbins Physician: [id number] Guillermina Goldstein MD, FAC Study Date: 08/15/2023 Ordering Provider: [id number] GUILLERMINA GOLDSTEIN MRN/PID: [id number] Fellow: Technologist: Heaven Simmons RDCS, T Date of /Age: 3 1970 / 52 years Technologist 2: Gender: M Admission Status: Outpatient Location Performed: [facility] Diagnosis/ICD: Other specified symptoms and signs [...] Final Guillermina Santos M D - 08/18/[address], [place] [address] Vascular Lab Report VASC US PVR WITHOUT EXERCISE Patient Name: CHAKA Robbins Physician: Elkin Goldstein MD, FACC Study Date: 08/15/2023 Ordering Provider: Elkin GOLDSTEIN MRN/PID: [id number] Fellow: Technologist: Heaven Simmons RDCS, T Date of /Age: 3 1970 / 52 years Technologist 2: Gender: M Admission Status: Outpatient Location Performed: [facility] Diagnosis/ICD: Other specified symptoms and signs [...] Left Brachial Pressure 112 mmHg 101 mmHg [id number] Guillermina Goldstein MD, FACC Final [facility] Work Phone: Vascular US PVR without exer ciseOrdered By: Guillermina Goldstein on 08-18-2023 [facility] Work Phone: NM Heart Perfusion W stress and W radionuclide Robina 08-15-2023 Normal Lexiscan Myov iew cardiac perfusion stress test. No evidence of ischemia or myocardial infarction by perfusion imaging. Normal left ventricular systolic function, ejection fraction 64%. No previous studies are available for comparison. Signed by: Guillermina Goldstein 08/15/2023 6:10 PM Dictation workstation: [id number] Interpreted By: Guillermina Goldstein, and Shalom Correia STUDY: MYOCARDIAL PERFUSION STRESS TEST WITH LEXISCAN Performing facility: [facility], [address] [place] [address] [address], [address] Provider: Guillermina Goldstein MD, [facility] PCP: Dr. Daniel Degroot Supervising provider: Guillermina Goldstein MD, [facility] INDICATION: Abn EKG Pre-operative risk assessment for Toe surgery scheduled at [place] on TBD. HISTORY: Gender: M; Age: 52 y/o ; Height: HT 190.5 cm cm; Weight: WT 92.987 kg kg. Abnormal EKG; High Cholesterol; COPD; Currently smoking. COMPARISON: No comparison. ACCESSION NUMBER(S): [id number] ORDERING CLINICIAN: GUILLERMINA GOLDSTEIN TECHNIQUE: ONE DAY [...] PERFUSION STRESS TEST WITH LEXISCAN Performing facility: [facility], [address] [address], [address], [place] [id number] [facility] Provider: Guillermina Goldstein MD, [facility] PCP: Dr. Daniel Degroot Supervising provider: Guillermina Goldstein MD, [facility] INDICATION: Abn EKG Pre-operative risk assessment for Toe surgery scheduled at [place] on TBD. HISTORY: Gender: M; Age: 52 y/o ; Height: HT 190.5 cm cm; Weight: WT 92.987 kg kg. Abnormal EKG; High Cholesterol; COPD; Currently smoking. COMPARISON: No comparison. ACCESSION NUMBER(S): [id number] ORDERING CLINICIAN: GUILLERMINA GOLDSTEIN TECHNIQUE: ONE DAY [...] Guillermina Goldstein 08/15/2023 6:10 PM Dictation workstation: [id number] [facility] Work Phone: Radiology Study observation (narrative) [facility] Work Phone: NM Heart Perfusion W stress and W radionuclide IVOrdered By: Guillermina Goldstein on 08-15-2023 [facility] Work Phone: NUCLEAR STRESS TESTon 2022 NUCLEAR STRESS TEST Interpreted By: Guillermina Goldstein and Giannuzzi Michael STUDY: MYOCARDIAL PERFUSION STRESS TEST WITH LEXISCAN Performing facility: [facility], [address] [facility] [address], [address], [address] Provider: Guillermina Goldstein MD, FACC PCP: Dr. Daniel Degroot Supervising provider: Guillermina Goldstein MD, FACC INDICATION: Abn EKG Pre-operative risk assessment for Toe surgery scheduled at [place] on TBD. HISTORY: Gender: M; Age: 52 y/o ; Height: HT 190.5 cm cm; Weight: WT 92.987 kg kg. Abnormal EKG; High Cholesterol; COPD; Currently smoking. COMPARISON: No comparison. ACCESSION NUMBER(S): [id number] ORDERING CLINICIAN: GUILLERMINA GOLDSTEIN TECHNIQUE: ONE DAY [...] Guillermina Goldstein 08/15/2023 6:10 PM Dictation workstation: [id number] [facility] Comment on above: Order Comment: José Antonio S elected: Y [facility] to schedule and to read TRANSTHORACIC ECHO (TTE) COM PLETEon 08-15-2023 TRANSTHORACIC ECHO (TTE) COMPLETE [address], [address], [place] [address] TRANSTHORACIC ECHOCARDIOGRAM REPORT Patient Name: CHAKA DE LEÓN Reading Physician: [id number] Guillermina Goldstein MD, [facility] Study Date: 08/15/2023 Ordering Provider: [id number] GUILELRMINA GOLDSTEIN MRN/PID: [id number] Fellow: Nurse: Date of /Age: 3 1970 / 52 years [employer] Operator: Heaven Simmons RDCS, T Gender: M Additional Staff: Height: 190.50 cm Admit Date: Weight: 92.99 kg Admission Status: BSA: 2.22 m2 Department Location: [facility] Blood Pressure: 126 /72 mmHg Study Type: TRANSTHORACIC ECHO (TTE) COMPLETE Diagnosis/ICD: Cardiac murmur, unspecified-R01.1; Encounter for preprocedural cardiovascular examination-Z01.810 Indication: Abnormal EKG, POC-Dr. Robbins for Foot Ulcer/Date Pending, COPD, Hyperlipidemia, 2/6 Systolic Murmur, Tobacco Abuse, Overweight, Femoral Artery Bruit CPT Codes: Echo Complete w Full Doppler-30591 Study Detail: The following Echo studies were [...] mmHg PIEDV: 2.00 m/s PADP: 19.0 mmHg [id number] [facility]stein MD, [facility] Electronically signed on 08/18/2023 at 2:33:32 PM Final [facility] US PVR WITHOUT EXERCISE on 08-15-2023 [facility] US PVR WITHOUT EXERCISE [address], [address], [place] [address] Vascular Lab Report [facility] US PVR WITHOUT EXERCISE Patient Name: CHAKA DE LEÓN Itzel Physician: [id number] Guillermina Goldstein MD, FACC Study Date: 08/15/2023 Ordering Provider: [id number] GUILLERMINA GOLDSTEIN MRN/PID: [id number] Fellow: Technologist: Heaven Simmons RD, T Date of /Age: 3 1970 / 52 years Technologist 2: Gender: M Admission Status: Outpatient Location Performed: [facility] Diagnosis/ICD: Other specified symptoms and signs [...] Left Brachial Pressure 112 mmHg 101 mmHg [id number] Guillermina Goldstein MD, FACC Final Normal [facility] Vascular US PVR without exer ciseon 08-15-2023 Radiology Study observation (narrative) [facility] Work Phone: CT Chest w/ Contraston 08-11 [...] 300 Contrast amount in ml's: 100 Normal [facility] Consent for Treatmenton 07-23 Consent for Treatment [id number]#1.00T IFF Normal [facility] Outside Progress Noteon 10- Outside Progress Note [id number]#1.0 0TIFF Normal [facility] Insurance Correspondenceon 1 Insurance Correspondence [id number]#1.00 TIFF Normal [facility] Office Visit (Cardiology)on 06-27-2023 Follow-up visit [...] Lipid Panel; Status:Active - Retrospective Authorization; Requested for:[id number]; Overweight with body mass index (BMI) of 25 to 25.9 in adult Healthy Weight Tips; Status:Complete - Retrospective Authorization; Done: [id number] Some eating tips that can help you lose weight.; Status:Complete - Retrospective Authorization; Done: [id number] SocHx: Current smoker You need to stop smoking. Though it is not easy, more than half of all adult smokers have quit. We encourage you to write down all the reasons you should quit smoking and set a quit date for yourself. Ask us how we can help. You may also call 6-867-QVTNiHeartNOW for free resources and assistance.; Status:Complete - Retrospective Authorization; Done: [id number] Tobacco Use Screening; Status:Complete; Done: [id number] Patient Instructions Please bring all medicines, vitamins, [...] This is scheduled with Dr. Robbins in [place]. The patient is not a very good [...] echocardiogram to (more content not included)... Normal [facility] Tobacco Screening.on 023 Fall risk assessment a) No falls within the last year [facility] 600 DO Work Phone: Tobacco use status CP a) Yes [facility] [employer] 600 DO Work Phone: Tobacco Screening. Yes [facility] [employer] 600 DO Work Phone: Physician Orderon 06-23-2023 Physician Order Scheduled in [facility] on 06/29. Spoke with Monika at [facility] and let her know I got patient scheduled. [id number]#1.00C D:127 Normal [facility] XR FOOT LT MIN 3 VIEWSon [...] by: ELHAM GOODE Date: 2022-04-11 16:53 Normal [facility] Vital Signs Date Time Vital Sign Value Performing Clinician Facility 08-30-2023 13:58-0500 Heart rate 79 /min [facility] 08-30-2023 13:58-0500 SaO2% (BldA) [Mass fraction] 97 % [facility] 08-30-2023 13:58-0500 Body temperature 97.88 [degF] [facility] 08-30-2023 13:57-0500 Diastolic blood pressure 73 mm[Hg] [facility] 08-30-2023 13:57-0500 Mean blood pressure 89 mm[Hg] [facility] 08-30-2023 13:57-0500 Systolic blood pressure 120 mm[Hg] [facility] 08-30-2023 13:56-0500 Respiratory rate 14 /min [facility] 08-15-2023 11:20-0400 Body height 190.[address] 08-15-2023 11:20-0400 Body mass index (BMI) [Ratio] 25.62 kg/m2 [address] 08-15-2023 11:20-0400 Body weight 92.[address] 08-15-2023 11:20-0400 Diastolic blood pressure 60 mm[Hg] [address] 08-15-2023 11:20-0400 Heart rate 73 /min [address] 08-15-2023 11:20-0400 Systolic blood pressure 102 mm[Hg] [address] 08-15-2023 08:42-0400 Body height 190.[address] 08-15-2023 08:42-0400 Body mass index (BMI) [Ratio] 25.62 kg/m2 [address] 08-15-2023 08:42-0400 Body weight 92.[address] 08-15-2023 08:42-0400 Diastolic blood pressure 72 mm[Hg] [address] 08-15-2023 08:42-0400 Systolic blood pressure 126 mm[Hg] [address] 06-27-2023 11:21-0400 Diastolic blood pressure 54 mm[Hg] Anabell C Mikayla Work Phone: [facility] [employer] 600 DO Work Phone: 06-27-2023 11:21-0400 Systolic blood pressure 98 mm[Hg] Anabell C Mikayla Work Phone: [facility] [employer] 600 DO Work Phone: 06-27-2023 11:18-0400 Body height 190.5 cm Anabell C Mikayla Work Phone: [facility] [employer] 600 DO Work Phone: 06-27-2023 11:18-0400 Body mass index (BMI) [Ratio] 25.62 kg/m2 Anabell C Mikayla Work Phone: [facility] [employer] 600 DO Work Phone: 06-27-2023 11:18-0400 Body surface area Derived from formula 2.22 m2 Anabell C Mikayla Work Phone: [facility] [employer] 600 DO Work Phone: 06-27-2023 11:18-0400 Body weight 92.99 kg Anabell C Mikayla [facility]: [facility] 600 DO Work Phone: 06-27-2023 11:18-0400 Diastolic blood pressure 54 mm[Hg] Anabell Sampson Mikayla Work Phone: [facility] 600 DO Work Phone: 06-27-2023 11:18-0400 Heart rate 64 /min Anabell Sampson Mikayla Work Phone: [facility] 600 DO Work Phone: 06-27-2023 11:18-0400 Systolic blood pressure 100 mm[Hg] Anabell Sampson Mikayla [facility]: [facility] 600 DO Work Phone: 08-25-2022 10:30-0400 Blood Pressure Location [facility] 08-25-2022 10:30-0400 Body temperature 98.24 [degF] [facility] 08-25-2022 10:30-0400 BP/Pulse Patient Position [facility] 08-25-2022 10:30-0400 Diastolic blood pressure 67 mm[Hg] [facility] 08-25-2022 10:30-0400 Heart rate 75 /min [facility] 08-25-2022 10:30-0400 Mean blood pressure 83 mm[Hg] [facility] 08-25-2022 10:30-0400 Respiratory rate 19 /min [facility] 08-25-2022 10:30-0400 SaO2% (BldA) [Mass fraction] 95 % [facility] 08-25-2022 10:30-0400 Systolic blood pressure 113 mm[Hg] [facility] 01-31-2022 12:33-0400 Blood Pressure Location Adwoa Monahan [facility] 01-31-2022 12:33-0400 Body temperature 97.7 [degF] Adwoa Monahan [facility] 01-31-2022 12:33-0400 BP/Pulse Patient Position Adwoa Monahan [facility] 01-31-2022 12:33-0400 Diastolic blood pressure 74 mm[Hg] Adwoa Monahan [facility] 01-31-2022 12:33-0400 Heart rate 91 /min Adwoa Monahan [facility] 01-31-2022 12:33-0400 Mean blood pressure 90 mm[Hg] Adwoa Monahan [facility] 01-31-2022 12:33-0400 Respiratory rate 17 /min Adwoa Monahan [facility] 01-31-2022 12:33-0400 SaO2% (BldA) [Mass fraction] 96 % Adwoa Taniya [facility] 01-31-2022 12:33-0400 Systolic blood pressure 121 mm[Hg] Adwoa Taniya [facility] Encounters Encounter Date Encounter Type Care Provider Facility Start: 09-05-2024 End: 09-12-2024 Pre-admission assessment Quintingaston Vo [facility] Start: 08-31-2023 End: 09-01-2023 ambulatory MEJIA HARDING Not Available Start: 08-30-2023 End: 08-31-2023 ambulatory Quintin Vo Facility:[facility] Start: 08-30-2023 End: 08-30-2023 Patient encounter procedure Quintin Vo [facility] Start: 08-15-2023 End: 08-15-2023 Subsequent hospital visit by physician Randee Beavers Stress Room 1 [facility] Start: 08-15-2023 End: 08-15-2023 Patient encounter status Randee 2 [facility] Work Phone: Start: 08-15-2023 End: 08-15-2023 Subsequent hospital visit by physician Randee Beavers Echo/Vasc Room 2 [facility] Comment on above: Femoral bruit Heart murmur; Pre-operative cardiovascular examination Start: 08-15-2023 End: 08-15-2023 ambulatory GUILLERMINA GOLDSTEIN [facility] Start: 08-15-2023 End: 08-15-2023 Encounter for preprocedural cardiovascular examination ANABELL DEGROOT [facility] Start: 08-10-2023 End: 08-11-2023 ambulatory Quintin Vo Facility:[facility] Start: 08-10-2023 End: 08-10-2023 Patient encounter procedure Quintin Vo [facility] Start: 06-27-2023 Office consultation new/estab patient 60 min Anabell Sampson NarvaezMikayla Work Phone: [facility] [place] 600 DO Work Phone: Start: 06-27-[address] Guillermina Goldstein Facility: Start: 06-22-[address] [facility] Start: 08-25-2022 End: 08-25-2022 Patient encounter procedure Quintin Vo [facility] Start: 08-16-2022 End: 08-16-2022 Patient encounter procedure Adwoa Gonzales Taniya [facility] Start: 06-20-2022 End: 06-21-2022 ambulatory IMAN ROBBINS Facility:[facility] Start: 05-24-2022 End: 05-25-2022 ambulatory IMAN ROBBINS Facility:[facility] Start: 04-26-2022 End: 04-27-[address] ROBIN ANTOINE Facility:[facility] Start: 04-11-2022 End: 04-12-[address] ROBIN ANTOINE Facility:[facility] Start: 01-31-2022 End: 01-31-2022 Patient encounter procedure Adwoa Monahan [facility] Start: 01-28-2022 End: 01-28-2022 Patient encounter procedure Quintin Vo [facility] Start: 01-28-2022 End: 01-29-2022 Pre-admission assessment Cristopher Stevenson [facility] Start: 10-04-[address] ROBIN ANTOINE Facil ity:[facility] Start: 08-02-2021 End: 08-03-2021 ambulatory HAQUE Lizz MORENOCHARAN Facility:[facility] Patient encounter status Anabell Degroot Work Phone: [facility] 600 DO Work Phone: Procedures Date [...] Goldstein MD Work Phone: cyst removed Quintin Rodriguze cz Tonsillectomy Anabell Degroot Work Phone: Plan of Treatment Date Care Activity Detail Author Start: 09-19-2023 FUV, Provider: Guillermina Goldstein, Status: Pen, Time: 11:30 AM FUV, Provider: Guillermina Goldstein, Status: Pen, Time: 11:30 AM -[facility] 600 DO Work Phone: Start: 09-19-2023 End: 09-19-2023 Patient encounter procedure 09/19/2023 11:30 AM EST Office Visit [place] [address] [place] [address] Guillermina Goldstein MD [address] [place] [address] [facility] Start: 08-15-2023 PVR, Provider: BINTA HERRERA [facility] ULTRASOUND 01,[id number], Status: Pen, Time: 9:45 AM PVR, Provider: ARIANNA [facility] ULTRASOUND 01,[id number], Status: Pen, Time: 9:45 AM [facility] 600 DO Work Phone: Start: 08-15-2023 ECHO, Provider: EDISON GONZALEZ [facility] ULTRASOUND 01,[id number], Status: Pen, Time: 8:45 AM ECHO, Provider: ARIANNA [facility] ULTRASOUND 01,[id number], Status: Pen, Time: 8:45 AM [facility] 600 [facility] Work Phone: Start: 08-15-2023 STRESS NUC, Provider : ARIANNA [facility] NUCLEAR 01,[id number], Status: Pen, Time: 8:00 AM STRESS NUC, Provider: ARIANNA [facility] NUCLEAR 01,[id number], Status: Pen, Time: 8:00 AM [facility] 600 DO Work Phone: Start: 06-23-2023 Influenza vaccination Influenza Vacc ine (#1) [facility] Start: 2020 Zoster Vaccines (1 of 2) Zoste r Vaccines (1 of 2) [facility] Start: 1992 DTaP/Tdap/Td Vaccine s (1 - Tdap) DTaP/Tdap/Td Vaccines (1 - Tdap) [facility] Start: 1989 Hepatitis A Vaccines (1 of 2 - Risk 2-dose series) Hepatitis A Vaccines (1 of 2 - Risk 2-dose series) [facility] Start: 1988 Diabetes mellitus screening Diabetes Screening [facility] Start: 1988 Hepatitis C screening Hepatitis C [facility] Start: 1976 Pneumococcal Vaccine : Pediatrics (0 to 5 Years) and At-Risk Patients (6 to 64 Years) (1 - PCV) Pneumococcal Vaccine: Pediatrics (0 to 5 Years) and At-Risk Patients (6 to 64 Years) (1 - PCV) [facility] Start: 12-24-1971 MMR Vaccines (1 of 1 - Standard series) MMR Vaccines (1 of 1 - Standard series) [facility] Start: 06-25-1971 COVID-19 Vaccine (#1) COVID-19 Vacci ne (#1) [facility] Start: 1970 Hepatitis B Vaccines (1 of 3 - 3-dose series) Hepatitis B Vaccines (1 of 3 - 3-dose series) [facility] Start: 1970 HIV screening HIV Screening [facility] Start: 1970 Lipid panel Lipid Panel [facility] Start: 1970 Screening for malign ant neoplasm of colon [facility] Start: 1970 Yearly Adult Physical Yearly Adult P hysical [facility] End: 08-15-2023 US Heart Transthoracic [facility] Service Area Work Phone: Comment on above: Once for 1 Occurrenc es starting 08/15/2023 until 08/15/2023 End: 08-15-2023 Vascular US PVR without exercise [facility] Service Area Work Phone: Comment on above: Once for 1 Occurrenc es starting 08/15/2023 until 08/15/2023 Payers Date Payer Category Payer Unknown 2021 Unknown [id number] 1970 Unknown [id number] 2.16.84 0.1.842243.3.579.2.593 1970 Unknown [id number] 2.16.84 0.1.985148.3.579.2.593 1970 Unknown [id number] 2.16.84 0.1.473165.3.579.2.593 1970 Unknown [id number] 2.16.84 0.1.167421.3.579.2.593 1970 Unknown [id number] 2.16.84 0.1.125125.3.579.2.593 1970 Unknown [id number] 2.16.84 0.1.174545.3.579.2.593 1970 Unknown [id number] 2.16. 840.1.395149.3.579.2.356 1970 Unknown [id number] 2.16.8 40.1.926500.3.579.2.727 1970 Unknown [id number] 2.16.8 40.1.446461.3.579.2.727 1970 Unknown [id number] 2.16.840. 1.047874.3.579.2.1259 1970 Unknown [id number] 2.16.840 .1.762695.3.579.2.1246 1970 Unknown [id number] 2.16.840 .1.693966.3.579.2.1246 1970 Unknown [id number] 2.16.840 .1.683676.3.579.2.1246 1970 Unknown [id number] 2.16.840 .1.228225.3.579.2.1246 1970 Unknown [id number] 2.16.84 0.1.970283.3.579.2.1246 1970 Unknown [id number] 2.16.8 40.1.342924.3.579.2.1246 1970 Unknown [id number] 2.16.8 40.1.706861.3.579.2.1246 1959 Unknown [id number] Social History Date Type Detail Facility Tobacco Cigarettes [facility] Comment on above: 1 ppd Sex Assigned At Male [facility] Tobacco smoking status No Smokin g Status Entered [facility] Daily caffeine consumption Daily caffeine consumption -[facility] [address] DO Work Phone: Comment on above: 1-2 PACKS DAILY; [facility] Work Phone: Start: 1970 Sex Assigned At Not on file [facility] Work Phone: Start: 08-05-2023 End: 08-15-2023 Exposure to SARS-CoV-2 (event) Not sure [facility] Clinical Notes 11-01-2021 to 11-28-2023 RadiologyRadiologyRadiologyRadiology Note Date & Type Note Facility 11-28-2023 Evaluation + Plan note Future Scheduled TestsCT Chest, Low Dose Screening 11/28/23 [facility] 08-26-2022 Hospital Discharg e instructions Follow Up Care 08/26/2022 10:06:59 With:Quintin Vo Address: [address] [address]- [phone] [employer] (1) When: Unknown Comments:f/u in [address] chest low dose screening prior to f/u in 1 year. If he talks to Dr. Degroot, she can order ct screening and do f/u and he will not need to see me. [facility] 08-15-2022 Hospital Discharg e instructions Follow Up Care 08/15/2022 13:08:07 With:Quintin Vo Address: [address] [address] [phone] [employer] (1) When: Unknown Comments:f/u with me or opal after ct ches with contrast in a year. [facility] 11-01-2021 Hospital Discharg e instructions Follow Up Care 11/01/2021 13:28:42 With:Quintin Vo Address: [address] [place] [address] [phone] [employer] Business (1) When: Unknown Comments:finish Sowmya in JuneCT chest w/ contrast in 6mofollow-up with Dr. Dobbins in 6mo after scan [facility] Evaluation + Plan note Future Appointments Appointment Date:01/31/2022 12:30:00 PM Scheduled Provider:Adwoa Delgado Location:[facility].ONCOLOGY Appointment Type:ONC Office Visit 15 (FT) [facility] Evaluation + Plan note Future Appointments Appointment Date:08/10/2022 12:30:00 PM Scheduled Provider:Quintin Vo DO Location:[facility].ONCOLOGY Appointment Type:ONC Office Visit 15 (FT) Future Scheduled TestsCT Chest w/ Contrast 08/02/22 [facility] Evaluation + Plan note Future Appointments Appointment Date:08/25/2022 10:15:00 AM Scheduled Provider:Quintin Vo DO Location:[facility].ONCOLOGY Appointment Type:ONC Office Visit 30 (FT) [facility] Evaluation + Plan note Future Scheduled TestsCT Chest w/ Contrast 08/09/23 [facility] Evaluation + Plan note Future Appointments Appointment Date:08/30/2023 02:00:00 PM Scheduled Provider:Quintin Vo DO Location:[facility].ONCOLOGY Appointment Type:ONC Office Visit 15 (FT) [facility] Evaluation + Plan note Future Scheduled TestsCT Chest, Low Dose Screening 11/28/23 [facility] Evaluation note Diagnosis Femoral bruit documented in this encounter [facility] Work Phone: Evaluation note* Diagnosis Heart murmur Undiagnosed cardiac murmurs Pre-operative cardiovascular examination documented in this encounter [facility] Work Phone: Evaluation note* Diagnosis Femoral bruit documented in this encounter [facility] Work Phone: Evaluation note* Diagnosis Heart murmur Undiagnosed cardiac murmurs Pre-operative cardiovascular examination documented in this encounter [facility] Work Phone: Hospital course Narrative No data available for this section [facility] No data available [facility] this section [facility] No data available for this section [facility] Summary Purpose Family History Unknown Family [...] This is scheduled with Dr. Robbins in [place]. The patient is not a very good [...] cardiovascular examination Procedures Transthoracic Echo (TTE) Complete [place] ECHO TRANSTHORC R-T 2D W/WO M-MODE REC F-UP/LMTD [place] DOP ECHOCARD COLOR FLOW VELOCITY MAPPING [place] DOP ECHOCARD PULSE WAVE W/SPECTRAL F-UP/LMTD STD Guillermina Goldstein MD [address], [address] [address] Referral ID Status Reason Start Date Expiration Date Visits Requested Visits Authorized [id number] Authorized Perform Procedure 07/17/2023 01/13/2024 1 1 Specialty Diagnoses / Procedures Referred By Oneil enrique Referred To Contact Cardiology Diagnoses Femoral bruit Procedures Vascular US PVR without exercise Guillermina Goldstein MD [address], [address] [place] [address] Referral ID Status Reason Start Date Expiration Date Visits Requested Visits Authorized [id number] Authorized Perform Procedure 07/17/2023 01/13/2024 1 1 Additional Source Comments (unrecognized sect ion and content) No Status Records FoundNo Status Records FoundNo Status Records FoundNo Status Records FoundNo Status Records FoundNo Status Records Found INFORMATION SOURCE (unrecogn ized section and content) DATE CREATED AUTHOR 07/19/2022 [facility] [place] [facility] DATE CREATED AUTHOR AUTHOR'S ORGANIZ ATION 06/27/2023 [facility] DATE CREATED AUTHOR AUTHOR'S ORGANIZ ATION 06/28/2023 [employer] DATE CREATED AUTHOR AUTHOR'S ORGANIZ ATION 09/01/2023 [facility] DATE CREATED AUTHOR AUTHOR'S ORGANIZ ATION 09/04/2023 [facility] EPIC DATE CREATED AUTHOR AUTHOR'S ORGANIZ ATION 06/04/2024 [facility] Patient Care team informatio n (unrecognized section and content) Personnel Name: Anabell Degroot DO Address: Address: [address] [place] [address] Liza tyler , [address] Systems Program Manager Relationship Specialty Start Date End Date Anabell Degroot DO [address] [place] [address] PCP - General 06/27/23 Systems Program Manager Relationship Specialty Start Date End Date Anabell Degroot DO [address] [place] [address] PCP - General 06/27/23 Systems Program Manager Relationship Specialty Start Date End Date Anabell Degroot DO PCP - General 06/27/23 Systems Program Manager Relationship Specialty Start Date End Date Anabell Degroot DO PCP - General 06/27/23 Reason for Visit (unrecogniz ed section and content) Specialty Diagnoses / Procedures Referred By Oneil t Referred To Contact Cardiology Diagnoses Femoral bruit Procedures Vascular US PVR without exercise Guillermina Goldstein MD [address], [address] [address] Referral ID Status Reason Start Date Expiration Date Visits Requested Visits Authorized [id number] Authorized Perform Procedure 07/17/2023 01/13/2024 1 1 Specialty Diagnoses / Procedures Referred By Oneil t Referred To Contact Radiology Diagnoses Abnormal electrocardiogram (ECG) (EKG) Encounter for preprocedural cardiovascular examination Procedures Nuclear Stress Test CHG MYOCARDIAL SPECT MULTIPLE STUDIES CHG MYOCARDIAL SPECT SINGLE STUDY AT REST OR STRESS [place] CV STRS TST XERS&/OR RX CONT ECG W/O I&R [place] CV STRS TST XERS&/OR RX CONT ECG I&R ONLY [place] CV STRS TST XERS&/OR RX CONT ECG TRCG ONLY [place] CV STRS TST XERS&/OR RX CONT ECG W/SI&R Guillermina Goldstein MD [address] [facility] 2, [address] [address] Referral ID Status Reason Start Date Expiration Date V isits Requested Visits Authorized [id number] Authorized 07/06/2023 01/02/2024 3 3 Specialty Diagnoses / Procedures Referred By Oneil t Referred To Contact Cardiology Diagnoses Heart murmur Pre-operative cardiovascular examination Procedures Transthoracic Echo (TTE) Complete [place] ECHO TRANSTHORC R-T 2D W/WO M-MODE REC F-UP/LMTD [place] DOP ECHOCARD COLOR FLOW VELOCITY MAPPING [place] DOP ECHOCARD PULSE WAVE W/SPECTRAL F-UP/LMTD STD Guillermina Goldstein MD [address], [address] [address] Referral ID Status Reason Start Date Expiration Date Visits Requested Visits Authorized [id number] Authorized Perform Procedure 07/17/2023 01/13/2024 1 1 [...] BASED ON THE PRIMARY CLINICAL RECORDS. [facility]. provides no warranty or guarantee of the accuracy or completeness of information in this document.
== END 2025-07-30 11:15 | disposition home or self-care (01) ==
LOC: WC 11:14
PROVIDERS: PCP Emergency Medicine; Visit Provider Podiatrist Foot & Ankle Surgery
DX: L97.525 Non-pressure chronic ulcer of other part of left foot with muscle involvement without evidence of necrosis (principal)
CPT/HCPCS: 11042

== ENCOUNTER 2025-08-13 11:18 | Outpatient (OUT) | payer OTHER, SELFPAY ==
--- OUTSIDE RECORDS SUMMARY | 2025-08-13 11:21 | XMS_ITS | Clinical Summary ---
Author Organization [facility] Address [address] [place] [address] Phone Care Team Providers Care Iv Rn Name Role Phone Marguerite Degroot Primary Care Provider [phone] Allergies No known active allergies Social History Tobacco UseTypesPacks/DayYears UsedDateSmoking Tobacco: Never AssessedSex and Gender InformationValueDate RecordedSex Assigned at BirthNot on fileLegal Sex Male06/22/2023 3:19 PM EDTGender IdentityNot on fileSexual OrientationNot on file Last Filed Vital Signs Vital SignReadingTime TakenCommentsBlood Yfajorek740/6010 11:20 AM EDT Jbopa334708/15/2023 11:20 AM EDTTemperature--Respiratory Rate--Oxygen Saturation-- Inhaled Oxygen Concentration--Cdphtw08 kg (205 lb)08/15/2023 11:20 AM EDTHeight 190.5 cm (6' 3 )08/15/2023 11:20 AM EDTBody Mass Index25.6208/15/2023 11:20 AM EDT Plan of Treatment Health MaintenanceDue DateLast DoneCommentsCT Ekswswfgnpfd72/03/1971Colonoscopy 1970Colorectal Cancer Ogqsawojp98/03/1971FIT-DNA (Cologuard)1970FIT 1970HIV Zhsegvgwr44/03/1971Lipid Panel1970 8857Yzpzchjavpgxq69/03/1971 Yearly Adult Dfjjqcbx36/03/1971MMR Vaccines (1 of 1 - Standard series)12/24/1971 Diabetes Uhoiajnsf54/03/1989Hepatitis C Mxqwylexv84/03/1989Hepatitis B Vaccines (1 of 3 - 19+ 3-dose series)1989DTaP/Tdap/Td Vaccines (1 - Tdap)1992 PSA Prostate Cancer Ayozwgvey61/03/2021neumococcal Vaccine (1 of 1 - PCV) 2020Zoster Vaccines (1 of 2)2020Influenza Vaccine (#1)2025 COVID-19 Vaccine (1 - 2024- season)2025HIB VaccinesAged OutNo longer eligible based on patient's age to complete this topicHPV VaccinesAged OutNo longer eligible based on patient's age to complete this topicHepatitis A VaccinesAged OutNo longer eligible based on patient's age to complete this topic IPV VaccinesAged OutNo longer eligible based on patient's age to complete this topicMeningococcal VaccineAged OutNo longer eligible based on patient's age to complete this topicRotavirus VaccinesAged OutNo longer eligible based on patient's age to complete this topic Insurance * Guarantor: Guy ArmijoAccount TypeRelation to PatientDate of BirthPhone Billing AddressPersonal/FzxpefXtzt03/03/1971 [facility] [place] [address] Care Teams Team MemberRelationshipSpecialtyStart DateEnd Date Marguerite Degroot DO [address] [place] [address] PCP - GeneralFamily Ixvevywn89/24/23
--- OUTSIDE RECORDS SUMMARY | 2025-08-13 11:21 | XMS_ITS | Clinical Summary ---
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 Automatic Name Role Phone Marguerite Degroot MD Primary Care Provider [phone] Allergies No known active allergies Medications MedicationSigDispense QuantityRefillsLast FilledStart DateEnd DateStatus tiotropium-olodaterol (Stiolto Respimat) 2.5-2.5 MCG/ACT aerosol solution inhaler 1 (one) time each day at the same time.07/12/2023ctive Active Problems ProblemNoted DateDiagnosed DateAge-related nuclear cataract of left eye 08/31/2023 Family History Medical HistoryRelationNameCommentsCataractsMotherDiabetesMotherRelationName StatusCommentsMother Social History Tobacco UseTypesPacks/DayYears UsedDateSmoking Tobacco: Every DayCigarettes Tobacco Cessation:Ready to Q uit: No; Counseling Given: Yes Sex and Gender InformationValueDate RecordedSex Assigned at BirthNot on file Legal FetAalv2901/04/2023 11:25 PM EDTGender IdentityNot on fileSexual Orientation Not on file Plan of Treatment Not on file Insurance * Guarantor: Guy ArmijoAccount TypeRelation to PatientDate of BirthPhone Billing AddressPersonal/MyrqaqBpwm85/03/1971 [facility] [place] [address] Care Teams Team MemberRelationshipSpecialtyStart DateEnd Date Marguerite Degroot MD PCP - GeneralFamily Cfjbsyyp46/9/23
--- OUTSIDE RECORDS SUMMARY | 2025-08-13 11:22 | XMS_ITS | CCD ---
Author Organization [facility] Care Team Providers Care Auditor In Charge Name Role Phone Anabell Degroot Primary Care [...] DEGROOT Primary Care Unavailable Medications Current Medications MedicationDrug Class(es)DatesSig (Normalized)Sig (Original)albuterol HFA 90 mcg/inh MDI (8 sources)Start: 13-83-5103alzl 180 ug by inhalation every two hoursalbuterol HFA 90 mcg/inh MDI 180 mcg, 2 puff(s), Inhalation, q2hr Shortness of breath or wheezing, 8.5 gm, Refill(s) 0, [facility], 191, cm, 10/06/21 9:14:00 EST, Height/Length Dosing, 100, kg, 10/06/21 9:14:00 EST, Weight Dosing Start Date: 10/11/21 Status: Orderedapixaban 5 mg oral tablet (16 sources)Factor Xa InhibitorStart: 53-34-1065fmjh 1 tablet by mouth twice dailyEliquis 5 mg oral tablet 5 mg = 1 tab(s), Oral, BID, # 60 tab(s), Refills(s) 3, Pharmacy: [facility] 1985, 191, cm, 11/01/21 13:08:00 EST, Height/Length Dosing, 97.2, kg, 11/01/21 13:07:00 EST,Weight Dosing Start Date: 11/01/21 Status: Ordereddexamethasone 6 mg oral tablet (8 sources)CorticosteroidStart: 79-03-7237nxzj 1 tablet by mouth once daily dexamethasone 6 mg oral tablet 6 mg = 1 tab(s), Oral, Daily, # 4 tab(s), Refills(s) 0, Pharmacy: [facility], 191, cm, 10/06/21 9:14:00 EST, Height/Length Dosing, 100, kg, 10/06/21 9:14:00 EST, Weight Dosing Start Date: 10/11/21 Status: Orderedibuprofen 400 mg oral tablet (9 sources)Nonsteroidal Anti-inflammatory DrugStart: 85-84-5306lukl 400 mg by mouth every six hours as needed for painibuprofen 400 mg, Oral, q6hr, PRN as needed for pain, Refills(s) 0 Start Date: 11/01/21 Status: OrderedIbuprofen CAPS TAKE 4 CAPSULE Daily Quantity: 0 Refills: 0 Ordered: 27-Jun-2023 DO Active Completed/Discontinued Medications MedicationDrug Class(es)DatesSig (Normalized)Sig (Original)aspirin 81 mg delayed release oral tablet (1 source)Platelet Aggregation Inhibitor, Nonsteroidal Anti-inflammatory Drug Start: 51-76-8521rejz 1 tablet by mouth once dailyAspirin 81 MG Oral Tablet Delayed Release TAKE 1 TABLET DAILY. Quantity: 90 Refills: 3 Ordered: 27-Jun-2023 Guillermina Goldstein MD Start : 27-Jun-2023 Activeregadenoson (Lexiscan) injection 0.4 mg (2 sources)Start: 08-15-2023 End: 07-66-5370htqsdjuuvjy (Lexiscan) injection 0.4 mg Problems Active Problems Problem ClassificationProblemDateDocumented DateEpisodic/ChronicChronic obstructive pulmonary disease and bronchiectasis (10 sources)Chronic obstructive lung disease; Translations: [Chronic obstructive pulmonary disease, unspecified]Onset: 561794-80-6721LhznbygLqocggt ulcer of skin (5 sources)Non-pressure chronic ulcer of other part of left foot with fat layer exposed; Translations: [N-PRS ULCR OTH PRT LT FT FAT EXPOS]Onset: 05-24-2022 ChronicDiabetes mellitus without complication (1 source)Hyperglycemia, unspecified; Translations: [HYPERGLYCEMIA UNSPECIFIED] Onset: 08-07-8721LthpefhtLhqrjhbof of lipid metabolism (9 sources)Hypercholesterolemia; Translations: [Hyperlipidemia]26-41-4984Fxgkhrh Other circulatory disease (5 sources)Other specified peripheral vascular diseases; Translations: [OTH SPEC PERIPHERAL VASC DISEASES]Onset: 19-00-7865HyixioiOdsti circulatory disease (3 sources)Femoral bruit; Translations: [Other symptoms involving cardiovascular system]64-76-7980PklvlihhHmunk lower respiratory disease (3 sources)Disorder of lung; Translations: [Other disorders of lung]Onset: 42-97-3516HsmmwihfLxouz non-traumatic joint disorders (1 source)Other specified arthritis, unspecified site; Translations: [OTHER SPECIFIED ARTHRITIS UNS SITE]Onset: 52-10-9933RhfjuhyNhbfe nutritional; endocrine; and metabolic disorders (1 source)Overweight in adulthood with body mass index of 25 or more but less than 30; Translations: [Overweight]EpisodicOther skin disorders (1 source)Epidermal cyst; Translations: [EPIDERMAL CYST]Onset: 07-06-2022 EpisodicOther skin disorders (1 source)Corns and callosities; Translations: [CORNS AND CALLOSITIES]Onset: 75-80-8518BupycxpkTwom and subcutaneous tissue infections (1 source)Other specified local infections of the skin and subcutaneous tissue; Translations: [OTH SPEC LOC INFECT SKIN SUBQ TISS]Onset: 73-44-3530Zriofotu Substance-related disorders (10 sources)Smoker; Translations: [Nicotine dependence, cigarettes, uncomplicated]Onset: 242803-76-8402AjzidekAqxfsuk on above:Added secondary to documentation in Social History.1-2 PACKS DAILY;Superficial injury; contusion (5 sources)Blister (nonthermal), left foot, sequela; Translations: [BLISTER NONTHERMAL LT FOOT SEQUELA]Onset: 32-25-6804Bkqslgje Past or Other Problems Problem ClassificationProblemDateDocumented DateEpisodic/ChronicHeart valve disorders (5 sources)Heart murmur; Translations: [Undiagnosed cardiac murmurs]Onset: 782442-53-5056XhizxofuGuhwd circulatory disease (2 sources)Other specified symptoms and signs involving the circulatory and respiratory systems; Translations:[Other specified symptoms and signs involving the circulatory and respiratory systems]Onset: 73-51-8477ZihmqqigQxudx screening for suspected conditions (not mental disorders or infectious disease) (3 sources)Electrocardiogram abnormal; Translations: [Nonspecific abnormal electrocardiogram [ECG] [EKG]]Onset: 36-52-6878OssrdmkzMfpzzauhbmbk (3 sources)cyst removed( Confirmed )77-84-7924Plwzsvnszmmi (5 sources)cyst undedzk68-53-5300 Results Test NameValueInterpretationReference RangeFacilityConsent for Treatmenton 30-64-7657Utfnnbm for [id number]#1.00TIFF [facility] HospitalOncology Progress Noteon 93-70-9293Bpubiyew Progress NotePatient: CHAKA DE LEÓN Age: 52 years Sex: Male [...] He was prescribed Eliquis at [facility] from [facility]. He also has a history of some [...] overal grwoing very slowly since 2018 now 31j25hb no new complaints. / 08/30/23 doing well. [...] Problem list: All Problems Smoker / IMO 365749 / Confirmed Added secondary to documentation in Social History. Resolved: COPD / SNOMED CT 99704316 Resolved: cyst removed Resolved: Hypercholesterolemia / SNOMED CT 23128787 Canceled: Tobacco use / SNOMED CT [id number] Added secondary to social history documentation. Histories Past Medical History: Resolved COPD (40575202): Resolved. cyst removed: Resolved. Hypercholesterolemia (66948112): Resolved. Family History: No family history items have been selected or recorded. Procedure history: cyst removed. Social History Social & Psychosocial Habits Alcohol 08/30/2023 Risk Assessment: Denies Alcohol Use Comment: denies - 08/19/2019 09:22 - Lias Fajardo RN Substance Abuse 08/30/2023 Risk Assessment: [...] . Impression and Plan Diagnosis Pulmonary embolus (XPD57-GQ I26.99, Working, Medical). COVID-19 with pulmonary comorbidity (YVA29-WD U07.1, Working, Medical). .. Pulmonary Embolus d/t COVID completed 6 mos El (more content not included)...[facility] HospitalOutside Progress Noteon 21-05-0880Yfuywoh Progress Note [id number]#1.00TIFFNormalLakehealth Beachwood Medical CenterUS Heart TransthoracicOrdered By: Guillermina Goldstein on 79-19-3582TF A4C EF 74.7[facility] Work Phone: [facility] Work Phone: US Heart Transthoracicon 08-18-[address], [address] [place] [address] TRANSTHORACIC ECHOCARDIOGRAM REPORT Patient Name: CHAKA Robbins Physician: [id number] Guillermina Goldstein MD, [facility] Study Date: 08/15/2023 Ordering Provider: [id number] GUILLERMINA GOLDSTEIN MRN/PID: [id number] Fellow: Nurse: Date of /Age: 3 1970 / 52 years 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 The mean gradient of the aortic valve is 39.0 mmHg. Aortic valve is probably bicuspid with increased velocity up to 450 cm/s corresponding to a peak pressure gradient of 90 mmHg and a mean pressure gradient of 40 mmHg, these findingsare consistent with severe aortic stenosis. Trivial regurgitation is noted, aortic valve area measured 0.9 cm . Mitral Valve: The mitral valve is mildly thickened. There is no evidence of mitral valve regurgitation. Tricuspid Valve: The tricuspid valve is structurally normal. There is trace tricuspid regurgitation. Pulmonic Valve: The pulmonic valve is structurally normal. There is no indication of pulmonic valveregurgitation. Pericardium: There is no pericardial effusion noted. [...] up to 450 cm/s corresponding to a peakpressure gradient of 90 mmHg and a mean pressure gradient of 40 mmHg, these findings are consistentwith severe aortic stenosis. 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 The mean gradient of the aortic valve is 39.0 mmHg. Aortic valve is probably bicuspid with increased velocity up to 450 cm/s corresponding to a peak pressure gradient of 90 mmHg and a mean pressure gradient of 40 mmHg, these findingsare consistent with severe aortic stenosis. Trivial regurgitation is noted, aortic valve area measured 0.9 cm . Mitral Valve: The mitral valve is mildly thickened. There is no evidence of mitral valve regurgitation. Tricuspid Valve: The tricuspid valve is structurally normal. There is trace tricuspid regurgitation. Pulmonic Valve: The pulmonic valve is structurally normal. There is no indication of pulmonic valveregurgitation. Pericardium: There is no pericardial effusion noted. [...] up to 450 cm/s corresponding to a peakpressure gradient of 90 mmHg and a mean pressure gradient of 40 mmHg, these findings are consistentwith severe aortic stenosis. Trivial regurgitation is noted, [...] mmHg PIEDV: 2.00 m/s PADP: 19.0 mmHg [id number] Guillermina Goldstein MD, [facility] Electronically signed on 08/18/2023 at 2:33:32 PM Final [facility] Work Phone: Vascular US PVR without exerciseon 08-18-[address], [place] [address] Vascular Lab Report VASC US PVR WITHOUT EXERCISE Patient Name: CHAKA Robbins Physician: [id number] Guillermina Goldstein MD, FACC Study Date: 08/15/2023 Ordering Provider: [id number] GUILLERMINA GOLDSTEIN MRN/PID: [id number] Fellow: Technologist: Heaven Simmons RD, RVT Date of /Age: 3 1970 / 52 years Technologist 2: Gender: M Admission Status: Outpatient Location Performed: [facility] Diagnosis/ICD: Other specified symptoms and signs involving the circulatory and respiratory systems-R09.89 Indication: Left Femoral Artery Bruit, Abnormal EKG, POC-Dr. Robbins for Left Foot Ulcer/Date Pending, COPD, Hyperlipidemia, 2/6 Systolic Murmur, Tobacco Abuse, Overweight CONCLUSIONS: Bilateral Lower PVR: No evidence of arterial occlusive disease bilaterally in the lower extremitiesat rest. Right Lower PVR: Biphasic flow is [...] Left Brachial Pressure 112 mmHg 101 mmHg [id number] Guillermina Goldstein MD, FACC Final Guillermina Manzo MD - 08/18/[address], Suite [facility], [place] [address] Vascular Lab Report VASC US PVR WITHOUT EXERCISE Patient Name: CHAKA Robbins Physician: Elkin Goldstein MD, FACC Study Date: 08/15/2023 Ordering Provider: [id number] GOLDSTEIN MRN/PID: [id number] Fellow: Technologist: Heaven Simmons RDCS, T Date of /Age: 3 1970 / 52 years Technologist 2: Gender: M Admission Status: Outpatient Location Performed: [facility] Diagnosis/ICD: Other specified symptoms and signs involving the circulatory and respiratory systems-R09.89 Indication: Left Femoral Artery Bruit, Abnormal EKG, POC-Dr. Robbins for Left Foot Ulcer/Date Pending, COPD, Hyperlipidemia, 2/6 Systolic Murmur, Tobacco Abuse, Overweight CONCLUSIONS: Bilateral Lower PVR: No evidence of arterial occlusive disease bilaterally in the lower extremitiesat rest. Right Lower PVR: Biphasic flow is [...] Left Brachial Pressure 112 mmHg 101 mmHg [id number] Guillermina Goldstein MD, FACC Final [facility] Work Phone: [facility] PVR without exerciseOrdered By: Guillermina Goldstein on 75-61-4265BmhgnaratsLicking Memorial Hospital Work Phone: nm Heart Perfusion W stress and W radionuclide Robina 82-14-0533Aqiotx Shelf.comiscan Caribe Spectrum Holdingsview cardiac perfusion stress test. No evidence of ischemia or myocardial infarction by perfusion imaging. Normal left ventricular systolic function, ejection fraction 64%. No previous studies are available for comparison. Signed by: Guillermina Goldstein 08/15/2023 6:10 PM Dictation workstation: [id number] By: Guillermina Goldstein and Giannuzzi Michael STUDY: MYOCARDIAL PERFUSION STRESS TEST WITH LEXISCAN Performing facility: [facility], [address] [place] [address], [address], [address] Provider: Guillermina Goldstein MD, FACC PCP: Dr. Daniel Degroot Supervising provider: Guillermina Goldstein MD, FACC INDICATION: Abn EKG Pre-operative risk assessment for Toe surgery scheduled at [place] on TBD. HISTORY: Gender: M; Age: 52 y/o ; Height: HT 190.5 cm cm; Weight: WT 92.987 kg kg. Abnormal EKG; High Cholesterol; COPD; Currently smoking. COMPARISON: No comparison. ACCESSION NUMBER(S): [id number] ORDERING CLINICIAN: GUILLERMINA GOLDSTEIN TECHNIQUE: ONE DAY [...] There was evidence of apical attenuation artifact. [facility] HOSPITALODALGuillermina Goldstein MD - 08/15/2023 Interpreted By: Guillermina Goldstein and Giannuzzi Michael STUDY: MYOCARDIAL PERFUSION STRESS TEST WITH LEXISCAN Performing facility: [facility], [address] [place] [address], [address], [place] [address] [facility] Provider: Guillermina Goldstein MD, FACC PCP: Dr. Daniel Degroot Supervising provider: Guillermina Goldstein MD, FACC INDICATION: Abn EKG Pre-operative risk assessment for Toe surgery scheduled at [place] on TBD. HISTORY: Gender: M; Age: 52 y/o ; Height: HT 190.5 cm cm; Weight: WT 92.987 kg kg. Abnormal EKG; High Cholesterol; COPD; Currently smoking. COMPARISON: No comparison. ACCESSION NUMBER(S): [id number] ORDERING CLINICIAN: GUILLERMINA GOLDSTEIN TECHNIQUE: ONE DAY [...] Guillermina Goldstein 08/15/2023 6:10 PM Dictation workstation: [id number] [facility] Work Phone: Radiology Study observation (narrative)[facility] Work Phone: nm Heart Perfusion W stress and W radionuclide IV Ordered By: Guillermina Goldstein on 58-80-5254VyutlzzvotLicking Memorial Hospital Work Phone: NUCLEAR STRESS TESTon 44-90-7721QIHMSCX STRESS TEST Interpreted By: Guillermina Goldstein, and Shalom Correia STUDY: MYOCARDIAL PERFUSION STRESS TEST WITH LEXISCAN Performing facility: [facility], [address] [place] [address], [address], [address] Provider: Guillermina Goldstein MD, FACC PCP: Dr. Daniel Degroot Supervising provider: Guillermina Goldstein MD, FACC INDICATION: Abn EKG Pre-operative risk assessment for Toe surgery scheduled at [place] on TBD. HISTORY: Gender: M; Age: 52 y/o ; Height: HT 190.5 cm cm; Weight: WT 92.987 kg kg. Abnormal EKG; High Cholesterol; COPD; Currently smoking. COMPARISON: No comparison. ACCESSION NUMBER(S): [id number] ORDERING CLINICIAN: GUILLERMINA GOLDSTEIN TECHNIQUE: ONE DAY [...] Guillermina Goldstein 08/15/2023 6:10 PM Dictation workstation: [id number] Children's Hospital Comment on above:Order Comment: Rad Selected: [facility] to schedule and to readTRANSTHORACIC ECHO (TTE) COMPLETEon 09-66-1346SAOOMCKSPEPFH ECHO (TTE) [address], [address] [place] [address] TRANSTHORACIC ECHOCARDIOGRAM REPORT Patient Name: CHAKA DE LEÓN Reading Physician: [id number] Goldstein MD, [facility] Study Date: 08/15/2023 Ordering Provider: [id number] GOLDSTEIN MRN/PID: [id number] Fellow: Nurse: Date of /Age: 3 1970 / 52 years 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 The mean gradient of the aortic valve is 39.0 mmHg. Aortic valve is probably bicuspid with increased velocity up to 450 cm/s corresponding to a peak pressure gradient of 90 mmHg and a mean pressure gradient of 40 mmHg, these findingsare consistent with severe aortic stenosis. Trivial regurgitation is noted, aortic valve area measured 0.9 cm???. Mitral Valve: The mitral valve is mildly thickened. There is no evidence of mitral valve regurgitation. Tricuspid Valve: The tricuspid valve is structurally normal. There is trace tricuspid regurgitation. Pulmonic Valve: The pulmonic valve is structurally normal. There is no indication of pulmonic valveregurgitation. Pericardium: There is no pericardial effusion noted. [...] up to 450 cm/s corresponding to a peakpressure gradient of 90 mmHg and a mean pressure gradient of 40 mmHg, these findings are consistentwith severe aortic stenosis. Trivial regurgitation is noted, [...] mmHg PIEDV: 2.00 m/s PADP: 19.0 mmHg [id number] Guillermina Goldstein MD, [facility] Electronically signed on 08/18/2023 at 2:33:32 PM Final [facility] HospitalVAS US PVR WITHOUT EXERCISEon [id number] US PVR WITHOUT EXERCISENorth [address], [place] [address] Vascular Lab Report [facility] US PVR WITHOUT EXERCISE Patient Name: CHAKA CHATMANCharles Itzel Physician: [id number] Guillermina Goldstein MD, [facility] Study Date: 08/15/2023 Ordering Provider: [id number] GUILLERMINA GOLDSTEIN MRN/PID: [id number] Fellow: Technologist: Heaven Simmons RD, T Date of /Age: 3 1970 / 52 years Technologist 2: Gender: M Admission Status: Outpatient Location Performed: [facility] Diagnosis/ICD: Other specified symptoms and signs involving the circulatory and respiratory systems-R09.89 Indication: Left Femoral Artery Bruit, Abnormal EKG, POC-Dr. Robbins for Left Foot Ulcer/Date Pending, COPD, Hyperlipidemia, 2/6 Systolic Murmur, Tobacco Abuse, Overweight CONCLUSIONS: Bilateral Lower PVR: No evidence of arterial occlusive disease bilaterally in the lower extremitiesat rest. Right Lower PVR: Biphasic flow is [...] Left Brachial Pressure 112 mmHg 101 mmHg [id number] Guillermina Goldstein MD, FACC Final [facility] HospitalVascular US PVR without exerciseon 51-02-3758Ypfwkibgm Study observation (narrative)[facility] Work Phone: CT Chest w/ Contraston 72-68-7896JK Chest w/ Contrast Exam Date/Time: 08/10/2023 09:25 [...] Contrast: Isovue 300 Contrast amount in ml's: 100NoMagruder HospitalConsent for Treatmenton 96-56-2284Thzweht for Treatment [id number]#1.00TIFSelect Medical Specialty Hospital - CincinnatiOutside Progress Noteon 93-99-6193Ngwhkgg Progress Note [id number]#1.00[facility] Medical CenterInsurance Correspondenceon 40-11-4865Qzctmvqhs Correspondence [id number]#1.00[facility]itus Medical CenterOffice Visit (Cardiology)on 84-09-3251Putyci-up visitDiagnoses/Problems Assessed Pre-operative cardiovascular examination (V72.81) (Z01.810) Cardiac [...] LAB PVR MULU only; Status:Hold For - Scheduling,Retrospective Authorization; Requested for:27Jun2023; Abnormal EKG, Femoral bruit, Pre-operative cardiovascular examination US UP/Low Ext PVR; Status:Hold For - Scheduling,Retrospective Authorization; Requested for:27Jun2023; Radiologist to Determine Optimal Study : Y What are the patient's signs and symptoms? : poc Abnormal EKG, Hyperlipidemia Start: Aspirin 81 MG Oral Tablet Delayed Release; TAKE 1 TABLET DAILY Abnormal EKG, Pre-operative cardiovascular examination NM Cardiac Stress/Rest Nuclear Med Order; Status:Hold For - Scheduling,Retrospective Authorization; Requested for:27Jun2023; Radiologist to Determine Optimal Study : Y What are the patient's signs and symptoms? : poc Cardiac murmur, Pre-operative cardiovascular examination Echocardiogram; Status:Hold For - Scheduling,Retrospective Authorization; Requested for:27Jun2023; Hyperlipidemia Lipid Panel; Status:Active - Retrospective Authorization; Requested for:27Jun2023; Overweight with body mass index (BMI) of 25 to 25.9 in adult Healthy Weight Tips; Status:Complete - Retrospective Authorization; Done: 27Jun2023 Some eating tips that can help you lose weight.; Status:Complete - Retrospective Authorization; Done: 27Jun2023 SocHx: Current smoker You need to stop smoking. Though it is not easy, more than half of all adult smokers have quit. We encourage you to write down all the reasons you should quit smoking and set a quit date for yourself. Ask us how we can help. You may also call 2-173-LCIWNOW for free resources and assistance.; Status:Complete - Retrospective Authorization; Done: 27Jun2023 Tobacco Use Screening; Status:Complete; Done: 27Jun2023 Patient Instructions Please bring all medicines, vitamins, [...] This is scheduled with Dr. Robbins in [place]. The patient is not a very good historian but confesses for being heavy tobaccouser of more than 2 packs daily for years. He is labeled as having emphysema and has history of juan re hyperlipidemia on medical therapy which he stopped [...] patient does not utilize oxygen at home. Assessment/recommendations: 1?patient need cardiac risk stratification before minor [...] perfusion study, echocardiogram to (more content not included)...NormalUH TouchworksTobacco Screening.on 25-04-6604Gwfy risk assessmenta) No falls within the last yearProv[facility] Hospital HeartLineaQuattro 600 DO Work Phone: Tobacco use status CPHSa) YesProvidence Mount Carmel Hospital HeartThe Poker Barrel Mchenry 600 DO Work Phone: Tobacco Screening.YesProvidence Mount Carmel Hospital 1stdibsMchenry 600 DO Work Phone: Physician Orderon 37-61-3529Fdmtdeyhc OrderScheduled in [place] on 06/29. Spoke with Monika at [employer] and let her know I got patient scheduled. [id number]#1.00CD:127NoMagruder HospitalXR FOOT LT MIN 3 VIEWSon 25-49-1929FY FOOT LT MIN 3 VIEWSSTUDY: XR FOOT LT MIN 3 VIEWS HISTORY: [...] Electronically authenticated by: ELHAM GOODE Date: 2022-04-11 16:53[facility] Vital Signs Date TimeVital SignValuePerforming LpaimmxhxRzorgkqn25-57-7839 13:58-0500Heart rate79 /minGreene [facility]11-08-2023 13:58-0500 SaO2% (BldA) [Mass fraction]97 %[facility] 08-30-2023 13:58-0500Body ifzzlxrrjqr38.88 [degF][facility]11-08-2023 13:57-0500Diastolic blood huwslwsz40 mm[Hg][facility]11-08-2023 13:57-0500Mean blood nvczwwky17 mm[Hg][facility]11-08-2023 13:57-0500 Systolic blood zxjtifdg714 mm[Hg][facility] 08-30-2023 13:56-0500Respiratory rate14 /minGreene Memorial Hospital10-24-2023 11:20-0400Body bplmiw828.[address] [place], [place] [address]10-24-2023 11:20-0400Body mass index (BMI) [Ratio]25.62 kg/m2Ely 1 [facility]10-24-2023 11:20-0400Body okdqxm27.99 kgEly 1 [facility]10-24-2023 11:20-0400Diastolic blood nhybaann46 mm[Hg]Randee 1[facility]10-24-2023 11:20-0400Heart rate73 /minEly 1[facility]10-24-2023 11:20-0400Systolic blood wcthokmv170 mm[Hg]Randee 1[facility]10-24-2023 08:42-0400 Body gdarnm108.5 cmEly 2[facility]10-24-2023 08:42-0400 Body mass index (BMI) [Ratio]25.62 kg/m2Ely 2[facility] 08-15-2023 08:42-0400Body odpkid18.99 kgEly 2[facility] 08-15-2023 08:42-0400Diastolic blood cbhymlnp16 mm[Hg]Randee 2[facility]10-24-2023 08:42-0400Systolic blood kucgmgry142 mm[Hg]Randee 2 [facility]09-05-2023 11:21-0400Diastolic blood bjcsahez11 mm[Hg]Anabell Degroot Work Phone: [phone]-[facility] 600 DO Work Phone: [phone] 11:21-0400Systolic blood nybqwbex98 mm[Hg] Anabell Sampson Degroot Work Phone: [phone]-OfeuyCanby Medical Centerk 600 DO Work Phone: 1(574) 148-191309-05-2023 11:18-0400Body ebmapi323.5 cmElystony Degroot Work Phone: [phone]-IqvykRidgeview Sibley Medical Centerwalk 600 DO Work Phone: 1(568) 501-614709-05-2023 11:18-0400Body mass index (BMI) [Ratio] 25.62 kg/n9BngceAnabell Degroot Work Phone: [phone]-Nsdyx [facility] 600 DO Work Phone: 1(594) 363-894209-05-2023 11:18-0400Body surface area Derived from formula2.22 b7WctgmAnabell Degroot Work Phone: [phone]-Sglya [facility] 600 DO Work Phone: 1(455) 900-321309-05-2023 11:18-0400Body vjrifv96.99 kgAnabell Degroot Work Phone: mp477-4986AM-TegnwCanby Medical Centerk 600 DO Work Phone: 1(120) 563-767209-05-2023 11:18-0400Diastolic blood yyyuszms74 mm[Hg] Anabell Degroot Work Phone: [phone]-ZbedyCanby Medical Centerk 600 DO Work Phone: 1(481) [phone] 11:18-0400Heart rate64 /minElyse Sampson Degroot Work Phone: 1([phone]) [phone]-UcwpxFairview Range Medical Centerk 600 DO Work Phone: 1(500) 560-194009-05-2023 11:18-0400Systolic blood uqvfoplc765 mm[Hg] Anabell Degroot Work Phone: [phone]-[facility]stftLakes [facility] 600 DO Work Phone: 1(653) 709-815311-03-2022 10:30-0400[facility] 10:30-0400Body tiqioxhgoia89.24 [degF][facility]11-03-2022 10:30-0400 BP/Pulse [facility] 08-25-2022 10:30-0400Diastolic blood mgayrvlz75 mm[Hg][facility]11-03-2022 10:30-0400Heart rate75 /[facility]2022 10:30-0400Mean blood zohnmzzp42 mm[Hg] Quintin [facility]11-03-2022 10:30-0400Respiratory rate19 /minQuintin [facility]11-03-2022 10:30-0400 SaO2% (BldA) [Mass fraction]95 %[facility] 08-25-2022 10:30-0400Systolic blood tburhoax840 mm[Hg][facility]04-11-2022 12:33-0400Blood Pressure LocationAdwoa Monahan [address]04-11-2022 12:33-0400Body trbsghoptnx71.7 [degF]Adwoa Monahan [address]04-11-2022 12:33-0400 BP/Pulse Patient PositionAdwoa Monahan [address]04-11-2022 12:33-0400 Diastolic blood vzgdurdh74 mm[Hg]Adwoa Monahan [address]04-11-2022 12:33-0400Heart rate91 /Staci Monahan [address]04-11-2022 12:33-0400Mean blood voayaiiz62 mm[Hg]Adwoa Monahan [address] [place], [place] 9962704-11-2022 12:33-0400 Respiratory rate17 /Staci Monahan [address] [place], [place] 9962704-11-2022 12:33-8946JnT7% (BldA) [Mass fraction]96 %Adwoa Monahan [address] [place], [place] 9962704-11-2022 12:33-0400 Systolic blood ojmizsek964 mm[Hg]Adwoa Monahan [address] [place] [address] Encounters Encounter DateEncounter TypeCare ProviderFacilityStart: 09-05-2024 End: 13-16-4244Xsd-admission assessmentQuintin [facility] Start: 08-31-2023 End: 12-91-6034icrkjmxxmuISULSTXSG D ZALUIS ALBERTORoseann AvailableStart: 08-30-2023 End: 32-89-8847zbriuxvthvFmnsupc AdamowiczFacility:FTMCStart: 08-30-2023 End: 17-00-6864Zvyismu encounter procedureQuintin [facility] Start: 08-15-2023 End: 64-72-7978Tjtaxgbbes hospital visit by Eric Beavers [facility]: 08-[facility]2023 End: 54-52-4325Rdsgiwp encounter status[address] Work Phone: Start: 08-15-2023 End: 75-19-4121Ajarlwurri hospital visit by Eric Beavers Echo/Vasc Room 2[facility] CenterComment on above:Femoral bruitHeart murmur; Pre-operative cardiovascular examinationStart: 08-15-2023 End: 55-50-4042vbpmykcqtuCYMHDD M [facility] Healthtart: 08-15-2023 End: 08-11-7734Gncdhaxns for preprocedural cardiovascular examinationANABELL Braden [facility] Rehabilitationtart: 08-10-2023 End: 75-75-9513badxulyoxsYjvdgrj AdamowiczFacility:FTMCStart: 08-10-2023 End: 87-45-7800Qxdloug encounter procedureQuintin [facility] Start: 46-56-1447Rvddoy consultation new/estab patient 60 minElyse C Mikayla Work Phone: [phone]-Tymwu [facility] 600 DO Work Phone: Start: 40-97-6543dcjlnkhnzeGfJessica Goldstein Facility:[address]Naedr: 78-80-6150pkgexzmtdpJpJessica Logan AguilaabdulazizFacility:UHCStart: 08-25-2022 End: 61-12-7814Drhhwjz encounter procedureQuintin [facility] Start: 08-16-2022 End: 18-00-9740Usoqsun encounter procedureAdwoa Gonzales Taniya [facility] Start: 06-20-2022 End: 74-98-0360ipwmnmrqmiVQRDC D HIGHLANDERFacility:F5Oxivz: 05-24-2022 End: 21-93-7490jbfswmhwgqJTJDZ D HIGHLANDERFacility:S7Nnhwt: 04-26-2022 End: 97-60-4886pacqrnlafvDK ROBIN M RUGGLESFacility:B6Lkllg: 04-11-2022 End: 55-21-7872tynxeegaepYV ROBIN Michael RUGGLESFacility:B6Qoqik: 01-31-2022 End: 19-84-8054Gepvqew encounter procedureAdwoa Pricehope [facility] Start: 01-28-2022 End: 12-71-0658Qqpvscf encounter procedureTransylvania Regional Hospitalgaston [facility] Start: 01-28-2022 End: 23-59-9079Lbu-admission assessmentCristopher Stevenson [facility] Start: 91-41-2617xvifmqwanlAM ROBIN M RUGGLESFacility:H1 Start: 08-02-2021 End: 90-20-8504kfpzodimgaFCIMBCR O CLOUGHERTYFacility:C1Gaiyojp encounter status Anabell Degroot Work Phone: [phone]-EozciLakeview Hospital 600 DO Work Phone: Procedures DateProcedureProcedure DetailPerforming ClinicianStart: 36-66-8838NIXZFZO STRESS TESTELYSE TINKERStart: 49-49-4721Ox strs tst xers&/or rx cont ecg trcg only Guillermina Goldstein MD Work Phone: Start: 04-30-8564AXGK US PVR WITHOUT EXERCISEELYSE TINKERStart: 30-30-7823MQCVVIKANLNJX ECHO (TTE) COMPLETEELYSE TINKERStart: 73-99-8481Chr-invasive physiologic study extremity 3 Marilin Goldsteni MD Work Phone: Start: 57-38-9482Zehb tthrc r-t 2d w/wom-mode compl spec&colr Michael Goldstein MD Work Phone: cyst removedTimothy AdamowiczTonsillectomyElyse C Mikayla Work Phone: Plan of Treatment DateCare ActivityDetailAuthorStart: 61-08-4769UCH, Provider: Guillermina Goldstein, Status: Pen, Time: 11:30 AMFUV, Provider: Guillermina Goldstein, Status: Pen, Time: 11:30 [facility]akeview [facility] 600 DO Work Phone: Start: 09-19-2023 End: 94-41-8761Jsrvngd encounter ckaoniumg17/28/2023 11:30 AM EST Office Visit [place] [address] [place] [address] Guillermina Goldstein MD [address] [facility] 2, [address] [place] [address] [facility] HospitalStart: 74-20-6818FGK, Provider: ARIANNA MCADAMS ULTRASOUND ,[id number], Status: Pen, Time: 9:45 AMPVR, Provider: ARIANNA MCADAMS ULTRASOUND ,[id number], Status: Pen, Time: 9:45 AMMP-[facility] 600 DO Work Phone: Start: 76-24-7218XEMX, Provider: ARIANNA HHVI ULTRASOUND 01,[id number], Status: Pen, Time: 8:45 AMECHO, Provider: ARIANNA HHVI ULTRASOUND 01,[id number], Status: Pen, Time: 8:45 AMMP-[facility] 600 DO Work Phone: Start: 60-59-2100UNJYHF NUC, Provider: ARIANNA HHVI NUCLEAR 01,[id number], Status: Pen, Time: 8:00 AMSTRESS NUC, Provider: ARIANNA HHVI NUCLEAR 01,[id number], Status: Pen, Time: 8:00 AM[facility] 600 DO Work Phone: Start: 13-54-1452Nnyhdppuz vaccinationInfluenza Vaccine (#1)[facility]: 65-40-9520Olzlmc Vaccines (1 of 2)Zoster Vaccines (1 of 2)[facility]: 1992 DTaP/Tdap/Td Vaccines (1 - Tdap)DTaP/Tdap/Td Vaccines (1 - Tdap)[facility]: 82-01-7555Cttemjsse A Vaccines (1 of 2 - Risk 2- dose series)Hepatitis A Vaccines (1 of 2 - Risk 2-dose series)[facility]: 21-52-8089Rqxrogak mellitus screeningDiabetes ScreeningUnCleveland Clinic [facility]: 00-65-1381Wgqeokdjb C screening Hepatitis C ScreeningUnCleveland Clinic [facility] Hospital: 1976 Pneumococcal Vaccine: Pediatrics (0 to 5 Years) and At-Risk Patients (6 to 64 Years) (1 - PCV)Pneumococcal Vaccine: Pediatrics (0 to 5 Years) and At-Risk Patients (6 to 64 Years) (1 - PCV)[facility]: 84-13-8247SLI Vaccines (1 of 1 - Standard series)MMR Vaccines (1 of 1 - Standard series)[facility]: 03-41-7884RWGPQ-19 Vaccine (#1) COVID-19 Vaccine (#1)[facility]: 64-80-1597Gbvimqikh B Vaccines (1 of 3 - 3-dose series)Hepatitis B Vaccines (1 of 3 - 3-dose series)[facility]: 52-93-8488QRW screeningHIV ScreeningMansfield Hospital: 18-60-0889Igaoe panelLipid PanelUnCleveland Clinic [facility]: 89-76-4101Rljibuiai for malignant neoplasm of colonUnCleveland Clinic [facility]: 04-75-3655Wdnuqf Adult PhysicalYearly Adult PhysicalUnLicking Memorial Hospital End: 17-89-0737FF Heart TransthoracicM[facility]ILLA [facility] Service Area Work Phone: Comment on above:Once for 1 Occurrences starting 08/15/2023 until 08/15/2023 End: 82-66-4264Jawmwile US PVR without exerciseMESILLA VALLEY HOSPITAL Service Area Work Phone: Comment on above:Once for 1 Occurrences starting 08/15/2023 until 08/15/2023 Payers DatePayer CategoryPayerPolicy [id number] [id number] 2..1.685706.3.57[id number] 2..1.979933.3.57[id number] 2..1.839176.3.57[id number] 2..1.392626.3.57[id number] 2..1.508764.3.57[id number] 2..1.690052.3.57[id number] 2.16.840.1.067261.3.57[id number] 2.16.840.1.223863.3.57[id number] 2.16.840.1.480901.3.579.2.32878-76-1650Lhomlee95781 2.16.840.1.749220.3.579.2.956703-47-4763Tgirxbc127909 2.16.840.1.211466.3.579.2.521165-54-3537Ojjwmwq777837 2.16.840.1.096088.3.579.[id number] 2.840.1.759052.3.579.2.377609-96-5236Qkygclc474943 2.0.1.057493.3.579.[id number] 2.0.1.881771.3.57[id number] 2..840.1.550897.3.57[id number] 2.0.1.660670.3.579.2.8532[id number] Social History DateTypeDetailFacilityTobaccoCigarettesOhiohealth Grady Memorial HospitalComment on above:1 ppdSex Assigned At BirthMalPremier HealthTobacco smoking statusNo Smoking Status EnteredOhiohealth Grady Memorial HospitalDaily caffeine consumptionDaily caffeine consumption-[facility] 600 DO Work Phone: Comment on above:1-2 PACKS DAILY;Tobacco smoking status NHISTobacco smoking consumption [facility] Work Phone: Start: 72-07-6318Vfz Assigned At BirthNot on file [facility] Work Phone: Start: 08-05-2023 End: 31-90-9952Rukfdjrh to SARS-CoV-2 (event)Not sureAs[facility] Clinical Notes 11-01-2021 to 11-28-2023 Note Date & VcuoCpcvDyzesamf64-20-4162 Evaluation + Plan note Future Scheduled Tests Radiology* CT Chest, Low Dose Screening 11/28/23 [facility] [id number] Hospital Discharge instructions Follow Up Care 08/26/2022 10:06:59 With:Quintin Vo Address: [address] [phone] Fax Business (1) When: Unknown Comments:f/u in [address] chest low dose screening prior to f/u in 1 year. If he talks to Dr. Degroot, she can order ct screening and do f/u and he will not need to see me. [facility]10-24-2022 Hospital Discharge instructions Follow Up Care 08/15/2022 13:08:07 With:Quintin Vo Address: [address] [phone] Fax Business (1) When: Unknown Comments:f/u with me or opal after ct ches with contrast in a year. [facility]01-10-2022 Hospital Discharge instructions Follow Up Care 11/01/2021 13:28:42 With:Quintin Vo Address: [address] [phone] Fax Business (1) When: Unknown Comments:finish Eliquis in JuneCT chest w/ contrast in 6mofollow-up with Dr. Dobbins in 6mo after scan [facility] HospitalEvaluation + Plan note Future Appointments Appointment Date:01/31/2022 12:30:00 PM Scheduled Provider:Taniya HENRY, Adwoa Gonzales Location:FT.ONCOLOGY Appointment Type:ONC Office Visit 15 (FT) [facility] HospitalEvaluation + Plan note Future Appointments Appointment Date:08/10/2022 12:30:00 PM Scheduled Provider:Quintin Vo DO Location:FT.ONCOLOGY Appointment Type:ONC Office Visit 15 (FT) Future Scheduled Tests Radiology* CT Chest w/ Contrast 08/02/22 [facility] HospitalEvaluation + Plan note Future Appointments Appointment Date:08/25/2022 10:15:00 AM Scheduled Provider:Quintin Vo DO Location:FT.ONCOLOGY Appointment Type:ONC Office Visit 30 (FT) [facility] + Plan note Future Scheduled Tests Radiology* CT Chest w/ Contrast 08/09/23 [facility]Evaluation + Plan note Future Appointments Appointment Date:08/30/2023 02:00:00 PM Scheduled Provider:Quintin Vo DO Location:FT.ONCOLOGY Appointment Type:ONC Office Visit 15 (FT) [facility] HospitalEvaluation + Plan note Future Scheduled Tests Radiology* CT Chest, Low Dose Screening 11/28/23 [facility] HospitalEvaluation [facility]* Diagnosis Femoral bruit documented in this encounter [facility] Work Phone: Evaluation note* Diagnosis Heart murmur Undiagnosed cardiac murmurs Pre-operative cardiovascular examination documented in this encounter [facility] Work Phone: Evaluation note* Diagnosis Femoral bruit documented in this encounter [facility] Work Phone: Evaluation note* Diagnosis Heart murmur Undiagnosed cardiac murmurs Pre-operative cardiovascular examination documented in this encounter [facility] Work Phone: Hospital course Narrative No data available for this section [facility] HospitalHospital Discharge instructions No data available for this section [facility] HospitalProgress note No data available for this section [facility] Summary Purpose Family History Unknown Family [...] This is scheduled with Dr. Robbins in [place]. The patient is not a very good [...] profile and address accordingly. Reason for Referral SpecialtyDiagnoses / ProceduresReferred By ContactReferred To ContactCardiology Diagnoses Heart murmur Pre-operative cardiovascular examination Procedures Transthoracic Echo (TTE) Complete KS ECHO TRANSTHORC R-T 2D W/WO M-MODE REC F-UP/LMTD KS DOP ECHOCARD COLOR FLOW VELOCITY MAPPING KS DOP ECHOCARD PULSE WAVE W/SPECTRAL F-UP/LMTD STD Guillermina Goldstein MD [address] [facility] 2, [facility] [address] [place] [address] Referral IDStatusReasonart DateExpiration DateVisits RequestedVisits [id number] Perform Procedure [id number] / ProceduresReferred By ContactReferred To ContactCardiology Diagnoses Femoral bruit Procedures Vascular US PVR without exercise Guillermina Goldstein MD [address] [facility] 2, [address] [place] [address] Referral IDStatusReasonLebanon Junction DateExpiration DateVisits RequestedVisits [id number] Perform Procedure Additional Source Comments (unrecognized sect ion and content) No Status Records FoundNo Status Records FoundNo Status Records FoundNo Status Records FoundNo Status Records FoundNo Status Records Found INFORMATION SOURCE (unrecogn ized section and content) DATE CREATED AUTHOR 07/19/2022 [facility] DATE CREATED AUTHOR AUTHOR'S ORGANIZ ATION 06/27/2023 [facility] DATE CREATED AUTHOR AUTHOR'S ORGANIZ ATION 06/28/2023 [employer] DATE CREATED AUTHOR AUTHOR'S ORGANIZ ATION 09/01/2023 [facility] DATE CREATED AUTHOR AUTHOR'S ORGANIZ ATION 09/04/2023 [facility] DATE CREATED AUTHOR AUTHOR'S ORGANIZ ATION 06/04/2024 [facility] Patient Care team informatio n (unrecognized section and content) Personnel Name: Anabell Degroot DO Address: Address: [address] [place], [place] [address] C, [address] [place], [place] [address] Team MemberRelationshipSpecialtyStart DateEnd Date Anabell Degroot DO [address] [facility] [address] [place] [address] PCP - General06/27/23Team MemberRelationshipSpecialtyStart DateEnd Date Anabell Degroot DO [address] [address] PCP - General06/27/23Team MemberRelationshipSpecialtyStart DateEnd Date Anabell Degroot DO PCP - General06/27/23Team MemberRelationshipSpecialtyStart DateEnd Date Anabell Degroot DO PCP - General06/27/23 Reason for Visit (unrecogniz ed section and content) SpecialtyDiagnoses / ProceduresReferred By ContactReferred To ContactCardiology Diagnoses Femoral bruit Procedures Vascular US PVR without exercise Guillermina Goldstein MD [address] [facility] 2, [address] [place] [address] Referral IDStatusReGreil [facility] DateExpiration DateVisits RequestedVisits [id number] Perform Procedure [id number] / ProceduresReferred By ContactReferred To ContactRadiology Diagnoses Abnormal electrocardiogram (ECG) (EKG) Encounter for preprocedural cardiovascular examination Procedures Nuclear Stress Test CHG MYOCARDIAL SPECT MULTIPLE STUDIES CHG MYOCARDIAL SPECT SINGLE STUDY AT REST OR STRESS KS CV STRS TST XERS&/OR RX CONT ECG W/O I&R KS CV STRS TST XERS&/OR RX CONT ECG I&R ONLY KS CV STRS TST XERS&/OR RX CONT ECG TRCG ONLY KS CV STRS TST XERS&/OR RX CONT ECG W/SI&R Guillermina Goldstein MD [address] [place], [place] [address] Referral IDStaFort Hamilton Hospital DateExpiration DateVisits RequestedVisits [id number]/[id number]/[id number] / Procedures Referred By ContactReferred To ContactCardiology Diagnoses Heart murmur Pre-operative cardiovascular examination Procedures Transthoracic Echo (TTE) Complete KS ECHO TRANSTHORC R-T 2D W/WO M-MODE REC F-UP/LMTD KS DOP ECHOCARD COLOR FLOW VELOCITY MAPPING KS DOP ECHOCARD PULSE WAVE W/SPECTRAL F-UP/LMTD STD Guillermina Goldstein MD [address] [place] [address], [address] [address] Referral IDStatusasonLebanon Junction DateExpiration DateVisits RequestedVisits [id number] Perform Procedure FOR RECORDS PERTAINING TO PATIENTS WHO ARE [...] BE BASED ON THE PRIMARY CLINICAL RECORDS. [facility] SinDelantal [facility]. provides no warranty or guarantee of the accuracy or completeness of information in this document.
== END 2025-08-13 11:19 | disposition home or self-care (01) ==
LOC: WC 11:19
PROVIDERS: PCP Emergency Medicine; Visit Provider Physician Assistant
DX: L97.525 Non-pressure chronic ulcer of other part of left foot with muscle involvement without evidence of necrosis (principal)
CPT/HCPCS: 11043

== ENCOUNTER 2025-09-03 11:15 | Outpatient (OUT) | payer OTHER, SELFPAY ==
--- OUTSIDE RECORDS SUMMARY | 2025-09-03 11:17 | XMS_ITS | Clinical Summary ---
Author Organization [facility] Address [address] [place] [address] Phone Care Team Providers Care Engraver Block Name Role Phone Marguerite Degroot Primary Care Provider [phone] Allergies No known active allergies Social History Tobacco UseTypesPacks/DayYears UsedDateSmoking Tobacco: Never AssessedSex and Gender InformationValueDate RecordedSex Assigned at BirthNot on fileLegal Sex Male06/22/2023 3:19 PM EDTGender IdentityNot on fileSexual OrientationNot on file Last Filed Vital Signs Vital SignReadingTime TakenCommentsBlood Mfvtspuy715/6010 11:20 AM EDT Bixhv531508/15/2023 11:20 AM EDTTemperature--Respiratory Rate--Oxygen Saturation-- Inhaled Oxygen Concentration--Qfkeso86 kg (205 lb)08/15/2023 11:20 AM EDTHeight 190.5 cm (6' 3 )08/15/2023 11:20 AM EDTBody Mass Index25.6208/15/2023 11:20 AM EDT Plan of Treatment Health MaintenanceDue DateLast DoneCommentsCT Gbhaysninxlu00/03/1971Colonoscopy 1970Colorectal Cancer Wqrkqsjtq31/03/1971FIT-DNA (Cologuard)1970FIT 1970HIV Qvoufexot54/03/1971Lipid Panel1970 8499Xqpttromjyzxm83/03/1971 Yearly Adult Zcvifleo49/03/1971MMR Vaccines (1 of 1 - Standard series)12/24/1971 Diabetes Vbqpqkhmj29/03/1989Hepatitis C Yrricxyjn64/03/1989Hepatitis B Vaccines (1 of 3 - 19+ 3-dose series)1989DTaP/Tdap/Td Vaccines (1 - Tdap)1992 PSA Prostate Cancer Ctapvttrn52/03/2021neumococcal Vaccine (1 of 1 - PCV) 2020Zoster [...] ArmijoAccount TypeRelation to PatientDate of BirthPhone Billing AddressPersonal/PguqrmGafq66/03/1971 [facility] [place] [address] Care Teams Team MemberRelationshipSpecialtyStart DateEnd Date Marguerite Degroot DO [address] [place] [address] PCP - GeneralFamily Diwnvmkv34/24/23
--- OUTSIDE RECORDS SUMMARY | 2025-09-03 11:17 | XMS_ITS | Clinical Summary ---
Author Organization [facility] Address [address] [place] [address] Care Team Providers Care Log Stacker Operator Name Role Phone Marguerite Degroot MD Primary Care Provider [phone] Allergies No known active allergies Medications MedicationSigDispense [...] RecordedSex Assigned at BirthNot on file Legal DxfPdws4701/04/2023 11:25 PM EDTGender IdentityNot on fileSexual Orientation Not on file Plan of Treatment Not on file Insurance * Guarantor: Guy ArmijoAccount TypeRelation to PatientDate of BirthPhone Billing AddressPersonal/WsvwbdMfwz87/03/1971 [facility] [place] [address] [place] [address] Care Teams Team MemberRelationshipSpecialtyStart DateEnd Date Marguerite Degroot MD PCP - GeneralFamily Vdhlfbin93/9/23
--- OUTSIDE RECORDS SUMMARY | 2025-09-03 11:32 | XMS_ITS | CCD ---
Author Organization [facility] Care Team Providers Care Car Sales Representative Name Role Phone Anabell Degroot Primary Care Physician [phone] IMAN ROBBINS Attending Unavailable IMAN ROBBINS Admitting [...] (Original)albuterol HFA 90 mcg/inh MDI (8 sources)Start: 43-12-0935ueqd 180 ug by inhalation every two hoursalbuterol HFA 90 mcg/inh MDI 180 mcg, 2 puff(s), Inhalation, q2hr Shortness of breath or wheezing, 8.5 gm, Refill(s) 0, [facility], 191, cm, 10/06/21 9:14:00 EST, Height/Length Dosing, 100, kg, 10/06/21 9:14:00 EST, Weight Dosing Start Date: 10/11/21 Status: Orderedapixaban 5 mg oral tablet (16 sources)Factor Xa InhibitorStart: 40-50-3237ajdo 1 tablet by mouth twice dailyEliquis 5 mg oral tablet 5 mg = 1 tab(s), Oral, BID, # 60 tab(s), Refills(s) 3, Pharmacy: [facility] 1985, 191, cm, 11/01/21 13:08:00 EST, Height/Length Dosing, 97.2, kg, 11/01/21 13:07:00 EST,Weight Dosing Start Date: 11/01/21 Status: Ordereddexamethasone 6 mg oral tablet (8 sources)CorticosteroidStart: 76-81-4750lwvc 1 tablet by mouth once daily dexamethasone 6 mg oral tablet 6 mg = 1 tab(s), Oral, Daily, # 4 tab(s), Refills(s) 0, Pharmacy: [facility] 1985, 191, cm, 10/06/21 9:14:00 EST, Height/Length Dosing, 100, kg, 10/06/21 9:14:00 EST, Weight Dosing Start Date: 10/11/21 Status: Orderedibuprofen 400 mg oral tablet (9 sources)Nonsteroidal Anti-inflammatory DrugStart: 52-38-0384drkl 400 mg by mouth every six hours as needed for painibuprofen 400 mg, Oral, q6hr, PRN as needed for pain, Refills(s) 0 Start Date: 11/01/21 Status: OrderedIbuprofen CAPS TAKE 4 CAPSULE Daily Quantity: 0 Refills: 0 Ordered: 27-Jun-2023 DO Active Completed/Discontinued Medications MedicationDrug Class(es)DatesSig (Normalized)Sig (Original)aspirin 81 mg delayed release oral tablet (1 source)Platelet Aggregation Inhibitor, Nonsteroidal Anti-inflammatory Drug Start: 50-52-8392glwq 1 tablet by mouth once dailyAspirin 81 MG Oral Tablet Delayed Release TAKE 1 TABLET DAILY. Quantity: 90 Refills: 3 Ordered: 27-Jun-2023 Guillermina Goldstein MD Start : 27-Jun-2023 Activeregadenoson (Lexiscan) injection 0.4 mg (2 sources)Start: 08-15-2023 End: 74-01-8671urnjtzzvycj (Lexiscan) injection 0.4 mg Problems Active Problems Problem ClassificationProblemDateDocumented DateEpisodic/ChronicChronic obstructive pulmonary disease and bronchiectasis (10 sources)Chronic obstructive lung disease; Translations: [Chronic obstructive pulmonary disease, unspecified]Onset: 377858-89-8261SiafkyyFaqbsel ulcer of skin (5 sources)Non-pressure chronic ulcer of other part of left foot with fat layer exposed; Translations: [N-PRS ULCR OTH PRT LT FT FAT EXPOS]Onset: 05-24-2022 ChronicDiabetes mellitus without complication (1 source)Hyperglycemia, unspecified; Translations: [HYPERGLYCEMIA UNSPECIFIED] Onset: 52-11-2491LrppvupwJmkaspsnm of lipid metabolism (9 sources)Hypercholesterolemia; Translations: [Hyperlipidemia]06-93-1456Lmajziu Other circulatory disease (5 sources)Other specified peripheral vascular diseases; Translations: [OTH SPEC PERIPHERAL VASC DISEASES]Onset: 39-93-8307SkbwocjPblip circulatory disease (3 sources)Femoral bruit; Translations: [Other symptoms involving cardiovascular system]11-57-1036SvcedjpbLcjom lower respiratory disease (3 sources)Disorder of lung; Translations: [Other disorders of lung]Onset: 20-69-1269WabfzivnUzntf non-traumatic joint disorders (1 source)Other specified arthritis, unspecified site; Translations: [OTHER SPECIFIED ARTHRITIS UNS SITE]Onset: 80-71-0865QzyfnkuZtnsk nutritional; endocrine; and metabolic disorders (1 source)Overweight in adulthood with body mass index of 25 or more but less than 30; Translations: [Overweight]EpisodicOther skin disorders (1 source)Epidermal cyst; Translations: [EPIDERMAL CYST]Onset: 07-06-2022 EpisodicOther skin disorders (1 source)Corns and callosities; Translations: [CORNS AND CALLOSITIES]Onset: 09-31-7386YtdylsbrWpmh and subcutaneous tissue infections (1 source)Other specified local infections of the skin and subcutaneous tissue; Translations: [OTH SPEC LOC INFECT SKIN SUBQ TISS]Onset: 97-14-3643Udqoabpd Substance-related disorders (10 sources)Smoker; Translations: [Nicotine dependence, cigarettes, uncomplicated]Onset: 266331-55-0240PyrupwtPjbsmcc on above:Added secondary to documentation in Social History.1-2 PACKS DAILY;Superficial injury; contusion (5 sources)Blister (nonthermal), left foot, sequela; Translations: [BLISTER NONTHERMAL LT FOOT SEQUELA]Onset: 29-91-4008Xfzqdnwk Past or Other Problems Problem ClassificationProblemDateDocumented DateEpisodic/ChronicHeart valve disorders (5 sources)Heart murmur; Translations: [Undiagnosed cardiac murmurs]Onset: 041713-74-0847UiiiqpblSqswq circulatory disease (2 sources)Other specified symptoms and signs involving the circulatory and respiratory systems; Translations:[Other specified symptoms and signs involving the circulatory and respiratory systems]Onset: 89-21-7528AoaonpnqTrafn screening for suspected conditions (not mental disorders or infectious disease) (3 sources)Electrocardiogram abnormal; Translations: [Nonspecific abnormal electrocardiogram [ECG] [EKG]]Onset: 45-10-1010KgmmoqcoUtzdlkutfsvd (3 sources)cyst removed( Confirmed )81-16-8018Wiuyyyyjmmgs (5 sources)cyst tecjywn36-31-1573 Results Test NameValueInterpretationReference RangeFacilityConsent for Treatmenton 66-48-7440Ixclkvo for [id number]#1.00TIFF [facility] HospitalOncology Progress Noteon 41-70-7654Mtxjiarn Progress NotePatient: CHAKA DE LEÓN Age: 52 [...] He was prescribed Eliquis at discharge from [facility]. He also has a [...] overal grwoing very slowly since 2018 now 48z56ri no new complaints. / 08/30/23 doing well. [...] Problem list: All Problems Smoker / IMO 564139 / Confirmed Added secondary to documentation in Social History. Resolved: COPD / SNOMED CT 56251887 Resolved: cyst removed Resolved: Hypercholesterolemia / SNOMED CT 71173563 Canceled: Tobacco use / SNOMED CT [id number] Added secondary to social history documentation. Histories Past Medical History: Resolved COPD (26633567): Resolved. cyst removed: Resolved. Hypercholesterolemia (99311988): Resolved. Family History: No family history items [...] . Impression and Plan Diagnosis Pulmonary embolus (CZP77-PB I26.99, Working, Medical). COVID-19 with pulmonary comorbidity (OJD02-ZR U07.1, Working, Medical). .. Pulmonary Embolus d/t COVID completed 6 mos El (more content not included)...[facility] HospitalOutside Progress Noteon 19-45-4348Lhxuhhx Progress Note [id number]#1.00TIFFNormalMercy Health Kings Mills HospitalUS Heart TransthoracicOrdered By: Guillermina Goldstein on 85-38-0295LA A4C EF 74.7[facility] Work Phone: [facility] Work Phone: US Heart Transthoracicon 08-18-[address], [address] [place] [address] TRANSTHORACIC ECHOCARDIOGRAM REPORT Patient Name: CHAKA Robbins Physician: [id number] Guillermina Goldstein MD, [facility] Study Date: 08/15/2023 Ordering Provider: [id number] GUILLERMINA GOLDSTEIN MRN/PID: [id number] Fellow: Nurse: Date of /Age: 3 1970 / 52 years Regional Account Director: Heaven Garfield RDCS, RVT Gender: M Additional Staff: Height: 190.50 cm Admit Date: Weight: 92.99 kg Admission Status: BSA: 2.22 m2 Department Location: [facility] Blood Pressure: 126 /72 mmHg Study Type: TRANSTHORACIC ECHO (TTE) COMPLETE Diagnosis/ICD: Cardiac murmur, unspecified-R01.1; Encounter for preprocedural cardiovascular examination-Z01.810 Indication: Abnormal EKG, POC-Dr. Robbins for Foot Ulcer/Date Pending, COPD, Hyperlipidemia, 2/6 Systolic Murmur, Tobacco Abuse, Overweight, Femoral Artery Bruit CPT Codes: Echo Complete w Full Doppler-82169 Study Detail: The following Echo studies were [...] content not included)...Guillermina Manzo MD - 08/18/2023 [facility] [address], [address], [place] [address] TRANSTHORACIC ECHOCARDIOGRAM REPORT Patient Name: CHAKA DE LEÓN Reading Physician: [id number] Guillermina Goldstein MD, [facility] Study Date: 08/15/2023 Ordering Provider: [id number] GUILLERMINA GOLDSTEIN MRN/PID: [id number] Fellow: Nurse: Date of /Age: 3 1970 / 52 years Regional Account Director: Heaven Simmons RDCS, RVT Gender: M Additional Staff: Height: 190.50 cm Admit Date: Weight: 92.99 kg Admission Status: BSA: 2.22 m2 Department Location: [facility] Blood Pressure: 126 /72 mmHg Study Type: TRANSTHORACIC ECHO (TTE) COMPLETE Diagnosis/ICD: Cardiac murmur, unspecified-R01.1; Encounter for preprocedural cardiovascular examination-Z01.810 Indication: Abnormal EKG, POC-Dr. Robbins for Foot Ulcer/Date Pending, COPD, Hyperlipidemia, 2/6 Systolic Murmur, Tobacco Abuse, Overweight, Femoral Artery Bruit CPT Codes: Echo Complete w Full Doppler-73061 Study Detail: The following Echo studies were [...] mmHg PIEDV: 2.00 m/s PADP: 19.0 mmHg [id number] Guillermina Goldstein MD, [facility] Electronically signed on 08/18/2023 at 2:33:32 PM Final [facility] Work Phone: Vascular US PVR without exerciseon 08-18-[address], [place] [address] Vascular Lab Report VASC US PVR WITHOUT EXERCISE Patient Name: CHAKA Robbins Physician: [id number] Guillermina Goldstein MD, FACC Study Date: 08/15/2023 Ordering Provider: [id number] GUILLERMINA GOLDSTEIN MRN/PID: [id number] Fellow: Technologist: Heavne Simmons RD, RVT Date of /Age: 3 1970 / 52 years Technologist 2: Gender: M Admission Status: Outpatient Location Performed: [facility] Diagnosis/ICD: Other specified symptoms and signs [...] Left Brachial Pressure 112 mmHg 101 mmHg [id number] Guillermina Goldstein MD, FACC Final Guillermina Manzo MD - 08/18/[address], Suite [facility], [place] [address] Vascular Lab Report VASC US PVR WITHOUT EXERCISE Patient Name: CHAKA Robbins Physician: Elkin Goldstein MD, FACC Study Date: 08/15/2023 Ordering Provider: [id number] GOLDSTEIN MRN/PID: [id number] Fellow: Technologist: Heaven Simmons RDCS, T Date of /Age: 3 1970 / 52 years Technologist 2: Gender: M Admission Status: Outpatient Location Performed: [facility] Diagnosis/ICD: Other specified symptoms and signs [...] Left Brachial Pressure 112 mmHg 101 mmHg [id number] Guillermina Goldstein MD, FACC Final [facility] Work Phone: [facility] PVR without exerciseOrdered By: Guillermina Goldstein on 81-56-7819CnswedtlzaKindred Hospital Dayton Work Phone: nm Heart Perfusion W stress and W radionuclide Robina 70-59-5056Dpmmmo Femta Pharmaceuticalsiscan Cawood Scientificview cardiac perfusion stress test. No evidence of ischemia or myocardial infarction by perfusion imaging. Normal left ventricular systolic function, ejection fraction 64%. No previous studies are available for comparison. Signed by: Guillermina Goldstein 08/15/2023 6:10 PM Dictation workstation: [id number] By: Guillermina Goldstein and Giannuzzi Michael STUDY: MYOCARDIAL PERFUSION STRESS TEST WITH LEXISCAN Performing facility: [facility], [address] [place] [address], [address], [address] Provider: Guillermina Goldstein MD, FACC PCP: Dr. Daniel Degroot Supervising provider: Guillermina Goldstein MD, FACC INDICATION: Abn EKG Pre-operative risk assessment for Toe surgery scheduled at [place] on TBD. HISTORY: Gender: M; Age: 52 y/o ; Height: HT 190.5 cm cm; Weight: WT 92.987 kg kg. Abnormal EKG; High Cholesterol; COPD; Currently smoking. COMPARISON: No comparison. ACCESSION NUMBER(S): [id number] ORDERING CLINICIAN: GUILLERMINA GOLDSTEIN TECHNIQUE: ONE DAY [...] There was evidence of apical attenuation artifact. [facility] CONNERTONODALGuillermina Goldstein MD - 08/15/2023 Interpreted By: Guillermina Goldstein and Giannuzzi Michael STUDY: MYOCARDIAL PERFUSION STRESS TEST WITH LEXISCAN Performing facility: [facility], [address] [place] [address], [address], [place] [address] [facility] Provider: Guillermina Goldstein MD, FACC PCP: Dr. Daniel Degroot Supervising provider: Guillermina Goldstein MD, FACC INDICATION: Abn EKG Pre-operative risk assessment for Toe surgery scheduled at [place] on TBD. HISTORY: Gender: M; Age: 52 y/o ; Height: HT 190.5 cm cm; Weight: WT 92.987 kg kg. Abnormal EKG; High Cholesterol; COPD; Currently smoking. COMPARISON: No comparison. ACCESSION NUMBER(S): [id number] ORDERING CLINICIAN: GUILLERMINA GOLDSTEIN TECHNIQUE: ONE DAY [...] Guillermina Goldstein 08/15/2023 6:10 PM Dictation workstation: [id number] [facility] Work Phone: Radiology Study observation (narrative)[facility] Work Phone: nm Heart Perfusion W stress and W radionuclide IV Ordered By: Guillermina Goldstein on 74-45-9211KdbbzmzqtdKindred Hospital Dayton Work Phone: NUCLEAR STRESS TESTon 35-15-9934JNUXGHE STRESS TEST Interpreted By: Guillermina Goldstein, and Shalom Correia STUDY: MYOCARDIAL PERFUSION STRESS TEST WITH LEXISCAN Performing facility: [facility], [address] [place] [address], [address], [address] Provider: Guillermina Goldstein MD, FACC PCP: Dr. Daniel Degroot Supervising provider: Guillermina Goldstein MD, FACC INDICATION: Abn EKG Pre-operative risk assessment for Toe surgery scheduled at [place] on TBD. HISTORY: Gender: M; Age: 52 y/o ; Height: HT 190.5 cm cm; Weight: WT 92.987 kg kg. Abnormal EKG; High Cholesterol; COPD; Currently smoking. COMPARISON: No comparison. ACCESSION NUMBER(S): [id number] ORDERING CLINICIAN: GUILLERMINA GOLDSTEIN TECHNIQUE: ONE DAY [...] Guillermina Goldstein 08/15/2023 6:10 PM Dictation workstation: [id number] [facility] Center Comment on above:Order Comment: Rad Selected: Y [facility] to schedule and to readTRANSTHORACIC ECHO (TTE) COMPLETEon 31-63-1741GZTSMSEVKOAZN ECHO (TTE) [address], [address] [place] [address] TRANSTHORACIC ECHOCARDIOGRAM REPORT Patient Name: CHAKA DE LEÓN Reading Physician: [id number] Goldstein MD, [facility] Study Date: 08/15/2023 Ordering Provider: [id number] GOLDSTEIN MRN/PID: [id number] Fellow: Nurse: Date of /Age: 3 1970 / 52 years Regional Account Director: Heaven Simmons [facility], T Gender: M Additional Staff: Height: 190.50 cm Admit Date: Weight: 92.99 kg Admission Status: BSA: 2.22 m2 Department Location: [facility] Blood Pressure: 126 /72 mmHg Study Type: TRANSTHORACIC ECHO (TTE) COMPLETE Diagnosis/ICD: Cardiac murmur, unspecified-R01.1; Encounter for preprocedural cardiovascular examination-Z01.810 Indication: Abnormal EKG, POC-Dr. Robbins for Foot Ulcer/Date Pending, COPD, Hyperlipidemia, 2/6 Systolic Murmur, Tobacco Abuse, Overweight, Femoral Artery Bruit CPT Codes: Echo Complete w Full Doppler-04755 Study Detail: The following Echo studies were [...] mmHg PIEDV: 2.00 m/s PADP: 19.0 mmHg [id number] Guillermina Goldstein MD, [facility] Electronically signed on 08/18/2023 at 2:33:32 PM Final [facility] CenterVAS US PVR WITHOUT EXERCISEon 00-87-4700PKOE US PVR WITHOUT EXERCISENorth [address], [place] [address] Vascular Lab Report [facility] US PVR WITHOUT EXERCISE Patient Name: CHAKA CHATMANCharles Itzel Physician: [id number] Guillermina Goldstein MD, [facility] Study Date: 08/15/2023 Ordering Provider: [id number] GUILLERMINA GOLDSTEIN MRN/PID: [id number] Fellow: Technologist: Heaven Simmons RD, T Date of /Age: 3 1970 / 52 years Technologist 2: Gender: M Admission Status: Outpatient Location Performed: [facility] Diagnosis/ICD: Other specified symptoms and signs [...] Left Brachial Pressure 112 mmHg 101 mmHg [id number] Guillermina Goldstein MD, FACC Final [facility] CenterVascular US PVR without exerciseon 73-20-2168Rsgznkgke Study observation (narrative)[facility] Work Phone: CT Chest w/ Contraston 03-44-9236TB Chest w/ Contrast Exam Date/Time: 08/10/2023 09:25 [...] Contrast: Isovue 300 Contrast amount in ml's: 100NoPike Community HospitalConsent for Treatmenton 09-75-3782Htffkda for Treatment [id number]#1.00TIFWayne HospitalOutside Progress Noteon 11-43-4648Wytrkoh Progress Note [id number]#1.00[facility] CenterInsurance Correspondenceon 50-20-8393Kzvdlmciq Correspondence [id number]#1.00[facility] CenterOffice Visit (Cardiology)on 81-06-0937Bwvkez-up visitDiagnoses/Problems Assessed Pre-operative cardiovascular examination (V72.81) (Z01.810) [...] we can help. You may also call [phone] for free resources and assistance.; Status:Complete - [...] This is scheduled with Dr. Robbins in [place]. The patient is not a very good [...] to (more content not included)...NormalUH TouchworksTobacco Screening.on 39-07-2818Ukit risk assessmenta) No falls within the last yearWestern State Hospital HeartThe University of [facility] 600 DO Work Phone: Tobacco use status CPHSa) YesWestern State Hospital HeartAvenace Incorporated [place] 600 DO Work Phone: Tobacco Screening.YesWestern State Hospital Pod [place]ns[place] 600 DO Work Phone: Physician Orderon 06-98-4883Gefbwhncm OrderScheduled in [place] on 06/29. Spoke with Monika at [employer] and let her know I got patient scheduled. [id number]#1.00CD:127NoPike Community HospitalXR FOOT LT MIN 3 VIEWSon 45-51-0714RO FOOT LT MIN 3 VIEWSSTUDY: XR FOOT [...] Electronically authenticated by: ELHAM GOODE Date: 2022-04-11 16:53[facility] Vital Signs Date TimeVital SignValuePerforming DmcerenzzAnmdhhxg78-38-0975 13:58-0500Heart rate79 /minC[facility]11-08-2023 13:58-0500 SaO2% (BldA) [Mass fraction]97 %[facility] 08-30-2023 13:58-0500Body rugxgkykipo28.88 [degF][facility]11-08-2023 13:57-0500Diastolic blood bukgrzoa33 mm[Hg][facility]11-08-2023 13:57-0500Mean blood paooaaxr66 mm[Hg][facility]11-08-2023 13:57-0500 Systolic blood mrmyjscn023 mm[Hg][facility] 08-30-2023 13:56-0500Respiratory rate14 /minC[facility] Clinic [facility] Hospital10-24-2023 11:20-0400Body lzmbwa504.[address] [place], [place] [address]10-24-2023 11:20-0400Body mass index (BMI) [Ratio]25.62 kg/m2Ely 1 [facility]10-24-2023 11:20-0400Body rmkyjo05.99 kgEly 1 [facility]10-24-2023 11:20-0400Diastolic blood wumagskt99 mm[Hg]Randee 1[facility]10-24-2023 11:20-0400Heart rate73 /minEly 1[facility]10-24-2023 11:20-0400Systolic blood mm[Hg]Randee 1[facility]10-24-2023 08:42-0400 Body mxeqyr798.5 cmEly 2[facility]10-24-2023 08:42-0400 Body mass index (BMI) [Ratio]25.62 kg/m2Ely 2[facility] 08-15-2023 08:42-0400Body uducmz12.99 kgEly 2[facility] 08-15-2023 08:42-0400Diastolic blood uydblaje97 mm[Hg]Randee 2[facility]10-24-2023 08:42-0400Systolic blood iqsvqctp150 mm[Hg]Randee 2 [facility]09-05-2023 11:21-0400Diastolic blood dbikzqju26 mm[Hg]Anabell Degroot Work Phone: [phone]-DvbtmChippewa City Montevideo Hospital 600 DO Work Phone: [phone])[phone]-5032 11:21-0400Systolic blood mm[Hg] Anabell Sampson Degroot Work Phone: [phone]-ZiifwPaynesville Hospitalk 600 DO Work Phone: 1(775) 442-918709-05-2023 11:18-0400Body edlrxi551.5 cmElystony Degroot Work Phone: [phone]-VefmfNorth Valley Health Centerwalk 600 DO Work Phone: 1(175) 815-763109-05-2023 11:18-0400Body mass index (BMI) [Ratio] 25.62 kg/k2OculzAnabell Degroot Work Phone: [phone]-Csgpw [facility] 600 DO Work Phone: 1(925) 848-893209-05-2023 11:18-0400Body surface area Derived from formula2.22 u8MfdrsAnabell Degroot Work Phone: [phone]-Fqllv [facility] 600 DO Work Phone: 1([phone]) 909-905409-05-2023 11:18-0400Body .99 kgAnabell Degroot Work Phone: [phone]-LnwbiPaynesville Hospitalk 600 DO Work Phone: 1(488) 126-310409-05-2023 11:18-0400Diastolic blood mvmqsbit57 mm[Hg] Aanbell Degroot Work Phone: [phone]-QjpxoPaynesville Hospitalk 600 DO Work Phone: 1(996) 981-837609-05-2023 11:18-0400Heart rate64 /minElyse Sampson Degroot Work Phone: [phone]-ZsfvlFairmont Hospital and Clinick 600 DO Work Phone: 1(666) 194-683109-05-2023 11:18-0400Systolic blood bcukfkob109 mm[Hg] Anabell Degroot Work Phone: [phone]-YqmglChippewa City Montevideo Hospital 600 DO Work Phone: 1(362) 221-739111-03-2022 10:30-0400Blood Pressure LocationCleveland Clinic [facility] Hospital11-03-2022 10:30-0400Body zgqwuipjwdy96.24 [degF][facility]11-03-2022 10:30-0400 BP/Pulse Patient PositionCleveland Clinic Avon Hospital 08-25-2022 10:30-0400Diastolic blood ojaeqjqh85 mm[Hg][facility]11-03-2022 10:30-0400Heart rate75 /minOhiohealth Grant Medical Center11-03-2022 10:30-0400Mean blood lulkwpwe07 mm[Hg] Uqintin [facility]11-03-2022 10:30-0400Respiratory rate19 /minQuintin [facility]11-03-2022 10:30-0400 SaO2% (BldA) [Mass fraction]95 %[facility] 08-25-2022 10:30-0400Systolic blood ptcfyhfy934 mm[Hg][facility]04-11-2022 12:33-0400Blood Pressure LocationAdwoa Monahan [address]04-11-2022 12:33-0400Body xsfkjlsovsr90.7 [degF]Adwoa Monahan [address]04-11-2022 12:33-0400 BP/Pulse Patient PositionAdwoa Monahan [address]04-11-2022 12:33-0400 Diastolic blood mbirnoeh49 mm[Hg]Adwoa Monahan [address]04-11-2022 12:33-0400Heart rate91 /Staci Monahan [address]04-11-2022 12:33-0400Mean blood hmtmktme27 mm[Hg]Adwoa Monahan [address] [place], [place] 5826004-11-2022 12:33-0400 Respiratory rate17 /Staci Monahan [address] [place], [place] 5826004-11-2022 12:33-3756NjI1% (BldA) [Mass fraction]96 %Adwoa Monahan [address] [place], [place] 5826004-11-2022 12:33-0400 Systolic blood mm[Hg]Adwoa Monahan [address] [place] [address] Encounters Encounter DateEncounter TypeCare ProviderFacilityStart: 09-05-2024 End: 36-80-4088Niy-admission assessmentQuintin [facility] Start: 08-31-2023 End: 68-65-7916jviuwuuagqRJQCRXVRK D ZALUIS ALBERTORoseann AvailableStart: 08-30-2023 End: 40-59-0090bgfxvwqlkgDefpseq AdamowiczFacility:FTMCStart: 08-30-2023 End: 28-16-1979Ubceuaf encounter procedureQuintin [facility] Start: 08-15-2023 End: 51-90-0117Luxvfgfxid hospital visit by Eric Beavers [facility] CenterStart: 08-15-2023 End: 55-71-3783Lihoihs encounter status[address] Work Phone: Start: 08-15-2023 End: 21-14-5492Mzpqcwebuk hospital visit by Eric Beavers Echo/Vasc Room 2[facility] CenterComment on above:Femoral bruitHeart murmur; Pre-operative cardiovascular examinationStart: 08-15-2023 End: 66-38-4643kmkcdmumguCEVVNI M [facility] Hospitaltart: 08-15-2023 End: 70-85-9008Veacalyhy for preprocedural cardiovascular examinationANABELL Braden [facility] Hospitaltart: 08-10-2023 End: 38-32-3630kqdmqivwrcQlnjyio AdamowiczFacility:FTMCStart: 08-10-2023 End: 22-36-5254Kkjziqc encounter procedureQuintin [facility] Start: 90-61-6112Quobdr consultation new/estab patient 60 minElyse C Mikayla Work Phone: [phone]-Wclhd [facility] 600 DO Work Phone: Start: 37-20-2044pulpxqgvplHzJessica Goldstein Facility:[id number]: 10-04-8535chfksugrriTfJessica Logan AguilaabdulazizFacility:UHCStart: 08-25-2022 End: 60-77-1585Psspmhx encounter procedureQuintin [facility] Start: 08-16-2022 End: 04-22-6492Nefwxyv encounter procedureAdwoa Gonzales Taniya [facility] Start: 06-20-2022 End: 88-91-4431ykmfklmhmgEBVPG D HIGHLANDERFacility:C3Ltqwu: 05-24-2022 End: 93-86-7673ezrbbhzvbbVAWKS D HIGHLANDERFacility:C9Luwrc: 04-26-2022 End: 45-80-0399vhrifxlncrIF ROBIN M RUGGLESFacility:L3Zigup: 04-11-2022 End: 98-59-6874uncakfbvfpIR ROBIN Michael RUGGLESFacility:K0Ruikm: 01-31-2022 End: 51-17-3648Bscnyaw encounter procedureAdwoa Pricehope [facility] Start: 01-28-2022 End: 17-92-8451Yopndpf encounter procedureHugh [facility] Hospitalg[facility] Start: 01-28-2022 End: 86-97-0464Raa-admission assessmentCristopher Stevenson [facility] Start: 25-40-3604tezkekmwloEX ROBIN M RUGGLESFacility:H1 Start: 08-02-2021 End: 80-88-8824nzfqswzqvmUGRKNHR O CLOUGHERTYFacility:F9Qddzhpx encounter status Anabell Degroot Work Phone: [phone]-PpqioGrand [facility]asca Clinic [facility] 600 DO Work Phone: Procedures DateProcedureProcedure DetailPerforming ClinicianStart: 08-13-3917GJDFOZI STRESS TESTELYSE TINKERStart: 29-30-5981Ag strs tst xers&/or rx cont ecg trcg only Guillermina Goldstein MD Work Phone: Start: 71-11-2262IJXX US PVR WITHOUT EXERCISEELYSE TINKERStart: 32-37-6555BMCLAUGCYKGUF ECHO (TTE) COMPLETEELYSE TINKERStart: 17-17-6025Rgr-invasive physiologic study extremity 3 Marilin Goldstein MD Work Phone: Start: 00-56-4985Cqkk tthrc r-t 2d w/wom-mode compl spec&colr Michael Goldstein MD Work Phone: cyst removedTimothy AdamowiczTonsillectomyElyse C Mikayla Work Phone: Plan of Treatment DateCare ActivityDetailAuthorStart: 33-89-8404XCW, Provider: Guillermina Goldstein, Status: Pen, Time: 11:30 AMFUV, Provider: Guillermina Goldstein, Status: Pen, Time: 11:30 AMGrand Itasca Clinic and Hospital 600 DO Work Phone: Start: 09-19-2023 End: 39-28-8903Iaqpdbx encounter /28/2023 11:30 AM EST Office Visit [place] [address] [place] [address] Guillermina Goldstein MD [address] [facility] 2, [address] [place] [address] [facility]Start: 71-21-4184UXM, Provider: ARIANNA MCADAMS ULTRASOUND ,[id number], Status: Pen, Time: 9:45 AMPVR, Provider: ARIANNA MCADAMS ULTRASOUND ,[id number], Status: Pen, Time: 9:45 AMMP-[facility] 600 DO Work Phone: Start: 17-64-6001GCQM, Provider: ARIANNA HHVI ULTRASOUND 01,[id number], Status: Pen, Time: 8:45 AMECHO, Provider: ARIANNA HHVI ULTRASOUND 01,[id number], Status: Pen, Time: 8:45 AMMP-[facility] 600 DO Work Phone: Start: 57-82-5270WJANQK NUC, Provider: ARIANNA HHVI NUCLEAR 01,[id number], Status: Pen, Time: 8:00 AMSTRESS NUC, Provider: ARIANNA HHVI NUCLEAR 01,[id number], Status: Pen, Time: 8:00 [facility] 600 DO Work Phone: Start: 82-32-7536Wbumvtzoy vaccinationInfluenza Vaccine (#1)[facility]: 18-46-1436Vjbsll Vaccines (1 of 2)Zoster Vaccines (1 of 2)[facility]: 1992 DTaP/Tdap/Td Vaccines (1 - Tdap)DTaP/Tdap/Td Vaccines (1 - Tdap)[facility]: 24-40-8290Qsighfaby A Vaccines (1 of 2 - Risk 2- dose series)Hepatitis A Vaccines (1 of 2 - Risk 2-dose series)[facility]: 52-55-7983Libffkod mellitus screeningDiabetes ScreeningUnGrant Hospital: 02-07-9952Gtmbbcaqm C screening Hepatitis C ScreeningUnGrant Hospital: 1976 Pneumococcal Vaccine: Pediatrics (0 to 5 Years) and At-Risk Patients (6 to 64 Years) (1 - PCV)Pneumococcal Vaccine: Pediatrics (0 to 5 Years) and At-Risk Patients (6 to 64 Years) (1 - PCV)[facility]: 54-05-4182VLY Vaccines (1 of 1 - Standard series)MMR Vaccines (1 of 1 - Standard series)[facility]: 72-91-6189CQCHM-19 Vaccine (#1) COVID-19 Vaccine (#1)[facility]: 18-60-6618Giszjnmct B Vaccines (1 of 3 - 3-dose series)Hepatitis B Vaccines (1 of 3 - 3-dose series)[facility]: 51-64-7776URO screeningHIV ScreeningDayton VA Medical Center: 42-85-4683Gxxrj panelLipid PanelUnGrant Hospital: 74-81-2149Asftdhmxk for malignant neoplasm of colonUnGrant Hospital: 50-04-2712Pomaue Adult PhysicalYearly Adult PhysicalUnKindred Hospital [facility] End: 29-62-4018GB Heart TransthoracicPRESBYTERIAN [facility] Service Area Work Phone: Comment on above:Once for 1 Occurrences starting 08/15/2023 until 08/15/2023 End: 44-79-7171Uvjaejnc US PVR without exercisePRESBYTERIAN KASEMAN [facility]OSPITAL Service Area Work Phone: Comment on above:Once for 1 Occurrences starting 08/15/2023 until 08/15/2023 Payers DatePayer CategoryPayerPolicy [id number] 2..1.927411.3.57[id number] 2..1.158333.3.57[id number] 2..1.275676.3.57[id number] 2..1.476568.3.57[id number] 2..1.120077.3.57[id number] 2..1.953002.3.57[id number] 2.16.840.1.315279.3.57[id number] 2.16.840.1.118392.3.57[id number] 2.16.840.1.939145.3.579.2.83529-18-7750Tcjqtrs34555 2.16.840.1.920219.3.579.2.0[id number] 2.16.840.1.973539.3.579.2.2[id number] 2.16.840.1.923741.3.579.[id number] 2.840.1.983314.3.579.[id number] 2.0.1.518825.3.57[id number] 2.0.1.810864.3.57[id number] 2..840.1.453285.3.579.[id number] 2.0.1.350416.3.57[id number] Social History DateTypeDetailFacilityTobaccoCigarettesCleveland Clinic [facility]on HospitalComment on above:1 ppdSex Assigned At BirthMalMercy Health West HospitalTobacco smoking statusNo Smoking Status EnteredCleveland Clinic Avon HospitalDaily caffeine consumptionDaily caffeine consumption-[facility] 600 DO Work Phone: Comment on above:1-2 PACKS DAILY;Tobacco smoking status NHISTobacco smoking consumption unknownSCCI Hospital [facility] Work Phone: Start: 79-43-1023Hrz Assigned At BirthNot on file [facility] Work Phone: Start: 08-05-2023 End: 72-09-7252Jzgvdmjm to SARS-CoV-2 (event)Not sureSCCI Hospital [facility] Clinical Notes 11-01-2021 to 11-28-2023 Note Date & IdafJxjxZecqkaqz94-73-6031 Evaluation + Plan note Future Scheduled Tests Radiology* CT Chest, Low Dose Screening 11/28/23 [facility] 412922-89-4724 Hospital Discharge instructions Follow Up Care 08/26/2022 10:06:59 With:Quintin Vo Address: [address] [phone] Fax Business (1) When: Unknown Comments:f/u in [address] chest low dose screening prior to f/u in 1 year. If he talks to Dr. Degroot, she can order ct screening and do f/u and he will not need to see me. [facility]10-24-2022 Hospital Discharge instructions Follow Up Care 08/15/2022 13:08:07 With:Quintin Vo Address: [address] [phone] Fax Business (1) When: Unknown Comments:f/u with me or opal after ct ches with contrast in a year. [facility]01-10-2022 Hospital Discharge instructions Follow Up Care 11/01/2021 13:28:42 With:Quintin Vo Address: [address] [phone] Fax Business (1) When: Unknown Comments:finish Eliquis in JuneCT chest w/ contrast in 6mofollow-up with Dr. Dobbins in 6mo after scan [facility] HospitalEvaluation + Plan note Future Appointments Appointment Date:01/31/2022 12:30:00 PM Scheduled Provider:Taniya HENRY, Adwoa Gonzales Location:FT.ONCOLOGY Appointment Type:ONC Office Visit 15 (FT) [facility]Evaluation + Plan note Future Appointments Appointment Date:08/10/2022 12:30:00 PM Scheduled Provider:Quintin Vo DO Location:FT.ONCOLOGY Appointment Type:ONC Office Visit 15 (FT) Future Scheduled Tests Radiology* CT Chest w/ Contrast 08/02/22 [facility] + Plan note Future Appointments Appointment Date:08/25/2022 10:15:00 AM Scheduled Provider:Quintin Vo DO Location:FT.ONCOLOGY Appointment Type:ONC Office Visit 30 (FT) [facility] + Plan note Future Scheduled Tests Radiology* CT Chest w/ Contrast 08/09/23 [facility] + [facility] note Future Appointments Appointment Date:08/30/2023 02:00:00 PM Scheduled Provider:Quintin Vo DO Location:FT.ONCOLOGY Appointment Type:ONC Office Visit 15 (FT) [facility] + Plan note Future Scheduled Tests Radiology* CT Chest, Low Dose Screening 11/28/23 [facility]* Diagnosis Femoral bruit documented in this encounter [facility] Work Phone: Evaluation note* Diagnosis Heart murmur Undiagnosed cardiac murmurs Pre-operative cardiovascular examination documented in this encounter [facility] Work Phone: Evaluation note* Diagnosis Femoral bruit documented in this encounter [facility] Work Phone: Evaluation note* Diagnosis Heart murmur Undiagnosed cardiac murmurs Pre-operative cardiovascular examination documented in this encounter [facility] Work Phone: Hospital course Narrative No data available for this section [facility] HospitalHospital Discharge instructions No data available for this section [facility] HospitalProgress note No data available for this section [facility] Summary Purpose Family History Unknown Family [...] This is scheduled with Dr. Robbins in [place]. The patient is not a very good [...] cardiovascular examination Procedures Transthoracic Echo (TTE) Complete CO ECHO TRANSTHORC R-T 2D W/WO M-MODE REC F-UP/LMTD CO DOP ECHOCARD COLOR FLOW VELOCITY MAPPING CO DOP ECHOCARD PULSE WAVE W/SPECTRAL F-UP/LMTD STD Guillermina Goldstein MD [address] [facility] 2, [facility] [address] [place] [address] Referral IDStatusReasonart DateExpiration DateVisits RequestedVisits [id number] Perform Procedure [id number] / ProceduresReferred By ContactReferred To ContactCardiology Diagnoses Femoral bruit Procedures Vascular US PVR without exercise Guillermina Goldstein MD [address] [facility] [address], [address] [place] [address] Referral IDStatusReasonJerome DateExpiration DateVisits RequestedVisits [id number] Perform Procedure Additional Source Comments (unrecognized sect ion and content) No Status Records FoundNo Status Records FoundNo Status Records FoundNo Status Records FoundNo Status Records FoundNo Status Records Found INFORMATION SOURCE (unrecogn ized section and content) DATE CREATED AUTHOR 07/19/2022 [facility] DATE CREATED AUTHOR AUTHOR'S ORGANIZ ATION 06/27/2023 [facility] DATE CREATED AUTHOR AUTHOR'S ORGANIZ ATION 06/28/2023 [employer] DATE CREATED AUTHOR AUTHOR'S ORGANIZ ATION 09/01/2023 [facility] DATE CREATED AUTHOR AUTHOR'S ORGANIZ ATION 09/04/2023 [facility] DATE CREATED AUTHOR AUTHOR'S ORGANIZ ATION 06/04/2024 [facility] Patient Care team informatio n (unrecognized section and content) Personnel Name: Anabell Degroot DO Address: Address: [address] [place], [place] [address], [address] [place], [place] [address] Team MemberRelationshipSpecialtyStart DateEnd Date Anabell Degroot DO [address] [facility] [address] [place] [address] PCP - General06/27/23Team MemberRelationshipSpecialtyStart DateEnd Date Anabell Degroot DO [address] [address] PCP - General06/27/23Team MemberRelationshipSpecialtyStart DateEnd Date Anabell Degroot DO PCP - General06/27/23Team MemberRelationshipSpecialtyStart DateEnd Date Anabell Degroot DO PCP - General06/27/23 Reason for Visit (unrecogniz ed section and content) SpecialtyDiagnoses / ProceduresReferred By ContactReferred To ContactCardiology Diagnoses Femoral bruit Procedures Vascular US PVR without exercise Guillermina Goldstein MD [address] [facility] [address], [address] [place] [address] Referral IDStatusReT[facility] DateExpiration DateVisits RequestedVisits [id number] Perform Procedure [id number] / ProceduresReferred By ContactReferred To ContactRadiology Diagnoses Abnormal electrocardiogram (ECG) (EKG) Encounter for preprocedural cardiovascular examination Procedures Nuclear Stress Test CHG MYOCARDIAL SPECT MULTIPLE STUDIES CHG MYOCARDIAL SPECT SINGLE STUDY AT REST OR STRESS CO CV STRS TST XERS&/OR RX CONT ECG W/O I&R CO CV STRS TST XERS&/OR RX CONT ECG I&R ONLY CO CV STRS TST XERS&/OR RX CONT ECG TRCG ONLY CO CV STRS TST XERS&/OR RX CONT ECG W/SI&R Guillermina Goldstein MD [address] [place], [place] [address] Referral IDStaFisher-Titus Medical [facility] DateExpiration DateVisits RequestedVisits [id number]/[id number] / Procedures Referred By ContactReferred To ContactCardiology Diagnoses Heart murmur Pre-operative cardiovascular examination Procedures Transthoracic Echo (TTE) Complete CO ECHO TRANSTHORC R-T 2D W/WO M-MODE REC F-UP/LMTD CO DOP ECHOCARD COLOR FLOW VELOCITY MAPPING CO DOP ECHOCARD PULSE WAVE W/SPECTRAL F-UP/LMTD STD Guillermina Goldstein MD [address] [place] [address], [address] [address] Referral IDStatusasonJerome DateExpiration DateVisits RequestedVisits [id number] Perform Procedure FOR RECORDS PERTAINING TO PATIENTS [...] BE BASED ON THE PRIMARY CLINICAL RECORDS. [facility] [employer] [facility]. provides no warranty or guarantee of the accuracy or completeness of information in this document.
== END 2025-09-03 11:16 | disposition home or self-care (01) ==
LOC: WC 11:15
PROVIDERS: PCP Emergency Medicine; Visit Provider Physician Assistant
DX: L97.525 Non-pressure chronic ulcer of other part of left foot with muscle involvement without evidence of necrosis (principal)
CPT/HCPCS: 11043

== ENCOUNTER 2025-09-25 11:07 | Outpatient (OUT) | payer OTHER, SELFPAY ==
--- OUTSIDE RECORDS SUMMARY | 2025-09-25 11:10 | XMS_ITS | Patient Health Record ---
Author Organization [facility] Address [facility] [address] Care Team Providers Care Software Quality Assurance Specialist Name Role Phone Mitch Gamboa Unavailable [phone] Reason For Referral No Information Plan Of Treatment No Information Insurance Providers Payer Name Payer Address Payer Phone Subscriber Number Group Number Insured Name Patient Relationship to Insured Coverage Start Date Coverage End Date [facility] [address] [place] [address] [id number], ScottSelf - patient is the insured
--- OUTSIDE RECORDS SUMMARY | 2025-09-25 11:10 | XMS_ITS | Clinical Summary ---
Author Organization [facility] Address [address] [place] [address] Care Team Providers Care Deep Well Contractor Name Role Phone Marguerite Degroot MD Primary Care Provider [phone] Allergies No known active allergies Medications MedicationSigDispense [...] RecordedSex Assigned at BirthNot on file Legal VtoZynu2701/04/2023 11:25 PM EDTGender IdentityNot on fileSexual Orientation Not on file Plan of Treatment Not on file Insurance * Guarantor: Guy ArmijoAccount TypeRelation to PatientDate of BirthPhone Billing AddressPersonal/TwwixfFohb11/03/1971 [facility] [place] [address] [place] [address] Care Teams Team MemberRelationshipSpecialtyStart DateEnd Date Marguerite Degroot MD PCP - GeneralFamily Txtmdosv57/9/23
--- OUTSIDE RECORDS SUMMARY | 2025-09-25 11:10 | XMS_ITS | Clinical Summary ---
Author Organization [facility] Address [address] [place] [address] Phone Care Team Providers Care Fitter Mechanic Name Role Phone Marguerite Degroot Primary Care Provider [phone] Allergies No known active allergies Social History Tobacco UseTypesPacks/DayYears UsedDateSmoking Tobacco: Never AssessedSex and Gender InformationValueDate RecordedSex Assigned at BirthNot on fileLegal Sex Male06/22/2023 3:19 PM EDTGender IdentityNot on fileSexual OrientationNot on file Last Filed Vital Signs Vital SignReadingTime TakenCommentsBlood Yfdhjuhk735/6010 11:20 AM EDT Bjhwf796208/15/2023 11:20 AM EDTTemperature--Respiratory Rate--Oxygen Saturation-- Inhaled Oxygen Concentration--Tcqhrl53 kg (205 lb)08/15/2023 11:20 AM EDTHeight 190.5 cm (6' 3 )08/15/2023 11:20 AM EDTBody Mass Index25.6208/15/2023 11:20 AM EDT Plan of Treatment Health MaintenanceDue DateLast DoneCommentsCT Ljzjmrngwgpy66/03/1971Colonoscopy 1970Colorectal Cancer Phchcposg29/03/1971FIT-DNA (Cologuard)1970FIT 1970HIV Whlgdteps51/03/1971Lipid Panel1970 3928Cmsklqbefceyp85/03/1971 Yearly Adult Pwdulocz15/03/1971MMR Vaccines (1 of 1 - Standard series)12/24/1971 Diabetes Oukygxmnn56/03/1989Hepatitis C Pxkxbvdgk65/03/1989Hepatitis B Vaccines (1 of 3 - 19+ 3-dose series)1989DTaP/Tdap/Td Vaccines (1 - Tdap)1992 PSA Prostate Cancer Vxzgmgquq21/03/2021neumococcal Vaccine (1 of 1 - PCV) 2020Zoster [...] ArmijoAccount TypeRelation to PatientDate of BirthPhone Billing AddressPersonal/SlmppfGaao95/03/1971 [facility] [place] [address] Care Teams Team MemberRelationshipSpecialtyStart DateEnd Date Marguerite Degroot DO [address] [place] [address] PCP - GeneralFamily Eknynibr56/24/23
--- OUTSIDE RECORDS SUMMARY | 2025-09-25 11:10 | XMS_ITS | Patient Health Record ---
Author Organization [facility] Address [address] [place] [address] Care Team Providers Care Stock Puller Name Role Phone Angel Morrissey Primary Care Provider Reason For Referral No Information Medications Medication SIG (Take, Route, Frequency, Duration) Notes Start Date End Date Status Albuterol Sulfate HFA 108 (9 0 Base) MCG/ACT Aerosol Solution 2 puffs as needed Inhalation every 6 hrs 11/14/2017Active Social History Tobacco Use: Social History Observation Description Date Details (start date - stop date) Current Smoker NA - NA Social History GeneralSocial InfoQuestionAnswerNotesTransition of Care:ER/UC/hospital since last office visit?NoSpecialist seen since last office visit?NoDepression Screening (PHQ-9):Little interest or pleasure in doing thingsNot at allFeeling down, depressed, or hopelessNot at allTrouble falling or staying asleep, or sleeping too muchNot at allFeeling tired or having little energyNot at allPoor appetite or overeatingNot at allFeeling bad about yourself-or that you are a failure or have let yourself or your family downNot at allTrouble concentrating on things, such as reading the newspaper or watching televisionMore than half the daysMoving or speaking so slowly that other people could have noticed. Or the opposite being so fidgetyor restless that you have been moving around a lot more than usualMore than half the daysThoughts that you would be better off , or of hurting yourself in some wayMore than half the days(Consider Suicide Assessment Risk)Substance abuse/mental health issues of patient/familyPatient - Caffeine UseAbility to understand healthcare/treatmentPatient:GoodTobacco Screen:When did you start smokingpatient was 18Are you a:current smoker? How often do you smoke cigarettes?every day? How many cigarettes a day do you smoke? 11-20? How soon after you wake up do you smoke your first cigarette?6-30 min? Are you interested in quitting?Not ready to quitSexual Hx:Had sex in the last 12 months (vaginal, oral, or anal)?NoHave you ever had an STD?NoSocial/Support Concerns:Patient:NoAlcohol Screening:Did you have a drink containing alcohol in the past year?WdFmcpby9ZwnlhxokufbtcsGnedcdhqMhsibavetj Screening (PHQ-2):Little interest or pleasure in doing thingsNoFeeling down depressed or hopelessNo Behaviors affecting healthPoor/Risky Behaviors:Denies-Communication Barrier: Language Barrier?:No Problems Problem Type SNOMED Code ICD Code Onset Dates Problem Status W/U Status Risk Notes Problem Chronic obstructive pulmonary disease (47008239) Chronic obstructive pulmonary disease (COPD) (J44.9) Activeconfirmed Plan Of Treatment No Information Insurance Providers Payer Name Payer Address Payer Phone Subscriber Number Group Number Insured Name Patient Relationship to Insured Coverage Start Date Coverage End Date z[employer] [address] [place] [address] [id number] Skyler RUTHERFORD - patient is the insuredzMEDICAID [facility] after [employer] [address] [place] [id number], SCOTTSelf - patient is the insured Medical (General) History Medical History History ICD Code LEVEL 3 COPDHospitalization History Reason Date(Month/Year) COPD 2008
--- OUTSIDE RECORDS SUMMARY | 2025-09-25 11:23 | XMS_ITS | CCD ---
Author Organization [facility] Care Team Providers Care Director Card Name Role Phone Anabell Degroot Primary Care Physician IMAN ROBBINS Attending Unavailable IMAN ROBBINS Admitting Unavailable ARASH, DR ROBIN Michael Primary Care Unavailable ARASH, DR ROBIN Michael Primary Care Unavailable MARILYNERTYSHABNAM Admitting Unavailabl e CLOUGHERTYSHABNAM Attending Unavailabl e CLOUGHERTYSHABNAM Attending Unavailabl e CLOUGHERTYSHABNAM Admitting Unavailabl e RAASH, DR ROBIN Michael Primary Care Unavailable ARASH, [...] (Original)albuterol HFA 90 mcg/inh MDI (8 sources)Start: 91-61-7830xfzr 180 ug by inhalation every two hoursalbuterol HFA 90 mcg/inh MDI 180 mcg, 2 puff(s), Inhalation, q2hr Shortness of breath or wheezing, 8.5 gm, Refill(s) 0, [facility], 191, cm, 10/06/21 9:14:00 EST, Height/Length Dosing, 100, kg, 10/06/21 9:14:00 EST, Weight Dosing Start Date: 10/11/21 Status: Orderedapixaban 5 mg oral tablet (16 sources)Factor Xa InhibitorStart: 92-27-0492sqmv 1 tablet by mouth twice dailyEliquis 5 mg oral tablet 5 mg = 1 tab(s), Oral, BID, # 60 tab(s), Refills(s) 3, Pharmacy: [facility] 1985, 191, cm, 11/01/21 13:08:00 EST, Height/Length Dosing, 97.2, kg, 11/01/21 13:07:00 EST,Weight Dosing Start Date: 11/01/21 Status: Ordereddexamethasone 6 mg oral tablet (8 sources)CorticosteroidStart: 30-99-2946ezmd 1 tablet by mouth once daily dexamethasone 6 mg oral tablet 6 mg = 1 tab(s), Oral, Daily, # 4 tab(s), Refills(s) 0, Pharmacy: [facility], 191, cm, 10/06/21 9:14:00 EST, Height/Length Dosing, 100, kg, 10/06/21 9:14:00 EST, Weight Dosing Start Date: 10/11/21 Status: Orderedibuprofen 400 mg oral tablet (9 sources)Nonsteroidal Anti-inflammatory DrugStart: 44-19-0084vdmj 400 mg by mouth every six hours as needed for painibuprofen 400 mg, Oral, q6hr, PRN as needed for pain, Refills(s) 0 Start Date: 11/01/21 Status: OrderedIbuprofen CAPS TAKE 4 CAPSULE Daily Quantity: 0 Refills: 0 Ordered: 27-Jun-2023 DO Active Completed/Discontinued Medications MedicationDrug Class(es)DatesSig (Normalized)Sig (Original)aspirin 81 mg delayed release oral tablet (1 source)Platelet Aggregation Inhibitor, Nonsteroidal Anti-inflammatory Drug Start: 95-27-3098cxxp 1 tablet by mouth once dailyAspirin 81 MG Oral Tablet Delayed Release TAKE 1 TABLET DAILY. Quantity: 90 Refills: 3 Ordered: 27-Jun-2023 Guillermina Goldstein MD Start : 27-Jun-2023 Activeregadenoson (Lexiscan) injection 0.4 mg (2 sources)Start: 08-15-2023 End: 10-23-3889qjwsxrngtot (Lexiscan) injection 0.4 mg Problems Active Problems Problem ClassificationProblemDateDocumented DateEpisodic/ChronicChronic obstructive pulmonary disease and bronchiectasis (10 sources)Chronic obstructive lung disease; Translations: [Chronic obstructive pulmonary disease, unspecified]Onset: 912585-10-8292DkrsfakYtgeyfo ulcer of skin (5 sources)Non-pressure chronic ulcer of other part of left foot with fat layer exposed; Translations: [N-PRS ULCR OTH PRT LT FT FAT EXPOS]Onset: 05-24-2022 ChronicDiabetes mellitus without complication (1 source)Hyperglycemia, unspecified; Translations: [HYPERGLYCEMIA UNSPECIFIED] Onset: 59-74-3506ThrvivizZbbgqflrs of lipid metabolism (9 sources)Hypercholesterolemia; Translations: [Hyperlipidemia]17-94-9949Khdkkcv Other circulatory disease (5 sources)Other specified peripheral vascular diseases; Translations: [OTH SPEC PERIPHERAL VASC DISEASES]Onset: 80-79-6867HwttudmOdkjg circulatory disease (3 sources)Femoral bruit; Translations: [Other symptoms involving cardiovascular system]85-34-0827JnkeqjdzLxcmn lower respiratory disease (3 sources)Disorder of lung; Translations: [Other disorders of lung]Onset: 46-29-5346RlklurewQjfhw non-traumatic joint disorders (1 source)Other specified arthritis, unspecified site; Translations: [OTHER SPECIFIED ARTHRITIS UNS SITE]Onset: 04-85-1259EvyhqneXsiqv nutritional; endocrine; and metabolic disorders (1 source)Overweight in adulthood with body mass index of 25 or more but less than 30; Translations: [Overweight]EpisodicOther skin disorders (1 source)Epidermal cyst; Translations: [EPIDERMAL CYST]Onset: 07-06-2022 EpisodicOther skin disorders (1 source)Corns and callosities; Translations: [CORNS AND CALLOSITIES]Onset: 89-53-2706WrfxzmjgMucy and subcutaneous tissue infections (1 source)Other specified local infections of the skin and subcutaneous tissue; Translations: [OTH SPEC LOC INFECT SKIN SUBQ TISS]Onset: 36-39-7725Lfdkzkme Substance-related disorders (10 sources)Smoker; Translations: [Nicotine dependence, cigarettes, uncomplicated]Onset: 955187-43-6549AkkncthKkikzul on above:Added secondary to documentation in Social History.1-2 PACKS DAILY;Superficial injury; contusion (5 sources)Blister (nonthermal), left foot, sequela; Translations: [BLISTER NONTHERMAL LT FOOT SEQUELA]Onset: 36-16-7678Sjqpvbto Past or Other Problems Problem ClassificationProblemDateDocumented DateEpisodic/ChronicHeart valve disorders (5 sources)Heart murmur; Translations: [Undiagnosed cardiac murmurs]Onset: 611245-11-6371RccdibbfXelps circulatory disease (2 sources)Other specified symptoms and signs involving the circulatory and respiratory systems; Translations:[Other specified symptoms and signs involving the circulatory and respiratory systems]Onset: 31-84-8644QeudlwcrDpokp screening for suspected conditions (not mental disorders or infectious disease) (3 sources)Electrocardiogram abnormal; Translations: [Nonspecific abnormal electrocardiogram [ECG] [EKG]]Onset: 39-63-8214ZthxmuayXzbklaqnwsmt (3 sources)cyst removed( Confirmed )05-43-1365Hzmbdrlzwcfd (5 sources)cyst -07-3645 Results Test NameValueInterpretationReference RangeFacilityConsent for Treatmenton 65-92-2154Vpgxmuo for [id number]#1.00TIFF [facility] GeneralOncology Progress Noteon 23-55-5386Gklcbtey Progress NotePatient: CHAKA DE LEÓN Age: 52 [...] He was prescribed Eliquis at discharge from [facility]. He also has a history of some [...] overal grwoing very slowly since 2018 now 16j14xg no new complaints. / 08/30/23 doing well. [...] Problem list: All Problems Smoker / IMO 096805 / Confirmed Added secondary to documentation in Social History. Resolved: COPD / SNOMED CT 04940288 Resolved: cyst removed Resolved: Hypercholesterolemia / SNOMED CT 88046140 Canceled: Tobacco use / SNOMED CT NTHU5576-3191-7M13-P9D9-180728ZV6WL5 Added secondary to social history documentation. Histories Past Medical History: Resolved COPD (43673853): Resolved. cyst removed: Resolved. Hypercholesterolemia (35973974): Resolved. Family History: No family history items [...] Comment: 1 ppd - 08/19/2019 09:22 - Lsia Fajardo RN . Physical Examination Vital Signs [...] . Impression and Plan Diagnosis Pulmonary embolus (RAV07-OQ I26.99, Working, Medical). COVID-19 with pulmonary comorbidity (TWC02-GL U07.1, Working, Medical). .. Pulmonary Embolus d/t COVID completed 6 mos El (more content not included)...[facility] GeneralOutside Progress Noteon 82-91-9402Xqxueme Progress Note [id number]#1.00TIFFNormalGerman HospitalUS Heart TransthoracicOrdered By: Guillermina Goldstein on 06-24-0439QG A4C EF 74.7[facility] Work Phone: [facility] Work Phone: US Heart Transthoracicon 08-18-[address], [address] [place] [address] TRANSTHORACIC ECHOCARDIOGRAM REPORT Patient Name: CHAKA Robbisn Physician: [id number] Guillermina Goldstein MD, [facility] Study Date: 08/15/2023 Ordering Provider: [id number] GUILLERMINA GOLDSTEIN MRN/PID: [id number] Fellow: Nurse: Date of /Age: 3 1970 / 52 years Bluing Oven Tender: Heaven Haiku RDCS, RVT Gender: M Additional Staff: Height: 190.50 cm Admit Date: Weight: 92.99 kg Admission Status: BSA: 2.22 m2 Department Location: [facility] Blood Pressure: 126 /72 mmHg Study Type: TRANSTHORACIC ECHO (TTE) COMPLETE Diagnosis/ICD: Cardiac murmur, unspecified-R01.1; Encounter for preprocedural cardiovascular examination-Z01.810 Indication: Abnormal EKG, POC-Dr. Robbins for Foot Ulcer/Date Pending, COPD, Hyperlipidemia, 2/6 Systolic Murmur, Tobacco Abuse, Overweight, Femoral Artery Bruit CPT Codes: Echo Complete w Full Doppler-05947 Study Detail: The following Echo studies were [...] content not included)...Guillermina Manzo MD - 08/18/2023 [facility] [address], [address], [place] [address] TRANSTHORACIC ECHOCARDIOGRAM REPORT Patient Name: CHAKA DE LEÓN Reading Physician: [id number] Guillermina Goldstein MD, [facility] Study Date: 08/15/2023 Ordering Provider: [id number] GUILLERMINA GOLDSTEIN MRN/PID: [id number] Fellow: Nurse: Date of /Age: 3 1970 / 52 years Bluing Oven Tender: Heaven Simmons RDCS, RVT Gender: M Additional Staff: Height: 190.50 cm Admit Date: Weight: 92.99 kg Admission Status: BSA: 2.22 m2 Department Location: [facility] Blood Pressure: 126 /72 mmHg Study Type: TRANSTHORACIC ECHO (TTE) COMPLETE Diagnosis/ICD: Cardiac murmur, unspecified-R01.1; Encounter for preprocedural cardiovascular examination-Z01.810 Indication: Abnormal EKG, POC-Dr. Robbins for Foot Ulcer/Date Pending, COPD, Hyperlipidemia, 2/6 Systolic Murmur, Tobacco Abuse, Overweight, Femoral Artery Bruit CPT Codes: Echo Complete w Full Doppler-94342 Study Detail: The following Echo studies were [...] mmHg PIEDV: 2.00 m/s PADP: 19.0 mmHg [id number] Guillermina Goldstein MD, [facility] Electronically signed on 08/18/2023 at 2:33:32 PM Final [facility] Work Phone: Vascular US PVR without exerciseon 08-18-[address], [place] [address] Vascular Lab Report VASC US PVR WITHOUT EXERCISE Patient Name: CHAKA Robbins Physician: [id number] Guillermina Goldstein MD, FACC Study Date: 08/15/2023 Ordering Provider: [id number] GUILLERMINA GOLDSTEIN MRN/PID: [id number] Fellow: Technologist: Heaven Simmons RD, RVT Date of /Age: 3 1970 / 52 years Technologist 2: Gender: M Admission Status: Outpatient Location Performed: [facility] Diagnosis/ICD: Other specified symptoms and signs [...] Left Brachial Pressure 112 mmHg 101 mmHg [id number] Guillermina Goldstein MD, FACC Final Guillermina Manzo MD - 08/18/[address], Suite [facility], [place] [address] Vascular Lab Report VASC US PVR WITHOUT EXERCISE Patient Name: CHAKA Robbins Physician: Elkin Goldstein MD, FACC Study Date: 08/15/2023 Ordering Provider: [id number] GOLDSTEIN MRN/PID: [id number] Fellow: Technologist: Heaven Simmons RDCS, T Date of /Age: 3 1970 / 52 years Technologist 2: Gender: M Admission Status: Outpatient Location Performed: [facility] Diagnosis/ICD: Other specified symptoms and signs [...] Left Brachial Pressure 112 mmHg 101 mmHg [id number] Guillermina Goldstein MD, FACC Final [facility] Work Phone: [facility] PVR without exerciseOrdered By: Guillermina Goldstein on 64-87-2398ZrljzlzgohBerger Hospital Work Phone: nm Heart Perfusion W stress and W radionuclide Robina 90-43-2979Oftnlv WishGenieiscan [place] cardiac perfusion stress test. No evidence of ischemia or myocardial infarction by perfusion imaging. Normal left ventricular systolic function, ejection fraction 64%. No previous studies are available for comparison. Signed by: Guillermina Goldstein 08/15/2023 6:10 PM Dictation workstation: [id number] By: Guillermina Goldstein and Giannuzzi Michael STUDY: MYOCARDIAL PERFUSION STRESS TEST WITH LEXISCAN Performing facility: [facility], [address] [place] [address], [address], [address] Provider: Guillermina Goldstein MD, FACC PCP: Dr. Daniel Degroot Supervising provider: Guillermina Goldstein MD, FACC INDICATION: Abn EKG Pre-operative risk assessment for Toe surgery scheduled at [place] on TBD. HISTORY: Gender: M; Age: 52 y/o ; Height: HT 190.5 cm cm; Weight: WT 92.987 kg kg. Abnormal EKG; High Cholesterol; COPD; Currently smoking. COMPARISON: No comparison. ACCESSION NUMBER(S): [id number] ORDERING CLINICIAN: GUILLERMINA GOLDSTEIN TECHNIQUE: ONE DAY [...] was evidence of apical attenuation artifact. [facility] ERODALGuillermina Goldstein MD - 08/15/2023 Interpreted By: Guillermina Goldstein and Giannuzzi Michael STUDY: MYOCARDIAL PERFUSION STRESS TEST WITH LEXISCAN Performing facility: [facility], [address] [place] [address], [address], [place] [address] [facility] Provider: Guillermina Goldstein MD, FACC PCP: Dr. Daniel Degroot Supervising provider: Guillermina Goldstein MD, FACC INDICATION: Abn EKG Pre-operative risk assessment for Toe surgery scheduled at [place] on TBD. HISTORY: Gender: M; Age: 52 y/o ; Height: HT 190.5 cm cm; Weight: WT 92.987 kg kg. Abnormal EKG; High Cholesterol; COPD; Currently smoking. COMPARISON: No comparison. ACCESSION NUMBER(S): [id number] ORDERING CLINICIAN: GUILLERMINA GOLDSTEIN TECHNIQUE: ONE DAY [...] Guillermina Goldstein 08/15/2023 6:10 PM Dictation workstation: [id number] [facility] Work Phone: Radiology Study observation (narrative)[facility] Work Phone: nm Heart Perfusion W stress and W radionuclide IV Ordered By: Guillermina Goldstein on 12-10-9390DvaahoaxusBerger Hospital Work Phone: NUCLEAR STRESS TESTon 85-14-1056NPQBNOG STRESS TEST Interpreted By: Guillermina Goldstein, and Shalom Correia STUDY: MYOCARDIAL PERFUSION STRESS TEST WITH LEXISCAN Performing facility: [facility], [address] [place] [address], [address], [address] Provider: Guillermina Goldstein MD, FACC PCP: Dr. Daniel Degroot Supervising provider: Guillermina Goldstein MD, FACC INDICATION: Abn EKG Pre-operative risk assessment for Toe surgery scheduled at [place] on TBD. HISTORY: Gender: M; Age: 52 y/o ; Height: HT 190.5 cm cm; Weight: WT 92.987 kg kg. Abnormal EKG; High Cholesterol; COPD; Currently smoking. COMPARISON: No comparison. ACCESSION NUMBER(S): [id number] ORDERING CLINICIAN: GUILLERMINA GOLDSTEIN TECHNIQUE: ONE DAY [...] Guillermina Goldstein 08/15/2023 6:10 PM Dictation workstation: [id number] Grady Memorial Hospital Comment on above:Order Comment: Rad Selected: [facility] to schedule and to readTRANSTHORACIC ECHO (TTE) COMPLETEon 36-51-1768FVQMSJGQVIQHP ECHO (TTE) [address], [address] [place] [address] TRANSTHORACIC ECHOCARDIOGRAM REPORT Patient Name: CHAKA DE LEÓN Reading Physician: [id number] Goldstein MD, [facility] Study Date: 08/15/2023 Ordering Provider: [id number] GOLDSTEIN MRN/PID: [id number] Fellow: Nurse: Date of /Age: 3 1970 / 52 years Bluing Oven Tender: Heaven Simmons [facility], T Gender: M Additional Staff: Height: 190.50 cm Admit Date: Weight: 92.99 kg Admission Status: BSA: 2.22 m2 Department Location: [facility] Blood Pressure: 126 /72 mmHg Study Type: TRANSTHORACIC ECHO (TTE) COMPLETE Diagnosis/ICD: Cardiac murmur, unspecified-R01.1; Encounter for preprocedural cardiovascular examination-Z01.810 Indication: Abnormal EKG, POC-Dr. Robbins for Foot Ulcer/Date Pending, COPD, Hyperlipidemia, 2/6 Systolic Murmur, Tobacco Abuse, Overweight, Femoral Artery Bruit CPT Codes: Echo Complete w Full Doppler-98559 Study Detail: The following Echo studies were [...] mmHg PIEDV: 2.00 m/s PADP: 19.0 mmHg [id number] Guillermina Goldstein MD, [facility] Electronically signed on 08/18/2023 at 2:33:32 PM Final [facility] HospitalVAS US PVR WITHOUT EXERCISEon 58-96-7460HZTI US PVR WITHOUT EXERCISENorth [address], [place] [address] Vascular Lab Report [facility] US PVR WITHOUT EXERCISE Patient Name: CHAKA CHATMANCharles Itzel Physician: [id number] Guillermina Goldstein MD, [facility] Study Date: 08/15/2023 Ordering Provider: [id number] GUILLERMINA GOLDSTEIN MRN/PID: [id number] Fellow: Technologist: Heaven Simmons RD, T Date of /Age: 3 1970 / 52 years Technologist 2: Gender: M Admission Status: Outpatient Location Performed: [facility] Diagnosis/ICD: Other specified symptoms and signs [...] Left Brachial Pressure 112 mmHg 101 mmHg [id number] Guillermina Goldstein MD, FACC Final [facility] HospitalVascular US PVR without exerciseon 25-18-4573Duypbvgcb Study observation (narrative)[facility] Work Phone: CT Chest w/ Contraston 76-88-4359EX Chest w/ Contrast Exam Date/Time: 08/10/2023 09:25 [...] Contrast: Isovue 300 Contrast amount in ml's: 100NoBrecksville VA / Crille HospitalConsent for Treatmenton 10-31-8410Oeqjbpx for Treatment [id number]#1.00TIFUK HealthcareOutside Progress Noteon 60-12-2866Wgdvoos Progress Note [id number]#1.00[facility] HospitalInsurance Correspondenceon 70-33-3682Kebvpksgq Correspondence [id number]#1.00[facility] HospitalOffice Visit (Cardiology)on 48-56-6296Lsapsb-up visitDiagnoses/Problems Assessed Pre-operative cardiovascular examination (V72.81) (Z01.810) [...] we can help. You may also call [phone] for free resources and assistance.; Status:Complete - [...] This is scheduled with Dr. Robbins in [place]. The patient is not a very good [...] to (more content not included)...NormalUH TouchworksTobacco Screening.on 42-76-7975Hkur risk assessmenta) No falls within the last yearPeaceHealth HeartEunice Ventures 600 DO Work Phone: Tobacco use status CPHSa) YesPeaceHealth HeartOxford Performance Materials [place] 600 DO Work Phone: Tobacco Screening.YesPeaceHealth Hurricane PartyDayton 600 DO Work Phone: Physician Orderon 17-20-7671Gyqpopmgz OrderScheduled in [place] on 06/29. Spoke with Monika at [employer] and let her know I got patient scheduled. [id number]#1.00CD:127NoBrecksville VA / Crille HospitalXR FOOT LT MIN 3 VIEWSon 18-71-7280MB FOOT LT MIN 3 VIEWSSTUDY: XR FOOT [...] Electronically authenticated by: ELHAM GOODE Date: 2022-04-11 16:53[facility] Vital Signs Date TimeVital SignValuePerforming OpvrumpzxDmvbhgdl34-19-2813 13:58-0500Heart rate79 /minC[facility] Clinic [facility]11-08-2023 13:58-0500 SaO2% (BldA) [Mass fraction]97 %[facility] 08-30-2023 13:58-0500Body ddisofuwegh44.88 [degF][facility]11-08-2023 13:57-0500Diastolic blood dcbbemnf86 mm[Hg][facility]11-08-2023 13:57-0500Mean blood apaagxti62 mm[Hg][facility]11-08-2023 13:57-0500 Systolic blood fkifwymr492 mm[Hg][facility] 08-30-2023 13:56-0500Respiratory rate14 /minC[facility] Clinic [facility] General10-24-2023 11:20-0400Body .[address] [place], [place] [address]10-24-2023 11:20-0400Body mass index (BMI) [Ratio]25.62 kg/m2Ely 1 [facility]10-24-2023 11:20-0400Body .99 kgEly 1 [facility]10-24-2023 11:20-0400Diastolic blood wsqfimkv68 mm[Hg]Randee 1[facility]10-24-2023 11:20-0400Heart rate73 /minEly 1[facility]10-24-2023 11:20-0400Systolic blood mm[Hg]Randee 1[facility]10-24-2023 08:42-0400 Body zzikts923.5 cmEly 2[facility]10-24-2023 08:42-0400 Body mass index (BMI) [Ratio]25.62 kg/m2Ely 2[facility] 08-15-2023 08:42-0400Body .99 kgEly 2[facility] 08-15-2023 08:42-0400Diastolic blood snpbasif05 mm[Hg]Randee 2[facility]10-24-2023 08:42-0400Systolic blood utjxfnvd981 mm[Hg]Randee 2 [facility]09-05-2023 11:21-0400Diastolic blood mekgqizd14 mm[Hg]Anabell Degroot Work Phone: [phone]-TiatqMeeker Memorial Hospital 600 DO Work Phone: [phone] 11:21-0400Systolic blood aoswzvbc52 mm[Hg] Anabell Sampson Degroot Work Phone: [phone]-LrpzhNorthland Medical Centerk 600 DO Work Phone: 1(349) 179-339109-05-2023 11:18-0400Body hbkdju526.5 cmElystony Degroot Work Phone: [phone]-LlwgdChildren'S Minnesotawalk 600 DO Work Phone: 1(344) [phone] 11:18-0400Body mass index (BMI) [Ratio] 25.62 kg/r8MxoqlAnabell Degroot Work Phone: [phone]-Ymgcp [facility] 600 DO Work Phone: 1(181) 474-980609-05-2023 11:18-0400Body surface area Derived from formula2.22 b2NhhqeAnabell Degroot Work Phone: [phone]-Cyfre [facility] 600 DO Work Phone: 1(254) 389-766509-05-2023 11:18-0400Body ieicxg11.99 kgAnabell Degroot Work Phone: [phone]-AbakuNorthland Medical Centerk 600 DO Work Phone: 1(620) 327-794209-05-2023 11:18-0400Diastolic blood vwupgilr01 mm[Hg] Anabell Degroot Work Phone: [phone]-AndbyNorthland Medical Centerk 600 DO Work Phone: 1(593) [phone] 11:18-0400Heart rate64 /minElyse Sampson Degroot Work Phone: [phone]-XrbteSt. Cloud VA Health Care Systemk 600 DO Work Phone: 1(446) 617-957709-05-2023 11:18-0400Systolic blood umnyakkk666 mm[Hg] Anabell Degroot Work Phone: [phone]-FxrphMeeker Memorial Hospital 600 DO Work Phone: 1(233) 577-496311-03-2022 10:30-0400Blood Pressure LocationC[facility] Clinic [facility]11-03-2022 10:30-0400Body cqedlkhisse78.24 [degF][facility]11-03-2022 10:30-0400 BP/Pulse Patient PositionCleveland Clinic [facility] General 08-25-2022 10:30-0400Diastolic blood lkonpjnx01 mm[Hg][facility]11-03-2022 10:30-0400Heart rate75 /minK[facility] Health [facility]11-03-2022 10:30-0400Mean blood xdkowvrs57 mm[Hg] Quintin [facility]11-03-2022 10:30-0400Respiratory rate19 /minQuintin [facility]11-03-2022 10:30-0400 SaO2% (BldA) [Mass fraction]95 %[facility] 08-25-2022 10:30-0400Systolic blood hfaoavoj367 mm[Hg][facility]04-11-2022 12:33-0400Blood Pressure LocationAdwoa Monahan [address]04-11-2022 12:33-0400Body ffgjyisytlk05.7 [degF]Adwoa Monahan [address]04-11-2022 12:33-0400 BP/Pulse Patient PositionAdwoa Monahan [address]04-11-2022 12:33-0400 Diastolic blood wxowsafl20 mm[Hg]Adwoa Monahan [address]04-11-2022 12:33-0400Heart rate91 /Staci Monahan [address]04-11-2022 12:33-0400Mean blood cabvsude82 mm[Hg]Adwoa Monahan [address] [place], [place] 1290304-11-2022 12:33-0400 Respiratory rate17 /Staci Monahan [address] [place], [place] 1290304-11-2022 12:33-3611XrJ7% (BldA) [Mass fraction]96 %Adwoa Monahan [address] [place], [place] 1290304-11-2022 12:33-0400 Systolic blood mlfphcyp925 mm[Hg]Adwoa Monahan [address] [place] [address] Encounters Encounter DateEncounter TypeCare ProviderFacilityStart: 09-05-2024 End: 29-82-5753Gdu-admission assessmentQuintin [facility] Start: 08-31-2023 End: 54-11-2475nwnswtbtmgJNPEVLECO D ZALUIS ALBERTORoseann AvailableStart: 08-30-2023 End: 35-83-5862iettdhtwldEpylfwk AdamowiczFacility:FTMCStart: 08-30-2023 End: 27-98-5053Tvohirj encounter procedureQuintin [facility] Start: 08-15-2023 End: 70-18-0866Imctxtfxps hospital visit by Eric Beavers Stress [facility] 1 [facility]aryStart: 08-15-2023 End: 41-36-0399Ijabmri encounter status[address] Work Phone: Start: 08-15-2023 End: 55-67-2058Jnvqotqwow hospital visit by Eric Beavers Echo/Vasc Room 2[facility] InfirmaryComment on above:Femoral bruitHeart murmur; Pre-operative cardiovascular examinationStart: 08-15-2023 End: 29-42-6042aounrhscpeVRDBFO M [facility] Hospitaltart: 08-15-2023 End: 67-09-3237Spqdvmhqp for preprocedural cardiovascular examinationANABELL Braden [facility] Hospitaltart: 08-10-2023 End: 83-11-9154vwutscuszfLspwiih AdamowiczFacility:FTMCStart: 08-10-2023 End: 47-88-2995Qvcnfwj encounter procedureQuintin [facility] Start: 21-40-9957Bqzica consultation new/estab patient 60 minElyse C Mikayla Work Phone: [phone]-Idjda [facility] 600 DO Work Phone: Start: 12-76-6295dbcegmbbpjGfJessica Goldstein Facility:13942Nfhch: 22-53-0934jfyqqvcymhQtJessica Logan AguilaabdulazizFacility:UHCStart: 08-25-2022 End: 87-75-0223Wcczfrc encounter procedureQuintin [facility] Start: 08-16-2022 End: 90-46-8765Thqzhcv encounter procedureAdwoa Gonzales Taniya [facility] Start: 06-20-2022 End: 41-82-7676xuejjyvcowBLFTW D HIGHLANDERFacility:T3Bzubc: 05-24-2022 End: 66-71-2358lusohrrzitBNMHB D HIGHLANDERFacility:F1Npgdp: 04-26-2022 End: 45-47-4550xdwpznvawmLZ ROBIN M RUGGLESFacility:R9Cjukh: 04-11-2022 End: 33-84-8358ficmujmabzYJ ROBIN Michael RUGGLESFacility:R9Tvosp: 01-31-2022 End: 97-74-2524Ctnqfhs encounter procedureAdwoa Pricehope [facility] Start: 01-28-2022 End: 70-87-0734Ljlxtbk encounter procedureEcu Health [facility] Hospitalgaston [facility] Start: 01-28-2022 End: 91-05-1844Juk-admission assessmentCristopher Stevenson [facility] Start: 08-90-3026moldnrslugEK ROBIN M RUGGLESFacility:H1 Start: 08-02-2021 End: 51-92-4049gunmmesfcnYMRBONZ O CLOUGHERTYFacility:P0Roujidb encounter status Anabell Degroot Work Phone: [phone]-[facility]jys[facility] 600 DO Work Phone: Procedures DateProcedureProcedure DetailPerforming ClinicianStart: 39-64-3606NNDTMIL STRESS TESTELYSE TINKERStart: 89-86-4584Dk strs tst xers&/or rx cont ecg trcg only Guillermina Goldstein MD Work Phone: Start: 24-18-8122HBOM US PVR WITHOUT EXERCISEELYSE TINKERStart: 26-72-1688THNWEJUVVBGQA ECHO (TTE) COMPLETEELYSE TINKERStart: 98-21-1962Xsc-invasive physiologic study extremity 3 Marilin Goldstein MD Work Phone: Start: 17-84-3160Mmwz tthrc r-t 2d w/wom-mode compl spec&colr Michael Goldstein MD Work Phone: cyst removedTimothy AdamowiczTonsillectomyElyse C Mikayla Work Phone: Plan of Treatment DateCare ActivityDetailAuthorStart: 32-25-3104QDO, Provider: Guillermina Goldstein, Status: Pen, Time: 11:30 AMFUV, Provider: Guillermina Goldstein, Status: Pen, Time: 11:30 AMWadena [facility] 600 DO Work Phone: Start: 09-19-2023 End: 10-42-2186Ybbgjwh encounter pbomlvgwo42/28/2023 11:30 AM EST Office Visit [place] [address] [place] [address] Guillermina Goldstein MD [address] [facility], [address] [place] [address] [facility] HospitalStart: 55-55-2780RIR, Provider: ARIANNA MCADAMS ULTRASOUND ,[id number], Status: Pen, Time: 9:45 AMPVR, Provider: ARIANNA MCADAMS ULTRASOUND ,[id number], Status: Pen, Time: 9:45 AMMP-[facility] 600 DO Work Phone: Start: 03-68-9065RQQK, Provider: ARIANNA HHVI ULTRASOUND 01,[id number], Status: Pen, Time: 8:45 AMECHO, Provider: ARIANNA HHVI ULTRASOUND 01,[id number], Status: Pen, Time: 8:45 AMMP-[facility] 600 DO Work Phone: Start: 27-08-0126ZNIBOI NUC, Provider: ARIANNA HHVI NUCLEAR 01,[id number], Status: Pen, Time: 8:00 AMSTRESS NUC, Provider: ARIANNA HHVI NUCLEAR 01,[id number], Status: Pen, Time: 8:00 AM[facility] 600 DO Work Phone: Start: 79-11-5469Zgdfvqnsw vaccinationInfluenza Vaccine (#1)[facility]: 42-83-5347Xcjwbi Vaccines (1 of 2)Zoster Vaccines (1 of 2)[facility]: 1992 DTaP/Tdap/Td Vaccines (1 - Tdap)DTaP/Tdap/Td Vaccines (1 - Tdap)[facility]: 51-14-3389Wusnblndh A Vaccines (1 of 2 - Risk 2- dose series)Hepatitis A Vaccines (1 of 2 - Risk 2-dose series)[facility]: 80-59-3356Shvljxmj mellitus screeningDiabetes ScreeningUnZanesville City Hospital: 35-98-6981Cbmuxqsoh C screening Hepatitis C ScreeningUnZanesville City Hospital: 1976 Pneumococcal Vaccine: Pediatrics (0 to 5 Years) and At-Risk Patients (6 to 64 Years) (1 - PCV)Pneumococcal Vaccine: Pediatrics (0 to 5 Years) and At-Risk Patients (6 to 64 Years) (1 - PCV)[facility]: 39-19-1969PQH Vaccines (1 of 1 - Standard series)MMR Vaccines (1 of 1 - Standard series)[facility]: 12-16-2260DYLPM-19 Vaccine (#1) COVID-19 Vaccine (#1)[facility]: 10-87-2185Qvvfskeuj B Vaccines (1 of 3 - 3-dose series)Hepatitis B Vaccines (1 of 3 - 3-dose series)[facility]: 16-05-4090JMX screeningHIV ScreeningReg[facility]: 37-64-0316Zvbey panelLipid PanelUnZanesville City Hospital: 69-24-9412Kgrhubjyq for malignant neoplasm of colonUnZanesville City Hospital: 90-90-2584Zfwmoi Adult PhysicalYearly Adult PhysicalUnBerger Hospital End: 71-39-3484YF Heart TransthoracicCHRISTUS [facility] Service Area Work Phone: Comment on above:Once for 1 Occurrences starting 08/15/2023 until 08/15/2023 End: 32-68-3160Toacrbvt US PVR without exerciseCHRISTUS ST. [facility] Service Area Work Phone: Comment on above:Once for 1 Occurrences starting 08/15/2023 until 08/15/2023 Payers DatePayer CategoryPayerPolicy [id number] 2..1.707838.3.57[id number] 2..1.580286.3.57[id number] 2..1.312441.3.57[id number] 2..1.364365.3.57[id number] 2..1.888947.3.57[id number] 2..1.796607.3.57[id number] 2.16.840.1.270888.3.57[id number] 2.16.840.1.784080.3.57[id number] 2.16.840.1.777298.3.579.2.57533-05-0027Sflgzqj60744 2.16.840.1.740915.3.579.[id number] 2.16.840.1.676851.3.579.2.614508-74-5675Uohwala745406 2.16.840.1.142411.3.579.[id number] 2.840.1.351398.3.579.2.792019-93-4966Vsghnzs200555 2.0.1.993451.3.57[id number] 2.0.1.611664.3.57[id number] 2..840.1.833089.3.579.[id number] 2.0.1.241776.3.57[id number] Social History DateTypeDetailFacilityTobaccoCigarettesRegency Hospital [facility] EastComment on above:1 ppdSex Assigned At BirthMalSt. Rita's HospitalTobacco smoking statusNo Smoking Status EnteredRegency Hospital Cleveland EastDaily caffeine consumptionDaily caffeine consumption-[facility] 600 DO Work Phone: Comment on above:1-2 PACKS DAILY;Tobacco smoking status NHISTobacco smoking consumption unknownWhite Hospital Work Phone: Start: 27-39-3375Pgv Assigned At BirthNot on file [facility] Work Phone: Start: 08-05-2023 End: 59-92-4401Bpqoulqe to SARS-CoV-2 (event)Not sureWhite Hospital Clinical Notes 11-01-2021 to 11-28-2023 Note Date & FgraSfxaQdzjscfd79-90-8583 Evaluation + Plan note Future Scheduled Tests Radiology* CT Chest, Low Dose Screening 11/28/23 [facility] 792320-88-4610 Hospital Discharge instructions Follow Up Care 08/26/2022 10:06:59 With:Quintin Vo Address: [address] [phone] Fax Business (1) When: Unknown Comments:f/u in [address] chest low dose screening prior to f/u in 1 year. If he talks to Dr. Degroot, she can order ct screening and do f/u and he will not need to see me. [facility]10-24-2022 Hospital Discharge instructions Follow Up Care 08/15/2022 13:08:07 With:Quintin Vo Address: [address] [phone] Fax Business (1) When: Unknown Comments:f/u with me or opal after ct ches with contrast in a year. [facility]01-10-2022 Hospital Discharge instructions Follow Up Care 11/01/2021 13:28:42 With:Quintin Vo Address: [address] [phone] Fax Business (1) When: Unknown Comments:finish Eliquis in JuneCT chest w/ contrast in 6mofollow-up with Dr. Dobbins in 6mo after scan [facility] + Plan note Future Appointments Appointment Date:01/31/2022 12:30:00 PM Scheduled Provider:Taniya HENRY, Adwoa Gonzales Location:FT.ONCOLOGY Appointment Type:ONC Office Visit 15 (FT) [facility] + Plan note Future Appointments Appointment Date:08/10/2022 12:30:00 PM Scheduled Provider:Quintin Vo DO Location:FT.ONCOLOGY Appointment Type:ONC Office Visit 15 (FT) Future Scheduled Tests Radiology* CT Chest w/ Contrast 08/02/22 [facility] + [facility] note Future Appointments Appointment Date:08/25/2022 10:15:00 AM Scheduled Provider:Quintin Vo DO Location:FT.ONCOLOGY Appointment Type:ONC Office Visit 30 (FT) [facility] note Future Scheduled Tests Radiology* CT Chest w/ Contrast 08/09/23 [facility] note Future Appointments Appointment Date:08/30/2023 02:00:00 PM Scheduled Provider:Quintin Vo DO Location:FT.ONCOLOGY Appointment Type:ONC Office Visit 15 (FT) [facility] + [facility] note Future Scheduled Tests Radiology* CT Chest, Low Dose Screening 11/28/23 [facility]* Diagnosis Femoral bruit documented in this encounter [facility] Work Phone: Evaluation note* Diagnosis Heart murmur Undiagnosed cardiac murmurs Pre-operative cardiovascular examination documented in this encounter [facility] Work Phone: Evaluation note* Diagnosis Femoral bruit documented in this encounter [facility] Work Phone: Evaluation note* Diagnosis Heart murmur Undiagnosed cardiac murmurs Pre-operative cardiovascular examination documented in this encounter [facility] Work Phone: Hospital course Narrative No data available for this section [facility] EastHospital Discharge instructions No data available for this section [facility] EastProgress note No data available for this section [facility] Summary Purpose Family History Unknown Family Member [...] This is scheduled with Dr. Robbins in [place]. The patient is not a very good [...] cardiovascular examination Procedures Transthoracic Echo (TTE) Complete WA ECHO TRANSTHORC R-T 2D W/WO M-MODE REC F-UP/LMTD WA DOP ECHOCARD COLOR FLOW VELOCITY MAPPING WA DOP ECHOCARD PULSE WAVE W/SPECTRAL F-UP/LMTD STD Guillermina Goldstein MD [address] [facility] 2, [facility] [address] [place] [address] Referral IDStatusReasonart DateExpiration DateVisits RequestedVisits [id number] Perform Procedure [id number] / ProceduresReferred By ContactReferred To ContactCardiology Diagnoses Femoral bruit Procedures Vascular US PVR without exercise Guillermina Goldstein MD [address] [facility] [address], [address] [place] [address] Referral IDStatusReasonSequatchie DateExpiration DateVisits RequestedVisits [id number] Perform Procedure Additional Source Comments (unrecognized sect ion and content) No Status Records FoundNo Status Records FoundNo Status Records FoundNo Status Records FoundNo Status Records FoundNo Status Records Found INFORMATION SOURCE (unrecogn ized section and content) DATE CREATED AUTHOR 07/19/2022 [facility] DATE CREATED AUTHOR AUTHOR'S ORGANIZ ATION 06/27/2023 [facility] DATE CREATED AUTHOR AUTHOR'S ORGANIZ ATION 06/28/2023 [facility] DATE CREATED AUTHOR AUTHOR'S ORGANIZ ATION 09/01/2023 [facility] DATE CREATED AUTHOR AUTHOR'S ORGANIZ ATION 09/04/2023 [facility] DATE CREATED AUTHOR AUTHOR'S ORGANIZ ATION 06/04/2024 [facility] Patient Care team informatio n (unrecognized section and content) Personnel Name: Anabell Degroot DO Address: Address: [address] [place], [place] [address], [address] [place], [place] [address]RUST Team MemberRelationshipSpecialtyStart DateEnd Date Anabell Degroot DO [address] [facility] [address] [place] [address] PCP - General06/27/23Team MemberRelationshipSpecialtyStart DateEnd Date Anabell Degroot DO [address] [address] PCP - General06/27/23Team MemberRelationshipSpecialtyStart DateEnd Date Anabell Degroot DO PCP - General06/27/23Team MemberRelationshipSpecialtyStart DateEnd Date Anabell Degroot DO PCP - General06/27/23 Reason for Visit (unrecogniz ed section and content) SpecialtyDiagnoses / ProceduresReferred By ContactReferred To ContactCardiology Diagnoses Femoral bruit Procedures Vascular US PVR without exercise Guillermina Goldstein MD [address] [facility] 2, [address] [place] [address] [address] Clair DateExpiration DateVisits RequestedVisits [id number] Perform Procedure [id number] / ProceduresReferred By ContactReferred To ContactRadiology Diagnoses Abnormal electrocardiogram (ECG) (EKG) Encounter for preprocedural cardiovascular examination Procedures Nuclear Stress Test CHG MYOCARDIAL SPECT MULTIPLE STUDIES CHG MYOCARDIAL SPECT SINGLE STUDY AT REST OR STRESS WA CV STRS TST XERS&/OR RX CONT ECG W/O I&R WA CV STRS TST XERS&/OR RX CONT ECG I&R ONLY WA CV STRS TST XERS&/OR RX CONT ECG TRCG ONLY WA CV STRS TST XERS&/OR RX CONT ECG W/SI&R Guillermina Goldstein MD [address] [place], [place] [address] Referral IDStaWVUMedicine [facility] DateExpiration DateVisits RequestedVisits [id number]/14/20233/[id number] / Procedures Referred By ContactReferred To ContactCardiology Diagnoses Heart murmur Pre-operative cardiovascular examination Procedures Transthoracic Echo (TTE) Complete WA ECHO TRANSTHORC R-T 2D W/WO M-MODE REC F-UP/LMTD WA DOP ECHOCARD COLOR FLOW VELOCITY MAPPING WA DOP ECHOCARD PULSE WAVE W/SPECTRAL F-UP/LMTD STD Guillermina Goldstein MD [address] [place] [address], [address] [address] Referral IDStatusasonSequatchie DateExpiration DateVisits RequestedVisits [id number] Perform Procedure FOR RECORDS PERTAINING TO PATIENTS [...] BE BASED ON THE PRIMARY CLINICAL RECORDS. [facility]. provides no warranty or guarantee of the accuracy or completeness of information in this document.
== END 2025-09-25 11:08 | disposition home or self-care (01) ==
LOC: WC 11:07
PROVIDERS: PCP Emergency Medicine; Visit Provider Physician Assistant
DX: L97.525 Non-pressure chronic ulcer of other part of left foot with muscle involvement without evidence of necrosis (principal)
CPT/HCPCS: G0463

== ENCOUNTER 2025-10-14 11:31 | Outpatient (OUT) | payer OTHER, SELFPAY ==
--- OUTSIDE RECORDS SUMMARY | 2025-10-14 11:34 | XMS_ITS | Clinical Summary ---
Author Organization [facility] Address [address] [place] [address] Phone Care Team Providers Care Compliance Assistant Name Role Phone Marguerite Degroot Primary Care Provider [phone] Allergies No known active allergies Social History Tobacco UseTypesPacks/DayYears UsedDateSmoking Tobacco: Never AssessedSex and Gender InformationValueDate RecordedSex Assigned at BirthNot on fileLegal Sex Male06/22/2023 3:19 PM EDTGender IdentityNot on fileSexual OrientationNot on file Last Filed Vital Signs Vital SignReadingTime TakenCommentsBlood Nzzikzzh361/6010 11:20 AM EDT Mjgzq432308/15/2023 11:20 AM EDTTemperature--Respiratory Rate--Oxygen Saturation-- Inhaled Oxygen Concentration--Galbgr87 kg (205 lb)08/15/2023 11:20 AM EDTHeight 190.5 cm (6' 3 )08/15/2023 11:20 AM EDTBody Mass Index25.6208/15/2023 11:20 AM EDT Plan of Treatment Health MaintenanceDue DateLast DoneCommentsCT Ahvuyqbuwdoy26/03/1971Colonoscopy 1970Colorectal Cancer Ynzyqxxur11/03/1971FIT-DNA (Cologuard)1970FIT 1970HIV Wfqynltiw80/03/1971Lipid Panel1970 2820Jsfqmvmbiabfi21/03/1971 Yearly Adult Dhvklqeu47/03/1971MMR Vaccines (1 of 1 - Standard series)12/24/1971 Diabetes Ixmsquini39/03/1989Hepatitis C Ebeqdiixq35/03/1989Hepatitis B Vaccines (1 of 3 - 19+ 3-dose series)1989DTaP/Tdap/Td Vaccines (1 - Tdap)1992 PSA Prostate Cancer Tawcushln51/03/2021Pneumococcal Vaccine (1 of 1 - PCV) 2020Zoster Vaccines (1 of 2)2020OVID-19 Vaccine (1 - 2024- season)2025Influenza Vaccine (#1)2025HIB VaccinesAged OutNo longer eligible based on patient's [...] ArmijoAccount TypeRelation to PatientDate of BirthPhone Billing AddressPersonal/NpjvmyDkcg97/03/1971 [facility] [place] [address] Care Teams Team MemberRelationshipSpecialtyStart DateEnd Date Marguerite Degroot DO [address] [place] [address] PCP - GeneralFamily Vcljiddl04/24/23
--- OUTSIDE RECORDS SUMMARY | 2025-10-14 11:34 | XMS_ITS | Patient Health Record ---
Author Organization [employer] [facility] [employer] Address [address] [place] [address] Care Team Providers Care Auth Specialist Name Role Phone Angel Morrissey Primary Care [...] a drink containing alcohol in the past year?AcNacqpl8WcpinnpmoailjcZuclbkuySymhozacwg Screening (PHQ-2):Little interest or pleasure in doing thingsNoFeeling down depressed or hopelessNo Behaviors affecting healthPoor/Risky Behaviors:Denies-Communication Barrier: Language Barrier?:No Problems Problem Type SNOMED Code ICD Code Onset Dates Problem Status W/U Status Risk Notes Problem Chronic obstructive pulmonary disease (59237785) Chronic obstructive pulmonary disease (COPD) (J44.9) Activeconfirmed Plan Of Treatment No Information Insurance Providers Payer Name Payer Address Payer Phone Subscriber Number Group Number Insured Name Patient Relationship to Insured Coverage Start Date Coverage End Date z[employer] [address] [place] [address] [id number] Skyler RUTHERFORD - patient is the insuredzMEDICAID [facility] after [employer] [address] [place] [id number], SCOTTSelf - patient is the insured Medical (General) History Medical History History ICD Code LEVEL 3 COPDHospitalization History Reason Date(Month/Year) COPD 2008
--- OUTSIDE RECORDS SUMMARY | 2025-10-14 11:34 | XMS_ITS | Patient Health Record ---
Author Organization [facility] [place] Address [address] [place] [address] Care Team Providers Care Invoice Checker Name Role Phone DO Marguerite Degroot Primary Care Provider Unavailab le Allergies No Known Allergies Reason For Referral No Information Medications Medication SIG (Take, Route, Frequency, Duration) Notes Start Date End Date Status Stiolto Respimat 2.5-2.5 MCG/ACT 2 puffs Inhalation Once a day; Duration: 30 days 3Active Social History Tobacco Use: Social History Observation Description Date Details (start date - stop date) Current Smoker NA - NA Tobacco Use/Smoking Question Answer Notes Patient is a current smoker How often do you smoke cigarettes?every dayAdditional Findings: Tobacco User Heavy cigarette smoker (20-39 cigs/day) Problems Problem Type SNOMED Code ICD Code Onset Dates Problem Status W/U Status Risk Notes Problem Peripheral vascular disease (963118538) Other specified peripheral vascular diseases (I73.89) ActiveconfirmedProblemCentrilobular emphysema (90222016)Centrilobular emphysema (J43.2)ActiveconfirmedProblemMental disorder caused by drug (273509387)Cigarette nicotine dependence with nicotine-induced disorder (F17.219)Activeconfirmed ProblemAcquired hallux rigidus (7042312)Acquired hallux rigidus of left foot (M20.22)ActiveconfirmedProblemMultiple pulmonary nodules (484335204)Multiple pulmonary nodules (R91.8)SqwgtelrbemjzijUfntfvnFwzpi-6-kngetkfksie deficiency (59579669)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)ActiveconfirmedProblem Foot ulcer due to type 2 diabetes mellitus (7150670913986)Diabetes mellitus with foot ulcer due to multiple causes (E11.621)ActiveconfirmedProblemChronic foot ulcer, limited to breakdown of skin, left (L97.521)ActiveconfirmedProblem Abnormal diffusion capacity determined by pulmonary function test (R94.2)Active 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 confirmedProblemNon-pressure chronic ulcer of right heel and midfoot with other specified severity (L97.418)ActiveconfirmedProblemNon-pressure chronic ulcer of other part of left foot with muscle involvement without evidence of necrosis (L97.525)Activeconfirmed Plan Of Treatment No Information Insurance Providers Payer Name Payer Address Payer Phone Subscriber Number Group Number Insured Name Patient Relationship to Insured Coverage Start Date Coverage End Date [employer] [place] [employer] [address] [place] [address] [id number] Guy Jack Self - patient is the insured 1 Medical (General) History Medical History History ICD Code Centrilobular emphysema J43.2 Multiple pulmonary nodules R91.8 Hiatal hernia K44.9 Skin ulcer of left great toe L97.521 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
--- OUTSIDE RECORDS SUMMARY | 2025-10-14 11:35 | XMS_ITS | Patient Health Record ---
Author Organization [facility] Address [facility] [place] [address] Care Team Providers Care Set Builder Name Role Phone Mitch Gamboa Unavailable [phone] Reason For Referral No Information Plan Of Treatment No Information Insurance Providers Payer Name Payer Address Payer Phone Subscriber Number Group Number Insured Name Patient Relationship to Insured Coverage Start Date Coverage End Date [facility] [employer] [facility] [employer] [address] [place] [address] [id number], ScottSelf - patient is the insured
--- OUTSIDE RECORDS SUMMARY | 2025-10-14 11:35 | XMS_ITS | Clinical Summary ---
Author Organization [facility] Address [address] [place] [address] Care Team Providers Care Motor Boss Name Role Phone Marguerite Degroot MD Primary Care Provider [phone] Allergies No known active allergies Medications MedicationSigDispense [...] RecordedSex Assigned at BirthNot on file Legal ZixOraf4901/04/2023 11:25 PM EDTGender IdentityNot on fileSexual Orientation Not on file Plan of Treatment Not on file Insurance * Guarantor: Guy ArmijoAccount TypeRelation to PatientDate of BirthPhone Billing AddressPersonal/OigawfZqqe88/03/1971 [facility] [place] [address] [place] [address] Care Teams Team MemberRelationshipSpecialtyStart DateEnd Date Marguerite Degroot MD PCP - GeneralFamily Hmmzgoir55/9/23
== END 2025-10-14 11:32 | disposition home or self-care (01) ==
LOC: WC 11:32
PROVIDERS: PCP Emergency Medicine; Visit Provider Physician Assistant
DX: L97.525 Non-pressure chronic ulcer of other part of left foot with muscle involvement without evidence of necrosis (principal)
CPT/HCPCS: 11042